=== PATIENT | male | born 1940 | race Caucasian/White ===

== ENCOUNTER 2016-09-24 13:19 | Inpatient (IN) | payer MEDICARE, BC ==
[2016-09-24] MEDS ORDERED: Ventolin HFA Inhaler 60 PUFF INHALER INH PRN (15:54)
[2016-09-24] MEDS: Mometasone/Formoterol 60 PUFF AER INH SCH (18:03)
[2016-09-24] MEDS: guaiFENesin ER 600 MG TAB PO SCH (20:22)
[2016-09-24] MEDS: Sotalol HCl 80 MG TAB PO SCH (20:22)
[2016-09-24] MEDS: Pravastatin Sodium 20 MG TAB PO SCH (20:22)
[2016-09-24] MEDS: Doxycycline 100 MG CAP PO SCH (20:23)
--- NOTE | 2016-09-25 02:03 | HP ---
Admitted to [facility] on 09/24/2016 to extended care. CHIEF COMPLAINT: Weakness. PRESENT ILLNESS: The patient is a 76-year-old white male who has a history of severe COPD with chronic hypoxic respiratory failure requiring supplemental O2. He also has coronary artery disease for which he underwent a single vessel bypass in 2009 and also has had a stent placed in 2002. He had a severe aortic stenosis for which he underwent a bioprosthetic valve replacement in 2009. He has been left with a nonischemic cardiomyopathy and has a history of a biventricular pacemaker defibrillator that was implanted on 02/23/2011 and had a generator replaced on 09/23/2016. He has been hospitalized from 08/31/2016 to 09/06/2016 for acute exacerbation of his COPD and current cardioversion of his atrial fibrillation on 09/03/2016. He most recently was hospitalized at [facility] from 09/17/2016 until 09/24/2016 for again COPD with acute exacerbation with respiratory failure that was managed without ventilator support. During the admission, the patient developed extensive atelectasis of the right lower lobe and underwent a bronchoscopy by his produce assistant, Dr. Vicente , and found extensive pus completely occluding the right lower lobe without any endobronchial lesions. This was suctioned and culture grew a yeast and Swapna. It is felt that this was all consistent with an extensive tracheobronchitis with atelectasis of the right lower lobe. The patient gradually improved. During the hospitalization, he was seen by his general utility maintenance repairer and also from road freight firer. He has a history of atrial fibrillation for which he underwent a cardioversion and has remained in sinus rhythm during the hospitalization. His echocardiogram on 09/01/2016 showed left ventricular ejection fraction of 50-55% with normal functioning aortic valve prosthesis. The patient has a history of a biventricular ICD with ablation initially placed in 2005 with generator replaced in 2010 and then again on 09/23/2016. Patient has been left extremely weak and has been referred to extended care at [facility] in [facility] for continued physical therapy in an effort to try to improve his general functional capability. The patient was dizzy with his soon after his admission and said that he is better, but extremely weak and says his breathing is better, although not quite back to normal. He says he has not been up much and can only walk short distances and requires self. PAST HISTORY: Hospitalized from 09/01/2016 to 09/06/2016. See present illness for details hospitalized from 09/17/2016 until 09/24/2016. See present illness for details. The patient was hospitalized here at [facility] from 2014 to 08/22/2015 for generalized weakness and deconditioning for which he made exceptional progress and was able to be returned to independent living at home. This had followed an intertrochanteric fracture of the left hip that required open reduction and internal fixation with a TF in nail by Dr. Plunkett on 07/26/2015. His hospital stay was initially complicated by a toxic encephalopathy secondary to a combination of surgery, pain medication i.e., fentanyl, and withdrawal from hydrocodone and alprazolam and sleep deprivation this all resolved. The patient has coronary artery disease for which he initially underwent a stent to the right coronary in 2002 and 2009 underwent a single vessel bypass. At the same time, he also underwent a bioprosthetic porcine valve replacement for aortic stenosis. He has nonischemic cardiomyopathy and has required a biventricular pacemaker defibrillator that was generator last replaced on 09/23/2016. Patient has abdominal striae of an abdominal has aneurysm for which he underwent an elective endovascular repair with endograft on 06/26/[address] Chava Nguyễn has a history of COPD, long history of cigarette abuse which he has stopped, he has hypertension, in the past has been treated for depression and anxiety. He also has gastroesophageal reflux. He has had bilateral total knee replacement. He has also had an appendectomy and has a history of diverticular disease of the colon. MEDICINES AT THE TIME OF HIS TRANSFER: Patient was on sotalol 80 mg b.i.d., Colace 100 mg b.i.d., Ecotrin 81 mg daily, MiraLax 17 g in 8 ounces of water daily, Mucinex 1200 mg b.i.d., Pravachol 40 mg daily, prednisone 10 mg daily, pantoprazole 40 mg daily, Theragran-M vitamins 1 a day, Vibramycin 100 mg b.i.d. , Dulcolax tablets 5 mg 1 tablet daily p.r.n. constipation, Dulcolax suppository 10 mg 1 per rectum daily p.r.n. constipation, Maalox 15 mL every 4 hours as needed, Tylenol 650 mg q.4 h., Ultram 50 mg every 4 hours as needed, Dulera 2 inhalations b.i.d., DuoNeb q.i.d. and every 4 hours as needed, Proventil inhaler 2 puffs every 4 hours as needed. ALLERGIES: SULFA DRUGS AND NORTRIPTYLINE. REVIEW OF SYSTEMS: GENERAL: Patient does not think he has had any recent fever. HEAD AND NECK: No complaints. PULMONARY: Patient says his breathing is not yet quite back to normal. He still has a little cough. CARDIOVASCULAR: No chest pain. GASTROINTESTINAL: He got a little bit choked eating his lunch today. Ordinarily, he does alright. He denies any nausea, vomiting or change in bowel habits. : No complaints. ADLs: Before this acute illness. Patient was weak, but was able to walk, dress himself and bathe. He was on oxygen at home. NEURO/PSYCHIATRIC: The patient has had trouble with anxiety and depression and during his hospitalization he had asked the antidepressant to be stopped because he thought he was doing fine there and he thought the medicine was over sedating him. SOCIAL HISTORY: Patient lives at home with his who assists with his care. Patient is retired that. CODE STATUS: Full code. PHYSICAL EXAMINATION: GENERAL: Shows a 76-year-old white male who is sitting up in bed. He is alert , talkative, oriented to time, place and person. He seems extremely weak, but not in any acute distress. He recognizes me and knew that he was here in [place] at the hospital. VITAL SIGNS: Shows a temperature of 98.9, pulse 69, respirations 20, O2 sat 90 % on 1-1/2 liters, and blood pressure 133/83. His weight is 150. HEAD: Normocephalic and atraumatic. EYES: Pupils are equal, round, and reactive. EARS: TMs are clear. NOSE: Normal. MOUTH AND THROAT: Normal. NECK: Carotids are equal and strong, no bruits. Thyroid not enlarged. LUNGS: Patient has fair breath sounds with some expiratory wheeze and rhonchi which are chronic for him. There were no rales. HEART: Regular rate. No murmurs. Patient has an ICD in the left upper anterior chest. The overlying the incision has andrei. There is no redness and on the dressing there is just a small spot of old blood and there is no active bleeding. ABDOMEN: Soft. No organomegaly. No areas of tenderness. Bruising over the lower abdomen. EXTREMITIES: No edema. NEUROLOGIC: Patient is oriented to time, place, person and situation, and he recognizes me, knows where he is. He has generalized weakness, but no focal weakness. IMPRESSION: 1. Generalized weakness and deconditioning, followed two hospitalization first from 08/31/2016 to 09/06/2016 and the second from 09/17/2016 until 09/24/2016, both for acute exacerbations of his COPD with respiratory failure and atrial fibrillation. 2. Recent hospitalizations from 09/17/2016 until 09/24/2016 for: A. Acute exacerbation of chronic obstructive pulmonary disease with respiratory failure with atelectasis of the right lower lobe from severe tracheobronchitis requiring bronchoscopy. B. Recent cardioversion from atrial fibrillation to normal sinus rhythm on 11/2015 and remains in sinus rhythm. C. Replacement of biventricular ICD pacemaker on 09/23/2016. D. Bronchoscopy on 09/20/2016 for right lower lobe atelectasis with removal of extensive pus completely occluding the right lower lobe with no endobronchial lesion and culture growing Swapna. 3. Coronary artery disease. A. Status post stent placement, right coronary artery in 2002. B. Status post aortic single vessel aortic valve bypass with aortic valve replacement in 2009. 4. Aortic stenosis. A. Status post aortic valve replacement with a bovina bioprosthetic valve in 2009. 5. Nonischemic cardiomyopathy. A. Required initial biventricular ICD in 2005, generator replaced 2010 and again generator replaced on 09/23/2016. B. Echocardiogram on 09/01/2016 showed an LV ejection fraction of 50-55%, normal functioning aortic valve prosthesis, bioprosthetic. 6. Severe chronic obstructive pulmonary disease complicated by chronic hypoxemia requiring supplemental O2. 7. Hypertension. 8. Hyperlipidemia. 9. Obstructive sleep apnea for which he uses a CPAP. 10. Constipation. 11. History of depression. A. Recently, the patient has opted to stop his antidepressant fluoxetine. 12. Atrial fibrillation, paroxysmal. A. Status post cardioversion on 09/03/2016. B. Remains in sinus rhythm as of 09/24/2016. PLAN: Patient has been admitted to extended care for physical therapy in an effort to try to improve his general strength, deconditioning and hope that his functional capabilities can be increased such that he will be able to manage at his home again with his . HAMIDA
[2016-09-25] MEDS: Mometasone/Formoterol 60 PUFF AER INH SCH ×2 (06:00→18:14)
[2016-09-25 08:07] LABS: Anion Gap 14 mmol/L (10-20); Carbon Dioxide 26 mmol/L (23-31); Chloride 96 mmol/L (98-107); Potassium 3.8 mmol/L (3.5-5.1); Sodium 132 mmol/L (136-145)
[2016-09-25 08:08] LABS: ALT (SGPT) 21 U/L (0-55); AST (SGOT) 18 U/L (5-34); Albumin 2.7 g/dL (3.4-4.8); Alkaline Phosphatase 47 U/L (40-150); BUN (Urea Nitrogen) 10 mg/dL (8.4-25.7); Bilirubin, Total 0.8 mg/dL (0.2-1.2); Calc. Creatinine Clearance 114 mL/min (70-130); Calcium 8.4 mg/dL (7.8-10.44); Estimated GFR-MDRD Greater than 90; Globulin 2.1 g/dL (2.4-3.5); Glucose 71 mg/dL (83-110); Protein, Total 4.8 g/dL (5.8-8.1)
[2016-09-25 08:32] LABS: Hemoglobin 9.9 g/dL (14.0-18.0); Mean Corpuscular HGB CONC 33.8 g/dL (32.0-36.0); Mean Corpuscular Hemoglobin 32.7 pg (27.0-31.0); Mean Corpuscular Volume 96.6 fl (80.0-94.0); Mean Platelet Volume 6.8 fL (7.4-10.4); Platelet Count 156 thou/uL (130-400); RBC Distribution Width 15.3 % (11.5-14.5); Red Blood Cell (RBC) Count 3.03 mill/uL (4.70-6.10); White Blood Cell (WBC) Count 6.8 thou/uL (4.8-10.8)
[2016-09-25 08:34] LABS: Band 12 % (5-11); MDiff Complete? YES; Neutrophil 80 % (42-75)
[2016-09-25 08:35] LABS: Anisocytosis SLIGHT = 6-15 cells (100X) (0-5/hpf); Delete Auto Diff?? YES; Hypochromia MODERATE=16-30 cells (100X) (0-5/hpf); Lymphocytes 6 % (21-51); Macrocytosis SLIGHT = 6-15 cells (100X) (0-5/hpf); Monocytes 2 % (0-10); Target Cells SLIGHT = 2-5 cells (100X) (0-1/hpf)
[2016-09-25] MEDS: guaiFENesin ER 600 MG TAB PO SCH ×2 (08:55→20:46)
[2016-09-25] MEDS: predniSONE 20 MG TAB PO SCH (08:56)
[2016-09-25] MEDS: Doxycycline 100 MG CAP PO SCH ×2 (08:57→20:46)
[2016-09-25] MEDS: Aspirin 81 mg Enteric Coated Tablet PO SCH (08:57)
[2016-09-25] MEDS: Multivit, Therapeutic 1 TAB PO SCH (09:02)
[2016-09-25] MEDS: Polyethylene Glycol 3350 17 GM Packet PO SCH (09:02)
[2016-09-25] MEDS: Sotalol HCl 80 MG TAB PO SCH ×2 (09:03→20:46)
[2016-09-25] MEDS: Pravastatin Sodium 20 MG TAB PO SCH (20:46)
--- NOTE | 2016-09-26 07:22 | PRG ---
DATE OF SERVICE: 09/25/2016 SUBJECTIVE: The patient said he is doing okay today. He said he got a little choked eating, but he says he does better if he just really eat slow and takes his time. OBJECTIVE: GENERAL: The patient is in bed with head elevated about 30 degrees. He appears comfortable and in no distress. VITAL SIGNS: His temperature is 97.7, pulse 70, respirations 20, O2 sat 95% on 2 liters, blood pres sure 153/82. LUNGS: Breath sounds are moderate. There are no rales. The patient has some chronic wheezes over the posterior chest. HEART: Regular rate. EXTREMITIES: No edema. The patient is wearing said serial compression devices on his legs. LABORATORY DATA: His lab shows an H\T\H of 9 and 29.3, white blood cell count is 6800 with 80% segs , 6% lymphocytes, and platelet count of 156,000. Sodium 132, potassium 3.8, BUN 10, creatinine 0.53 , GFR over 90, glucose 71, albumin 2.7. The patient had a CT scan of the abdomen and pelvis that was done on 09/19/2016 that showed a right abdominal wall rectus muscle hematoma. As a consequence, his Eliquis has been held and also the Roman enox, he has not received. Presently for DVT prophylaxis, he is using the serial compression device s on the legs. ASSESSMENT: 1. Generalized weakness and deconditioning, followed two hospitalization first from 08/31/2016 to 09/06/2016 and the second from 09/17/2016 until 09/24/2016, both for acute exacerbations of his COPD with respiratory failure and atrial fibrillation. 2. Recent hospitalizations from 09/17/2016 until 09/24/2016 for: A. Acute exacerbation of chronic obstructive pulmonary disease with respiratory failure with atelectasis of the right lower lobe from severe tracheobronchitis requiring bronchoscopy. B. Recent cardioversion from atrial fibrillation to normal sinus rhythm on 09/03/2016 and remai ns in sinus rhythm. C. Replacement of biventricular ICD pacemaker on 09/23/2016. D. Bronchoscopy on 09/20/2016 for right lower lobe atelectasis with removal of extensive pus c ompletely occluding the right lower lobe with no endobronchial lesion and culture growing Swapna. 3. Coronary artery disease. A. Status post stent placement, right coronary artery in 2002. B. Status post aortic single vessel aortic valve bypass with aortic valve replacement in 2009. 4. Aortic stenosis. A. Status post aortic valve replacement with a bovina bioprosthetic valve in 2009. 5. Nonischemic cardiomyopathy. A. Required initial biventricular ICD in 2005, generator replaced 2010 and again generator repl aced on 09/23/2016. B. Echocardiogram on 09/01/2016 showed an LV ejection fraction of 50-55%, normal functioning aortic valve prosthesis, bioprosthetic. 6. Severe chronic obstructive pulmonary disease complicated by chronic hypoxemia requiring suppleme ntal O2. 7. Hypertension. 8. Hyperlipidemia. 9. Obstructive sleep apnea for which he uses a CPAP. 10. Constipation. 11. History of depression. A. Recently, the patient has opted to stop his antidepressant fluoxetine. 12. Atrial fibrillation, paroxysmal. A. Status post cardioversion on 09/03/2016. B. Remains in sinus rhythm as of 09/24/2016. C. Anticoagulants being held due to right abdominal rectus muscle hematoma. PLAN: Continue PT. Continue present care. Encourage patient to sit upright when eating. Eat slow and chew foods well. The patient is using SCDs for DVT prophylaxis on his legs since anticoagulant Eliquis was stopped and Lovenox not started due to the rectus muscle hematoma.
[2016-09-26] MEDS: Polyethylene Glycol 3350 17 GM Packet PO SCH (09:48)
[2016-09-26] MEDS: Mometasone/Formoterol 60 PUFF AER INH SCH ×2 (09:48→21:50)
[2016-09-26] MEDS: Doxycycline 100 MG CAP PO SCH ×2 (09:49→21:51)
[2016-09-26] MEDS: guaiFENesin ER 600 MG TAB PO SCH ×2 (09:49→21:52)
[2016-09-26] MEDS: Sotalol HCl 80 MG TAB PO SCH ×2 (09:49→21:51)
[2016-09-26] MEDS: predniSONE 20 MG TAB PO SCH (09:49)
[2016-09-26] MEDS: Multivit, Therapeutic 1 TAB PO SCH (09:49)
[2016-09-26] MEDS: Aspirin 81 mg Enteric Coated Tablet PO SCH (09:50)
[2016-09-26] MEDS ORDERED: Fluconazole 100 MG TAB PO SCH (12:15)
[2016-09-26] MEDS: Nystatin 500,000 UNITS/5 ML UDCUP SSW SCH ×3 (12:24→21:52)
[2016-09-26] MEDS: Acetaminophen 325 MG TAB PO PRN (14:17)
[2016-09-26] MEDS: Pravastatin Sodium 20 MG TAB PO SCH (21:52)
[2016-09-27] MEDS: Mometasone/Formoterol 60 PUFF AER INH SCH ×2 (08:40→19:12)
[2016-09-27] MEDS: predniSONE 20 MG TAB PO SCH (08:40)
[2016-09-27] MEDS: Aspirin 81 mg Enteric Coated Tablet PO SCH (08:41)
[2016-09-27] MEDS: Fluconazole 100 MG TAB PO SCH (08:41)
[2016-09-27] MEDS: Doxycycline 100 MG CAP PO SCH ×2 (08:41→20:37)
[2016-09-27] MEDS: Nystatin 500,000 UNITS/5 ML UDCUP SSW SCH ×4 (08:42→20:37)
[2016-09-27] MEDS: Multivit, Therapeutic 1 TAB PO SCH (08:42)
[2016-09-27] MEDS: guaiFENesin ER 600 MG TAB PO SCH ×2 (08:42→20:36)
[2016-09-27] MEDS: Sotalol HCl 80 MG TAB PO SCH ×2 (08:43→20:37)
[2016-09-27] MEDS: Polyethylene Glycol 3350 17 GM Packet PO SCH (08:46)
--- NOTE | 2016-09-27 18:32 | PRG ---
DATE OF SERVICE: 09/27/2016 SUBJECTIVE: The patient said he is not sleeping very good at night at home. He says he uses melato karis. The patient said his mouth had been sore, it felt like a yeast infection. Yesterday, he was s tarted on Mycostatin oral suspension and to swish and swallow and Diflucan. Today, he says he feels a little better. OBJECTIVE: GENERAL: The patient is sitting up in a bedside chair. He is alert and appears comfortable, in no distress. VITAL SIGNS: Shows temperature of 98.4, pulse 79, blood pressure 121/75, respirations 16, O2 sat 96 % on 2 liters. LUNGS: Breath sounds are some rhonchi on forced expiration and mild expiratory wheeze. HEART: Reg ular rate. EXTREMITIES: No edema. HEENT: Mouth the tongue has increased red discoloration. ASSESSMENT: 1. Generalized weakness and deconditioning, followed two hospitalization first from 08/31/2016 to 1 11/07/2015 and the second from 09/17/2016 until 09/24/2016, both for acute exacerbations of his COPD with respiratory failure and atrial fibrillation. A. Mild improvement as of 09/27/2016. 2. Recent hospitalizations from 09/17/2016 until 09/24/2016 for: A. Acute exacerbation of chronic obstructive pulmonary disease with respiratory failure with at electasis of the right lower lobe from severe tracheobronchitis requiring bronchoscopy. B. Recent cardioversion from atrial fibrillation to normal sinus rhythm on 09/03/2016 and remai ns in sinus rhythm. C. Replacement of biventricular ICD pacemaker on 09/23/2016. D. Bronchoscopy on 09/20/2016 for right lower lobe atelectasis with removal of extensive pus co mpletely occluding the right lower lobe with no endobronchial lesion and culture growing Swapna. 3. Coronary artery disease. A. Status post stent placement, right coronary artery in 2002. B. Status post aortic single vessel aortic valve bypass with aortic valve replacement in 2009. C. Gradual improvement as of 09/27/2016 4. Aortic stenosis. A. Status post aortic valve replacement with a bovina bioprosthetic valve in 2009. 5. Nonischemic cardiomyopathy. A. Required initial biventricular ICD in 2005, generator replaced 2010 and again generator repl aced on 09/23/2016. B. Echocardiogram on 09/01/2016 showed an LV ejection fraction of 50-55%, normal functioning ao rtic valve prosthesis, bioprosthetic. 6. Severe chronic obstructive pulmonary disease complicated by chronic hypoxemia requiring suppleme ntal O2. 7. Hypertension. 8. Hyperlipidemia. 9. Obstructive sleep apnea for which he uses a CPAP. 10. Constipation. 11. History of depression. A. Recently, the patient has opted to stop his antidepressant fluoxetine. 12. Atrial fibrillation, paroxysmal. A. Status post cardioversion on 09/03/2016. B. Remains in sinus rhythm as of 09/24/2016. C. Anticoagulants being held due to right abdominal rectus muscle hematoma. 13. Oral candidiasis. 14. Insomnia. PLAN: We will schedule patient's DuoNeb treatments q.i.d. and may use additionally every [address] him on melatonin at bedtime to help with sleep. We will continue the Mycostatin ora l suspension for a total of 10 days and Diflucan orally for a total of 7 days. Continue physical th erapy. The incision over the left upper anterior chest from the ICD generator change out is healing well.
[2016-09-27] MEDS: Melatonin 3 MG TAB PO SCH (20:37)
[2016-09-27] MEDS: Pravastatin Sodium 20 MG TAB PO SCH (20:37)
[2016-09-28] MEDS: Mometasone/Formoterol 60 PUFF AER INH SCH ×2 (06:05→18:39)
[2016-09-28] MEDS: Polyethylene Glycol 3350 17 GM Packet PO SCH (08:44)
[2016-09-28] MEDS: guaiFENesin ER 600 MG TAB PO SCH ×2 (08:45→20:23)
[2016-09-28] MEDS: Sotalol HCl 80 MG TAB PO SCH ×2 (08:45→20:24)
[2016-09-28] MEDS: Aspirin 81 mg Enteric Coated Tablet PO SCH (08:45)
[2016-09-28] MEDS: Multivit, Therapeutic 1 TAB PO SCH (08:45)
[2016-09-28] MEDS: Fluconazole 100 MG TAB PO SCH (08:45)
[2016-09-28] MEDS: predniSONE 20 MG TAB PO SCH (08:45)
[2016-09-28] MEDS: Doxycycline 100 MG CAP PO SCH ×2 (08:46→20:23)
[2016-09-28] MEDS: Nystatin 500,000 UNITS/5 ML UDCUP SSW SCH ×4 (08:46→20:23)
--- NOTE | 2016-09-28 09:18 | PRG ---
DATE OF SERVICE: 09/28/2016 SUBJECTIVE: The patient said that his mouth is sore. The patient walked this morning with his O2 a t 2 liters by nasal cannula on. His O2 sat after walking was 86%, but after sitting and his nebs tr eatment, it was up to 96%. OBJECTIVE: The patient is sitting in his bedside chair. He is alert. He appears comfortable, not in any acute distress. The mouth and tongue is less red. There are no ulcerations. The patient h as only a few remaining teeth. His lungs have fair breath sounds. There was no wheezing, no rales after his neb treatments. The nurse reported before the breathing treatment there was some fine whe ezes on expiration. Heart, regular rate. Extremities, no edema. ASSESSMENT: 1. Generalized weakness and deconditioning, followed two hospitalization first from 08/31/2016 to 11/07/2015 and the second from 09/17/2016 until 09/24/2016, both for acute exacerbations of his COPD with respiratory failure and atrial fibrillation. A. Very slow gradual improvement as of 09/28/2016. 2. Recent hospitalizations from 09/17/2016 until 09/24/2016 for: A. Acute exacerbation of chronic obstructive pulmonary disease with respiratory failure with at electasis of the right lower lobe from severe tracheobronchitis requiring bronchoscopy. B. Recent cardioversion from atrial fibrillation to normal sinus rhythm on 09/03/2016 and remai ns in sinus rhythm. C. Replacement of biventricular ICD pacemaker on 09/23/2016. D. Bronchoscopy on 09/20/2016 for right lower lobe atelectasis with removal of extensive pus co mpletely occluding the right lower lobe with no endobronchial lesion and culture growing Swapna. 3. Coronary artery disease. A. Status post stent placement, right coronary artery in 2002. B. Status post aortic single vessel aortic valve bypass with aortic valve replacement in 2009. C. Gradual improvement as of 09/27/2016 4. Aortic stenosis. A. Status post aortic valve replacement with a bovina bioprosthetic valve in 2009. 5. Nonischemic cardiomyopathy. A. Required initial biventricular ICD in 2005, generator replaced 2010 and again generator repl aced on 09/23/2016. B. Echocardiogram on 09/01/2016 showed an LV ejection fraction of 50-55%, normal functioning ao rtic valve prosthesis, bioprosthetic. 6. Severe chronic obstructive pulmonary disease complicated by chronic hypoxemia requiring suppleme ntal O2. 7. Hypertension. 8. Hyperlipidemia. 9. Obstructive sleep apnea for which he uses a CPAP. 10. Constipation. 11. History of depression. A. Recently, the patient has opted to stop his antidepressant fluoxetine. 12. Atrial fibrillation, paroxysmal. A. Status post cardioversion on 09/03/2016. B. Remains in sinus rhythm as of 09/24/2016. C. Anticoagulants being held due to right abdominal rectus muscle hematoma. 13. Oral candidiasis. A. Mild improvement, but still symptomatic as of 09/28/2016. 14. Insomnia. PLAN: Continue present care. Continue PT. Continue continuous O2. Will add Spiriva to his COPD r eghiram.
[2016-09-28] MEDS ORDERED: Ipratropium Bromide 2.5 ml Neb NEB SCH (13:00)
[2016-09-28] MEDS: Acetaminophen 325 MG TAB PO PRN (14:09)
[2016-09-28] MEDS: Melatonin 3 MG TAB PO SCH (20:23)
[2016-09-28] MEDS: Pravastatin Sodium 20 MG TAB PO SCH (20:24)
[2016-09-29] MEDS: Mometasone/Formoterol 60 PUFF AER INH SCH ×2 (08:38→18:23)
[2016-09-29] MEDS: guaiFENesin ER 600 MG TAB PO SCH ×2 (08:39→21:17)
[2016-09-29] MEDS: Nystatin 500,000 UNITS/5 ML UDCUP SSW SCH ×4 (08:39→21:17)
[2016-09-29] MEDS: predniSONE 20 MG TAB PO SCH (08:40)
[2016-09-29] MEDS: Multivit, Therapeutic 1 TAB PO SCH (08:40)
[2016-09-29] MEDS: Doxycycline 100 MG CAP PO SCH ×2 (08:40→21:17)
[2016-09-29] MEDS: Aspirin 81 mg Enteric Coated Tablet PO SCH (08:40)
[2016-09-29] MEDS: Polyethylene Glycol 3350 17 GM Packet PO SCH (08:40)
[2016-09-29] MEDS: Fluconazole 100 MG TAB PO SCH (08:40)
[2016-09-29] MEDS: Sotalol HCl 80 MG TAB PO SCH ×2 (08:40→21:18)
--- NOTE | 2016-09-29 13:03 | PRG ---
DATE OF SERVICE: 09/29/2016 SUBJECTIVE: The patient is lying in bed, said he is feeling okay. Mouth is still sore. He is wait ing until after breakfast for physical therapy. His breathing is doing okay. OBJECTIVE: The patient is lying in bed, alert, and appears comfortable in no distress. His temp is 97.6, pulse 71, respirations 20, O2 sat 96%, blood pressure 109/81. Lungs with fair breath sounds with some mild expiratory wheeze, otherwise chest is clear. Heart, regular rate. Mouth; the baldomero e has a nice pink appearance. There are no ulcerations or white plaques on the buccal mucosa, nor o n the tongue. Overall the mouth looks better. ASSESSMENT: 1. Generalized weakness and deconditioning, followed two hospitalization first from 08/31/2016 to 1 11/07/2015 and the second from 09/17/2016 until 09/24/2016, both for acute exacerbations of his COPD with respiratory failure and atrial fibrillation. A. Very slow gradual improvement as of 09/29/2016. 2. Recent hospitalizations from 09/17/2016 until 09/24/2016 for: A. Acute exacerbation of chronic obstructive pulmonary disease with respiratory failure with at electasis of the right lower lobe from severe tracheobronchitis requiring bronchoscopy. B. Recent cardioversion from atrial fibrillation to normal sinus rhythm on 09/03/2016 and remai ns in sinus rhythm. C. Replacement of biventricular ICD pacemaker on 09/23/2016. D. Bronchoscopy on 09/20/2016 for right lower lobe atelectasis with removal of extensive pus co mpletely occluding the right lower lobe with no endobronchial lesion and culture growing Swapna. 3. Coronary artery disease. A. Status post stent placement, right coronary artery in 2002. B. Status post aortic single vessel aortic valve bypass with aortic valve replacement in 2009. C. Gradual improvement as of 09/27/2016 4. Aortic stenosis. A. Status post aortic valve replacement with a bovina bioprosthetic valve in 2009. 5. Nonischemic cardiomyopathy. A. Required initial biventricular ICD in 2005, generator replaced 2010 and again generator repl aced on 09/23/2016. B. Echocardiogram on 09/01/2016 showed an LV ejection fraction of 50-55%, normal functioning ao rtic valve prosthesis, bioprosthetic. C. No evidence of acute congestive heart failure as of 09/29/2016. 6. Severe chronic obstructive pulmonary disease complicated by chronic hypoxemia requiring suppleme ntal O2. 7. Hypertension. 8. Hyperlipidemia. 9. Obstructive sleep apnea for which he uses a CPAP. 10. Constipation. 11. History of depression. A. Recently, the patient has opted to stop his antidepressant fluoxetine. 12. Atrial fibrillation, paroxysmal. A. Status post cardioversion on 09/03/2016. B. Remains in sinus rhythm as of 09/24/2016. C. Anticoagulants being held due to right abdominal rectus muscle hematoma. 13. Oral candidiasis. A. Mild improvement, but still symptomatic as of 09/29/2016. 14. Insomnia. PLAN: Continue present care. Continue Mycostatin oral suspension and the Diflucan.
[2016-09-29] MEDS: Pravastatin Sodium 20 MG TAB PO SCH (21:18)
[2016-09-29] MEDS: Melatonin 3 MG TAB PO SCH (21:19)
[2016-09-30] MEDS: Mometasone/Formoterol 60 PUFF AER INH SCH ×2 (05:33→19:56)
[2016-09-30] MEDS: Nystatin 500,000 UNITS/5 ML UDCUP SSW SCH ×4 (08:31→22:03)
[2016-09-30] MEDS: predniSONE 20 MG TAB PO SCH (08:32)
[2016-09-30] MEDS: Multivit, Therapeutic 1 TAB PO SCH (08:32)
[2016-09-30] MEDS: Fluconazole 100 MG TAB PO SCH (08:32)
[2016-09-30] MEDS: Polyethylene Glycol 3350 17 GM Packet PO SCH ×2 (08:32→08:33)
[2016-09-30] MEDS: guaiFENesin ER 600 MG TAB PO SCH ×2 (08:32→22:02)
[2016-09-30] MEDS: Doxycycline 100 MG CAP PO SCH ×2 (08:33→22:02)
[2016-09-30] MEDS: Sotalol HCl 80 MG TAB PO SCH ×2 (08:33→22:03)
[2016-09-30] MEDS: Aspirin 81 mg Enteric Coated Tablet PO SCH (08:33)
--- NOTE | 2016-09-30 12:22 | PRG ---
DATE OF SERVICE: 09/30/2016 SUBJECTIVE: The patient said he slept pretty good last night. The patient says that he sat up this morning he just got where he would not feeling good and was anxious. The nurses report that after any activity he gets very anxious and wants some breathing treatment. The patient says he has no ap petite and just not eating. OBJECTIVE: GENERAL: The patient is sitting up in bed, is anxious, but does not appear in any acute respiratory distress. VITAL SIGNS: His temperature is 97.5, pulse 75, respirations 22, O2 saturation on 3 liters last nig ht was 93%. LUNGS: Fair breath sounds. There are some rales at the bases posteriorly and some mild wheeze on e xpiration. HEART: Regular rate. EXTREMITIES: No edema. ASSESSMENT: 1. Generalized weakness and deconditioning, followed two hospitalization first from 08/31/2016 to 1 11/07/2015 and the second from 09/17/2016 until 09/24/2016, both for acute exacerbations of his COPD with respiratory failure and atrial fibrillation. A. Very slow improvement, but has some shortness of breath with exertion as of 09/30/2016. 2. Recent hospitalizations from 09/17/2016 until 09/24/2016 for: A. Acute exacerbation of chronic obstructive pulmonary disease with respiratory failure with at electasis of the right lower lobe from severe tracheobronchitis requiring bronchoscopy. B. Recent cardioversion from atrial fibrillation to normal sinus rhythm on 09/03/2016 and remai ns in sinus rhythm. C. Replacement of biventricular ICD pacemaker on 09/23/2016. D. Bronchoscopy on 09/20/2016 for right lower lobe atelectasis with removal of extensive pus co mpletely occluding the right lower lobe with no endobronchial lesion and culture growing Swapna. 3. Coronary artery disease. A. Status post stent placement, right coronary artery in 2002. B. Status post aortic single vessel aortic valve bypass with aortic valve replacement in 2009. C. Stable as of 09/30/2016. 4. Aortic stenosis. A. Status post aortic valve replacement with a bovina bioprosthetic valve in 2009. 5. Nonischemic cardiomyopathy. A. Required initial biventricular ICD in 2005, generator replaced 2010 and again generator repl aced on 09/23/2016. B. Echocardiogram on 09/01/2016 showed an LV ejection fraction of 50-55%, normal functioning ao rtic valve prosthesis, bioprosthetic. C. No evidence of acute congestive heart failure as of 09/30/2016. 6. Severe chronic obstructive pulmonary disease complicated by chronic hypoxemia requiring suppleme ntal O2. 7. Hypertension. 8. Hyperlipidemia. 9. Obstructive sleep apnea for which he uses a CPAP. 10. Constipation. 11. History of depression. A. Recently, the patient has opted to stop his antidepressant fluoxetine. 12. Atrial fibrillation, paroxysmal. A. Status post cardioversion on 09/03/2016. B. Remains in sinus rhythm as of 09/24/2016. C. Anticoagulants being held due to right abdominal rectus muscle hematoma. 13. Oral candidiasis. A. Improved as of 09/30/2016. 14. Insomnia. 15. Anxiety and depression. 16. Anorexia. PLAN: Continue physical therapy, encourage the patient to participate. We will place the patient o n mirtazapine 30 mg at bedtime to try to help with his appetite and also help with anxiety and depre ssion.
--- NOTE | 2016-09-30 12:52 | PRG ---
DATE OF SERVICE: 09/30/2016 SUBJECTIVE: This morning, the patient said he just has not felt right. He has felt more short of b reath. He has been anxious with this. He started feeling better and then mid morning did walk with therapy with his oxygen, but even with this, his O2 sat dropped to 86. His went back to bed and O2 temporarily was up to 4 liters. He is lying in bed now just at 3.5 liters. The nurse said he seem s to have settled down. He had become very anxious. OBJECTIVE: The patient is lying in bed, looks in no respiratory distress. The patient's O2 sat 89% on 3.5 liters. His blood pressure earlier was 120/73, respirations are 18. His lungs have moderat e breath sounds, much better from this morning. There is no wheezing, no rales. Overall, his lungs sound clear. Heart, regular rate. Extremities, no edema. The EKG shows a paced rhythm with a rat e of 74. His chest x-ray shows the lungs are clear except for a small left-sided pleural effusion o bscuring the costophrenic angle and also possible little fluid or atelectasis in the major fissure. ASSESSMENT: Episode of increased shortness of breath that was exacerbated with exercise with drop i n her O2 sat secondary to his severe chronic obstructive pulmonary disease with chronic hypoxic resp iratory failure requiring the supplemental O2. The patient may have a little bit of mild failure wi th the small left pleural effusion fluid or atelectasis in the major fissure. We will start patient on furosemide 40 mg daily and see if this will help some. We will weigh daily. Recheck electrolyt es and CBC in the morning. Continue nebulizer treatments. Continue supplemental O2. I had ordered mirtazapine, which will start tonight for his anxiety and depression. 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
--- NOTE | 2016-09-30 15:48 | RAD ---
PORTABLE AP CHEST XRAY: DATE: 09/30/16. HISTORY: Low oxygen saturation and shortness of breath. FINDINGS: Compared to the study on 09/17/16. The linear parenchymal changes of the right lung base have improved. Pleural and parenchymal change s of the left lung base have also improved. However, there are now interstitial and patchy alveolar opacities present within the right mid lung zone in the region of previous nodular density. This c ould be related to pneumonia and followup to complete resolution is recommended to exclude neoplasti c process. Postsurgical changes related to median sternotomy are noted. Triple-lead left subclavian AICD devic e is unchanged in position. No other interval change. IMPRESSION: 1. Interval development of interstitial and alveolar opacities in the right mid lung zone which is probably related to pneumonia. However, followup to complete resolution is recommended to ensure re solution as there was a nodular density seen in this region on prior exam. 2. Improvement in aeration at each lung base. POS: CARLOS
[2016-09-30] MEDS: Melatonin 3 MG TAB PO SCH (22:01)
[2016-09-30] MEDS: Mirtazapine 15 MG TAB PO SCH (22:02)
[2016-09-30] MEDS: Pravastatin Sodium 20 MG TAB PO SCH (22:03)
[2016-10-01 07:18] LABS: #Lymphocytes 0.9 thou/uL (1.20-3.40); #Monocytes 0.5 thou/uL (0.11-0.59); #Neutrophils 6.4 thou/uL (1.40-6.50); %Basophils 0.5 % (0.0-1.0); %Eosinophils 0.2 % (0.0-10.0); %Lymphocytes 11.6 % (21.0-51.0); %Monocytes 6.9 % (0.0-10.0); %Neutrophils 80.8 % (42.0-75.0); Hemoglobin 11.7 g/dL (14.0-18.0); Mean Corpuscular HGB CONC 32.9 g/dL (32.0-36.0); Mean Corpuscular Hemoglobin 32.1 pg (27.0-31.0); Mean Corpuscular Volume 97.5 fl (80.0-94.0); Mean Platelet Volume 6.1 fL (7.4-10.4); Platelet Count 174 thou/uL (130-400); RBC Distribution Width 15.4 % (11.5-14.5); Red Blood Cell (RBC) Count 3.66 mill/uL (4.70-6.10); White Blood Cell (WBC) Count 7.9 thou/uL (4.8-10.8)
[2016-10-01 07:22] LABS: Anion Gap 22 mmol/L (10-20); BUN (Urea Nitrogen) 17 mg/dL (8.4-25.7); Calc. Creatinine Clearance 93 mL/min (70-130); Calcium 9.6 mg/dL (7.8-10.44); Carbon Dioxide 24 mmol/L (23-31); Chloride 92 mmol/L (98-107); Estimated GFR-MDRD Greater than 90; Glucose 76 mg/dL (83-110); Potassium 4.8 mmol/L (3.5-5.1); Sodium 133 mmol/L (136-145)
[2016-10-01] MEDS: Mometasone/Formoterol 60 PUFF AER INH SCH ×2 (07:31→18:35)
[2016-10-01] MEDS: Docusate 100 MG CAP PO SCH (08:14)
[2016-10-01] MEDS: Nystatin 500,000 UNITS/5 ML UDCUP SSW SCH ×4 (08:14→21:14)
[2016-10-01] MEDS: Multivit, Therapeutic 1 TAB PO SCH (08:14)
[2016-10-01] MEDS: Doxycycline 100 MG CAP PO SCH ×2 (08:14→21:15)
[2016-10-01] MEDS: guaiFENesin ER 600 MG TAB PO SCH ×2 (08:14→21:17)
[2016-10-01] MEDS: Fluconazole 100 MG TAB PO SCH (08:14)
[2016-10-01] MEDS: Furosemide 40 MG TAB PO SCH (08:14)
[2016-10-01] MEDS: Sotalol HCl 80 MG TAB PO SCH ×2 (08:14→21:14)
[2016-10-01] MEDS: predniSONE 20 MG TAB PO SCH (08:15)
[2016-10-01] MEDS: Aspirin 81 mg Enteric Coated Tablet PO SCH (08:15)
[2016-10-01] MEDS: Saccharomyces boulardii 250 MG CAP PO SCH (09:55)
[2016-10-01] MEDS: Cefdinir 300 MG CAP PO SCH ×2 (09:55→21:15)
--- NOTE | 2016-10-01 10:00 | PRG ---
DATE OF SERVICE: 10/01/2016 SUBJECTIVE: The patient said he had a pretty good night, slept better. He did get started on the m irtazapine 15 mg. I opted to start him on a lower dose 15 mg instead of 30. The patient said he se emed to sleep good. He is anxious to try his breakfast and hopes medicine will help with his appeti te. OBJECTIVE: The patient lying in bed, appears comfortable and in no distress and seems much more rel axed than what he has. He does not appear anxious. He does not appear to be having any shortness o f breath. His temperature is 98, pulse 76, respirations 18, O2 sat 95%, blood pressure 120/73. Bob gs are clear, breath sounds are fair. Heart, regular rate. Extremities, no edema. Radiologist rev iewed the chest x-ray from yesterday and said that the linear parenchymal changes in the right lung base have improved. There is still some small effusion at the left lung base and there is also an i nterstitial and patchy alveolar opacity within the right mid lung zone. This could be related to po ssible underlying pneumonia. ASSESSMENT: 1. Generalized weakness and deconditioning, followed two hospitalization first from 08/31/2016 to 09/06/2016 and the second from 09/17/2016 until 09/24/2016, both for acute exacerbations of his COPD with respiratory failure and atrial fibrillation. A. Very slow improvement, but has some shortness of breath with exertion as of 10/01/2016. 2. Recent hospitalizations from 09/17/2016 until 09/24/2016 for: A. Acute exacerbation of chronic obstructive pulmonary disease with respiratory failure with atelectasis of the right lower lobe from severe tracheobronchitis requiring bronchoscopy. B. Recent cardioversion from atrial fibrillation to normal sinus rhythm on 09/03/2016 and remai ns in sinus rhythm. C. Replacement of biventricular ICD pacemaker on 09/23/2016. D. Bronchoscopy on 09/20/2016 for right lower lobe atelectasis with removal of extensive pus co mpletely occluding the right lower lobe with no endobronchial lesion and culture growing Swapna. 3. Coronary artery disease. A. Status post stent placement, right coronary artery in 2002. B. Status post aortic single vessel aortic valve bypass with aortic valve replacement in 2009. C. Stable as of 09/30/2016. 4. Aortic stenosis. A. Status post aortic valve replacement with a bovina bioprosthetic valve in 2009. 5. Nonischemic cardiomyopathy. A. Required initial biventricular ICD in 2005, generator replaced 2010 and again generator repl aced on 09/23/2016. B. Echocardiogram on 09/01/2016 showed an LV ejection fraction of 50-55%, normal functioning ao rtic valve prosthesis, bioprosthetic. C. The patient has small left pleural effusion and some little fluid or infiltrate in the right middle lobe, possibly secondary to some mild systolic heart failure as of 10/01/2016 for which he was started on furosemide on 09/30/2016. 6. Severe chronic obstructive pulmonary disease complicated by chronic hypoxemia requiring suppleme ntal O2. A. Interstitial and alveolar infiltrate right middle lobe, possible pneumonia on x-ray of 09/30. 7. Hypertension. 8. Hyperlipidemia. 9. Obstructive sleep apnea for which he uses a CPAP. 10. Constipation. 11. History of depression. A. Recently, the patient has opted to stop his antidepressant fluoxetine. 12. Atrial fibrillation, paroxysmal. A. Status post cardioversion on 09/03/2016. B. Remains in sinus rhythm as of 09/24/2016. C. Anticoagulants being held due to right abdominal rectus muscle hematoma. 13. Oral candidiasis. A. Improved as of 10/01/2016. 14. Insomnia. A. Improved as of 10/01/2016. 15. Anxiety and depression. 16. Anorexia. PLAN: Continue present care. The patient is still on the vibramycin that he was placed on during his hospitalization. The patient completes his course of vibramycin as of 10/01/2016. This may be a contributor to the poor appetite. We will not use Levaquin because of potential QT prolongation, will instead use Cefdinir 300 mg b.i.d. in the event there is some pneumonia in that right middle lo be versus some fluid. Will continue PT.
[2016-10-01] MEDS: Pravastatin Sodium 20 MG TAB PO SCH (21:15)
[2016-10-01] MEDS: Mirtazapine 15 MG TAB PO SCH (21:16)
[2016-10-01] MEDS: Melatonin 3 MG TAB PO SCH (21:17)
[2016-10-02] MEDS: Mometasone/Formoterol 60 PUFF AER INH SCH ×2 (07:35→18:06)
[2016-10-02] MEDS: predniSONE 20 MG TAB PO SCH (08:31)
[2016-10-02] MEDS: Docusate 100 MG CAP PO SCH (08:32)
[2016-10-02] MEDS: Cefdinir 300 MG CAP PO SCH ×2 (08:32→20:02)
[2016-10-02] MEDS: Aspirin 81 mg Enteric Coated Tablet PO SCH (08:32)
[2016-10-02] MEDS: Fluconazole 100 MG TAB PO SCH (08:32)
[2016-10-02] MEDS: Sotalol HCl 80 MG TAB PO SCH ×2 (08:33→20:03)
[2016-10-02] MEDS: guaiFENesin ER 600 MG TAB PO SCH ×2 (08:33→20:04)
[2016-10-02] MEDS: Furosemide 40 MG TAB PO SCH (08:33)
[2016-10-02] MEDS: Saccharomyces boulardii 250 MG CAP PO SCH (08:33)
[2016-10-02] MEDS: Multivit, Therapeutic 1 TAB PO SCH (08:34)
[2016-10-02] MEDS: Nystatin 500,000 UNITS/5 ML UDCUP SSW SCH ×4 (08:34→20:02)
--- NOTE | 2016-10-02 15:03 | PRG ---
DATE OF SERVICE: 10/02/2016 SUBJECTIVE: The patient said he is feeling better today. He said he slept good last night and his appetite has been better. His breathing has been better. OBJECTIVE: GENERAL: The patient is lying in bed, looks very comfortable and calm. He appears in no distress. VITAL SIGNS: Shows a temperature of 98.8, pulse 71, respirations 18-20, O2 sat is 92%-97% on 3-1/2 liters, blood pressure 138/92. LUNGS: Clear except for just very minimal rhonchi on expiration. HEART: Regular rate. EXTREMITIES: No edema. ASSESSMENT: 1. Generalized weakness and deconditioning, followed two hospitalization first from 08/31/2016 to 09/06/2016 and the second from 09/17/2016 until 09/24/2016, both for acute exacerbations of his COPD with respiratory failure and atrial fibrillation. A. Gradual improvement as of 10/02/2016. 2. Recent hospitalizations from 09/17/2016 until 09/24/2016 for: A. Acute exacerbation of chronic obstructive pulmonary disease with respiratory failure with atelectasis of the right lower lobe from severe tracheobronchitis requiring bronchoscopy. B. Recent cardioversion from atrial fibrillation to normal sinus rhythm on 09/03/2016 and remai ns in sinus rhythm. C. Replacement of biventricular ICD pacemaker on 09/23/2016. D. Bronchoscopy on 09/20/2016 for right lower lobe atelectasis with removal of extensive pus co mpletely occluding the right lower lobe with no endobronchial lesion and culture growing Swapna. 3. Coronary artery disease. A. Status post stent placement, right coronary artery in 2002. B. Status post aortic single vessel aortic valve bypass with aortic valve replacement in 2009. C. Stable as of 09/30/2016. 4. Aortic stenosis. A. Status post aortic valve replacement with a bovina bioprosthetic valve in 2009. 5. Nonischemic cardiomyopathy. A. Required initial biventricular ICD in 2005, generator replaced 2010 and again generator repl aced on 09/23/2016. B. Echocardiogram on 09/01/2016 showed an LV ejection fraction of 50-55%, normal functioning ao rtic valve prosthesis, bioprosthetic. C. Mild diastolic congestive heart failure, resolving as of 10/02/2016. 6. Severe chronic obstructive pulmonary disease complicated by chronic hypoxemia requiring suppleme ntal O2. A. Improved as of 10/02/2016. 7. Hypertension. 8. Hyperlipidemia. 9. Obstructive sleep apnea for which he uses a CPAP. 10. Constipation. 11. History of depression. A. Recently, the patient has opted to stop his antidepressant fluoxetine. 12. Atrial fibrillation, paroxysmal. A. Status post cardioversion on 09/03/2016. B. Remains in sinus rhythm as of 09/24/2016. C. Anticoagulants being held due to right abdominal rectus muscle hematoma. 13. Oral candidiasis. A. Resolving as of 10/02/2016. 14. Insomnia. A. Improved as of 10/01/2016. 15. Anxiety and depression. Improved as of 10/02/2016. 16. Anorexia. A. Improved as of 10/02/2016. PLAN: Continue present care. Continue PT.
[2016-10-02] MEDS: Melatonin 3 MG TAB PO SCH (20:04)
[2016-10-02] MEDS: Pravastatin Sodium 20 MG TAB PO SCH (20:05)
[2016-10-02] MEDS: Mirtazapine 15 MG TAB PO SCH (20:05)
[2016-10-03] MEDS: Mometasone/Formoterol 60 PUFF AER INH SCH ×2 (06:16→19:27)
[2016-10-03] MEDS: predniSONE 20 MG TAB PO SCH (08:03)
[2016-10-03] MEDS: Sotalol HCl 80 MG TAB PO SCH ×2 (08:05→21:05)
[2016-10-03] MEDS: Aspirin 81 mg Enteric Coated Tablet PO SCH (08:08)
[2016-10-03] MEDS: Saccharomyces boulardii 250 MG CAP PO SCH (08:08)
[2016-10-03] MEDS: Docusate 100 MG CAP PO SCH (08:09)
[2016-10-03] MEDS: guaiFENesin ER 600 MG TAB PO SCH ×2 (08:09→21:04)
[2016-10-03] MEDS: Multivit, Therapeutic 1 TAB PO SCH (08:09)
[2016-10-03] MEDS: Cefdinir 300 MG CAP PO SCH ×2 (08:09→21:04)
[2016-10-03] MEDS: Furosemide 40 MG TAB PO SCH (08:11)
[2016-10-03] MEDS: Nystatin 500,000 UNITS/5 ML UDCUP SSW SCH ×4 (08:12→21:06)
[2016-10-03] MEDS: Melatonin 3 MG TAB PO SCH (21:05)
[2016-10-03] MEDS: Pravastatin Sodium 20 MG TAB PO SCH (21:05)
[2016-10-03] MEDS: Mirtazapine 15 MG TAB PO SCH (21:05)
[2016-10-04] MEDS: Mometasone/Formoterol 60 PUFF AER INH SCH ×2 (06:02→18:01)
[2016-10-04] MEDS: predniSONE 20 MG TAB PO SCH (07:48)
[2016-10-04] MEDS: Nystatin 500,000 UNITS/5 ML UDCUP SSW SCH ×4 (09:03→20:28)
[2016-10-04] MEDS: Docusate 100 MG CAP PO SCH (09:06)
[2016-10-04] MEDS: Saccharomyces boulardii 250 MG CAP PO SCH (09:06)
[2016-10-04] MEDS: Multivit, Therapeutic 1 TAB PO SCH (09:06)
[2016-10-04] MEDS: Cefdinir 300 MG CAP PO SCH ×2 (09:06→20:28)
[2016-10-04] MEDS: Sotalol HCl 80 MG TAB PO SCH ×2 (09:07→20:29)
[2016-10-04] MEDS: guaiFENesin ER 600 MG TAB PO SCH ×2 (09:07→20:28)
[2016-10-04] MEDS: Aspirin 81 mg Enteric Coated Tablet PO SCH (09:07)
[2016-10-04] MEDS: Furosemide 40 MG TAB PO SCH (09:07)
--- NOTE | 2016-10-04 14:55 | PRG ---
DATE OF SERVICE: 10/04/2016 SUBJECTIVE: The patient said he is doing okay. He has had a little trouble with his swallowing. D ietitian had suggested a trial of a pureed diet. While in the hospital at [facility] he was seen by a speech therapist. I will ask them to recheck on him here. OBJECTIVE: The patient is lying in bed, looks comfortable, in no distress. His vital signs show a temperature of 98.3, pulse 72, respirations 22, O2 sat 95% on 2-1/2 liters, blood pressure 126/91. Lungs are clear except for some coarse rales at the bases that resolved with deeper inspiration. Th ere is no wheeze. Heart, regular rate. Extremities, no edema. ASSESSMENT: 1. Generalized weakness and deconditioning, followed two hospitalization first from 08/31/2016 to 09/06/2016 and the second from 09/17/2016 until 09/24/2016, both for acute exacerbations of his COPD with respiratory failure and atrial fibrillation. A. Gradual improvement as of 10/04/2016. 2. Recent hospitalizations from 09/17/2016 until 09/24/2016 for: A. Acute exacerbation of chronic obstructive pulmonary disease with respiratory failure with atelectasis of the right lower lobe from severe tracheobronchitis requiring bronchoscopy. B. Recent cardioversion from atrial fibrillation to normal sinus rhythm on 09/03/2016 and remai ns in sinus rhythm. C. Replacement of biventricular ICD pacemaker on 09/23/2016. D. Bronchoscopy on 09/20/2016 for right lower lobe atelectasis with removal of extensive pus co mpletely occluding the right lower lobe with no endobronchial lesion and culture growing Swapna. 3. Coronary artery disease. A. Status post stent placement, right coronary artery in 2002. B. Status post aortic single vessel aortic valve bypass with aortic valve replacement in 2009. C. Stable as of 09/30/2016. 4. Aortic stenosis. A. Status post aortic valve replacement with a bovina bioprosthetic valve in 2009. 5. Nonischemic cardiomyopathy. A. Required initial biventricular ICD in 2005, generator replaced 2010 and again generator repl aced on 09/23/2016. B. Echocardiogram on 09/01/2016 showed an LV ejection fraction of 50-55%, normal functioning ao rtic valve prosthesis, bioprosthetic. C. Mild diastolic congestive heart failure, clinically resolved as of 10/04/2016. 6. Severe chronic obstructive pulmonary disease complicated by chronic hypoxemia requiring suppleme ntal O2. A. Stable as of 10/04/2016. 7. Hypertension. 8. Hyperlipidemia. 9. Obstructive sleep apnea for which he uses a CPAP. 10. Constipation. 11. History of depression. A. Recently, the patient has opted to stop his antidepressant fluoxetine. 12. Atrial fibrillation, paroxysmal. A. Status post cardioversion on 09/03/2016. B. Remains in sinus rhythm as of 09/24/2016. C. Anticoagulants being held due to right abdominal rectus muscle hematoma. 13. Oral candidiasis. A. Resolved as of 10/04/2016. 14. Insomnia. A. Improved as of 10/01/2016. 15. Anxiety and depression. Improved as of 10/02/2016. 16. Anorexia. A. Improved as of 10/04/2016. 17. Dysphagia. PLAN: Will continue present care. Speech therapy consult. Continue physical therapy.
[2016-10-04] MEDS: Bisacodyl 10 MG SUPP PR PRN (19:40)
[2016-10-04] MEDS: Mag-Al Plus 1200 MG/1200 MG/120 MG/30 ML UDCUP PO PRN (19:40)
[2016-10-04] MEDS: Mirtazapine 15 MG TAB PO SCH (20:28)
[2016-10-04] MEDS: Pravastatin Sodium 20 MG TAB PO SCH (20:29)
[2016-10-04] MEDS: Melatonin 3 MG TAB PO SCH (20:29)
[2016-10-05] MEDS: Mometasone/Formoterol 60 PUFF AER INH SCH ×2 (05:55→20:02)
[2016-10-05] MEDS: Cefdinir 300 MG CAP PO SCH ×2 (08:39→20:05)
[2016-10-05] MEDS: predniSONE 20 MG TAB PO SCH (08:39)
[2016-10-05] MEDS: Furosemide 40 MG TAB PO SCH (08:39)
[2016-10-05] MEDS: Nystatin 500,000 UNITS/5 ML UDCUP SSW SCH ×2 (08:39→20:05)
[2016-10-05] MEDS: Aspirin 81 mg Enteric Coated Tablet PO SCH (08:40)
[2016-10-05] MEDS: Multivit, Therapeutic 1 TAB PO SCH (08:40)
[2016-10-05] MEDS: Sotalol HCl 80 MG TAB PO SCH ×2 (08:40→20:07)
[2016-10-05] MEDS: guaiFENesin ER 600 MG TAB PO SCH ×2 (08:41→20:05)
[2016-10-05] MEDS: Saccharomyces boulardii 250 MG CAP PO SCH (08:41)
[2016-10-05] MEDS: Docusate 100 MG CAP PO SCH (08:41)
[2016-10-05] MEDS: Pravastatin Sodium 20 MG TAB PO SCH (20:06)
[2016-10-05] MEDS: Melatonin 3 MG TAB PO SCH (20:06)
[2016-10-05] MEDS: Mirtazapine 15 MG TAB PO SCH (20:07)
[2016-10-06] MEDS: Mometasone/Formoterol 60 PUFF AER INH SCH ×2 (06:33→18:32)
[2016-10-06] MEDS: Nystatin 500,000 UNITS/5 ML UDCUP SSW SCH ×3 (07:27→13:05)
[2016-10-06] MEDS: predniSONE 20 MG TAB PO SCH (08:09)
[2016-10-06] MEDS: Aspirin 81 mg Enteric Coated Tablet PO SCH (08:12)
[2016-10-06] MEDS: Cefdinir 300 MG CAP PO SCH ×2 (08:12→20:05)
[2016-10-06] MEDS: Sotalol HCl 80 MG TAB PO SCH ×2 (08:13→20:06)
[2016-10-06] MEDS: Furosemide 40 MG TAB PO SCH (08:13)
[2016-10-06] MEDS: guaiFENesin ER 600 MG TAB PO SCH ×2 (08:13→20:05)
[2016-10-06] MEDS: Saccharomyces boulardii 250 MG CAP PO SCH (08:13)
[2016-10-06] MEDS: Docusate 100 MG CAP PO SCH (08:13)
[2016-10-06] MEDS: Multivit, Therapeutic 1 TAB PO SCH (08:13)
[2016-10-06] MEDS: Mirtazapine 30 MG Soltab PO SCH (20:07)
[2016-10-06] MEDS: Pravastatin Sodium 20 MG TAB PO SCH (20:07)
[2016-10-06] MEDS: Melatonin 3 MG TAB PO SCH (20:07)
--- NOTE | 2016-10-06 21:08 | PRG ---
DATE OF SERVICE: 10/06/2016 SUBJECTIVE: The patient said he is feeling little better today, thought he slept good. The patient says his breathing is doing better. The patient had refused to try pureed diet. He has been on me chanical soft diet and seems to do well with breakfast. He seems to have a little trouble with the lunch, but he tends to really hurried and eats large bites and very rapidly. The speech therapist i s working with him, but he oftentimes he sent her out, also times he will send the nurses out and al so send therapists out, at times he is very obstinate and angry. OBJECTIVE: GENERAL: The patient is lying in bed, appears comfortable in no distress. VIAL SIGNS: His temperature is 97, pulse 72, respirations 20, O2 sat 93% on 2 liters. Lungs: Clear. HEART: Regular rate. EXTREMITIES: No edema. ASSESSMENT: 1. Generalized weakness and deconditioning, followed two hospitalization first from 08/31/2016 to 09/06/2016 and the second from 09/17/2016 until 09/24/2016, both for acute exacerbations of his COPD with respiratory failure and atrial fibrillation. A. Very slow improvement; oftentimes refuses therapy as 10/06/2016. 2. Recent hospitalizations from 09/17/2016 until 09/24/2016 for: A. Acute exacerbation of chronic obstructive pulmonary disease with respiratory failure with atelectasis of the right lower lobe from severe tracheobronchitis requiring bronchoscopy. B. Recent cardioversion from atrial fibrillation to normal sinus rhythm on 09/03/2016 and remai ns in sinus rhythm. C. Replacement of biventricular ICD pacemaker on 09/23/2016. D. Bronchoscopy on 09/20/2016 for right lower lobe atelectasis with removal of extensive pus co mpletely occluding the right lower lobe with no endobronchial lesion and culture growing Swapna. 3. Coronary artery disease. A. Status post stent placement, right coronary artery in 2002. B. Status post aortic single vessel aortic valve bypass with aortic valve replacement in 2009. C. Stable as of 09/30/2016. 4. Aortic stenosis. A. Status post aortic valve replacement with a bovina bioprosthetic valve in 2009. 5. Nonischemic cardiomyopathy. A. Required initial biventricular ICD in 2005, generator replaced 2010 and again generator repl aced on 09/23/2016. B. Echocardiogram on 09/01/2016 showed an LV ejection fraction of 50-55%, normal functioning ao rtic valve prosthesis, bioprosthetic. C. Mild diastolic congestive heart failure, clinically resolved as of 10/04/2016. D. No evidence of acute congestive heart failure as of 10/06/2016. 6. Severe chronic obstructive pulmonary disease complicated by chronic hypoxemia requiring suppleme ntal O2. A. Recent mild increased density in the right middle lobe secondary to probable mild pneumonia that is improving as of 10/06/2016. 7. Hypertension. 8. Hyperlipidemia. 9. Obstructive sleep apnea for which he uses a CPAP. 10. Constipation. 11. History of depression. A. Recently, the patient has opted to stop his antidepressant fluoxetine. B. Increased depressive symptoms and periods of anger and agitation as of 10/06/2016. 12. Atrial fibrillation, paroxysmal. A. Status post cardioversion on 09/03/2016. B. Remains in sinus rhythm as of 09/24/2016. C. Anticoagulants being held due to right abdominal rectus muscle hematoma. 13. Oral candidiasis. A. Resolved as of 10/04/2016. 14. Insomnia. A. Improved as of 10/01/2016. 15. Anxiety and depression. Improved as of 10/02/2016. 16. Anorexia. A. Improved as of 10/04/2016. 17. Dysphagia. A. Improved, the patient to refuses to try any other modifications to his diet than the mechani samantha soft. PLAN: Encourage the patient to eat cautiously, slowly small bites and chew these well to setup righ t with eating. Encourage him to continue with physical therapy, will increase his mirtazapine to 30 mg that was started on 09/30/2016 to help some with depression, sleep and anxiousness. The patient is on the sixth day of antibiotics, we will continue these for another 4 and then discontinue and p robably do followup x-ray.
[2016-10-07] MEDS: Mometasone/Formoterol 60 PUFF AER INH SCH ×2 (05:22→18:26)
[2016-10-07] MEDS: predniSONE 20 MG TAB PO SCH (09:03)
[2016-10-07] MEDS: Furosemide 40 MG TAB PO SCH (09:04)
[2016-10-07] MEDS: Aspirin 81 mg Enteric Coated Tablet PO SCH (09:04)
[2016-10-07] MEDS: Sotalol HCl 80 MG TAB PO SCH ×2 (09:05→20:08)
[2016-10-07] MEDS: Docusate 100 MG CAP PO SCH (09:05)
[2016-10-07] MEDS: guaiFENesin ER 600 MG TAB PO SCH ×2 (09:05→20:08)
[2016-10-07] MEDS: Cefdinir 300 MG CAP PO SCH ×2 (09:05→20:08)
[2016-10-07] MEDS: Saccharomyces boulardii 250 MG CAP PO SCH (09:05)
[2016-10-07] MEDS: Multivit, Therapeutic 1 TAB PO SCH (09:05)
[2016-10-07] MEDS: Melatonin 3 MG TAB PO SCH (20:08)
[2016-10-07] MEDS: Mirtazapine 30 MG Soltab PO SCH (20:09)
[2016-10-07] MEDS: Pravastatin Sodium 20 MG TAB PO SCH (20:09)
[2016-10-08] MEDS: Mometasone/Formoterol 60 PUFF AER INH SCH ×2 (10:45→18:52)
[2016-10-08] MEDS: Cefdinir 300 MG CAP PO SCH ×2 (10:46→21:00)
[2016-10-08] MEDS: Sotalol HCl 80 MG TAB PO SCH ×2 (10:46→21:00)
[2016-10-08] MEDS: Multivit, Therapeutic 1 TAB PO SCH (10:47)
[2016-10-08] MEDS: predniSONE 20 MG TAB PO SCH (10:47)
[2016-10-08] MEDS: guaiFENesin ER 600 MG TAB PO SCH ×2 (10:47→21:00)
[2016-10-08] MEDS: Docusate 100 MG CAP PO SCH (10:47)
[2016-10-08] MEDS: Saccharomyces boulardii 250 MG CAP PO SCH (10:47)
[2016-10-08] MEDS: Furosemide 40 MG TAB PO SCH (10:48)
[2016-10-08] MEDS: Aspirin 81 mg Enteric Coated Tablet PO SCH (10:48)
--- NOTE | 2016-10-08 20:41 | PRG ---
DATE OF SERVICE: 10/08/2016 SUBJECTIVE: The patient is sitting up in his bedside chair and just eaten some of his breakfast. Juice campbell is coughing a lot after eating. He said his night was good, but he just can swallow good and get choked easily. He has been evaluated speech therapy while he was at [facility], he has b leandran evaluated here plus speech therapy, been recommended that he try a blended diet, but he has refu sed to do this. He tends to eat too big of bites and eat fast and will not set up straight. After a few minutes, he is coughing settle and he was breathing easier. He is working with [employer], but gets O2 sat drops with therapy even with supplemental O2. OBJECTIVE: VITAL SIGNS: Show a temperature of 98.5, pulse 71, respirations 20, O2 sat 92, blood pressure 123/8 3. LUNGS: Have some rhonchi on expiration, but this should improve after a few coughing spells. There is no pitched wheeze or rales. HEART: Regular rate. EXTREMITIES: No edema. ASSESSMENT: 1. Generalized weakness and deconditioning, followed two hospitalization first from 08/31/2016 to 09/06/2016 and the second from 09/17/2016 until 09/24/2016, both for acute exacerbations of his COPD with respiratory failure and atrial fibrillation. A. Very slow improvement. The severe chronic obstructive pulmonary disease and drop in his O2 sat even with supplemental O2 with exertion, has impeded progress as of 10/08/2016. 2. Recent hospitalizations from 09/17/2016 until 09/24/2016 for: A. Acute exacerbation of chronic obstructive pulmonary disease with respiratory failure with atelectasis of the right lower lobe from severe tracheobronchitis requiring bronchoscopy. B. Recent cardioversion from atrial fibrillation to normal sinus rhythm on 09/03/2016 and remai ns in sinus rhythm. C. Replacement of biventricular ICD pacemaker on 09/23/2016. D. Bronchoscopy on 09/20/2016 for right lower lobe atelectasis with removal of extensive pus co mpletely occluding the right lower lobe with no endobronchial lesion and culture growing Swapna. 3. Coronary artery disease. A. Status post stent placement, right coronary artery in 2002. B. Status post aortic single vessel aortic valve bypass with aortic valve replacement in 2009. C. Stable as of 09/30/2016. 4. Aortic stenosis. A. Status post aortic valve replacement with a bovina bioprosthetic valve in 2009. 5. Nonischemic cardiomyopathy. A. Required initial biventricular ICD in 2005, generator replaced 2010 and again generator repl aced on 09/23/2016. B. Echocardiogram on 09/01/2016 showed an LV ejection fraction of 50-55%, normal functioning ao rtic valve prosthesis, bioprosthetic. C. Mild diastolic congestive heart failure, clinically resolved as of 10/04/2016. D. No evidence of acute congestive heart failure as of 10/08/2016. 6. Severe chronic obstructive pulmonary disease complicated by chronic hypoxemia requiring suppleme ntal O2. A. Recent mild increased density in the right middle lobe secondary to probable mild pneumonia that is improving as of 10/08/2016. 7. Hypertension. 8. Hyperlipidemia. 9. Obstructive sleep apnea for which he uses a CPAP. 10. Constipation. 11. History of depression. A. Recently, the patient has opted to stop his antidepressant fluoxetine. B. Increased depressive symptoms and periods of anger and agitation as of 10/06/2016. 12. Atrial fibrillation, paroxysmal. A. Status post cardioversion on 09/03/2016. B. Remains in sinus rhythm as of 09/24/2016. C. Anticoagulants being held due to right abdominal rectus muscle hematoma. 13. Oral candidiasis. A. Resolved as of 10/04/2016. 14. Insomnia. A. Improved as of 10/01/2016. 15. Anxiety and depression. Improved as of 10/02/2016. 16. Anorexia. A. Improved as of 10/04/2016. 17. Dysphagia. A. Persistent difficulty with swallowing. The patient has been noncompliant with recommended diet and has not wanted to work with speech therapy. PLAN: Patient's , Maren, is here with him and had recommended that speech therapy revisit with him when he does, he needs to sit upright, smaller bite, chew thoroughly. He is presently on mechan ical soft diet and even with this he is need to be broken up and is smaller bits. He needs to take small bites to thoroughly and patient has been unwilling to even try a pureed diet. He will continu e physical therapy may be limited what he will be able to do due to his severe COPD and chronic hypo xemia.
[2016-10-08] MEDS: Melatonin 3 MG TAB PO SCH (21:00)
[2016-10-08] MEDS: Pravastatin Sodium 20 MG TAB PO SCH (21:00)
[2016-10-08] MEDS: Mirtazapine 30 MG Soltab PO SCH (21:01)
[2016-10-09] MEDS: Mometasone/Formoterol 60 PUFF AER INH SCH ×2 (07:54→19:39)
[2016-10-09] MEDS: Saccharomyces boulardii 250 MG CAP PO SCH (08:42)
[2016-10-09] MEDS: Furosemide 40 MG TAB PO SCH (08:42)
[2016-10-09] MEDS: Cefdinir 300 MG CAP PO SCH ×2 (08:42→20:20)
[2016-10-09] MEDS: Docusate 100 MG CAP PO SCH (08:42)
[2016-10-09] MEDS: Sotalol HCl 80 MG TAB PO SCH ×2 (08:43→20:22)
[2016-10-09] MEDS: Multivit, Therapeutic 1 TAB PO SCH (08:43)
[2016-10-09] MEDS: guaiFENesin ER 600 MG TAB PO SCH ×2 (08:43→20:20)
[2016-10-09] MEDS: predniSONE 20 MG TAB PO SCH (08:43)
[2016-10-09] MEDS: Aspirin 81 mg Enteric Coated Tablet PO SCH (08:43)
[2016-10-09] MEDS: Guaifenesin DM 100-10/5 ML UDCUP PO PRN ×2 (15:26→20:22)
[2016-10-09] MEDS: Mirtazapine 30 MG Soltab PO SCH (20:22)
[2016-10-09] MEDS: Melatonin 3 MG TAB PO SCH (20:22)
[2016-10-09] MEDS: Pravastatin Sodium 20 MG TAB PO SCH (20:22)
--- NOTE | 2016-10-09 20:54 | PRG ---
DATE OF SERVICE: 10/09/2016 SUBJECTIVE: The patient said he feels a little better today. He said he slept good. He did sit up for his meal and said he did not think he had much trouble with his eating. He got very tired and now is back in bed. He did ask for cough syrup. He said that he coughs even before he starts to e at. He had asked for some Robitussin, which he said does seem to help him. OBJECTIVE: The patient lying in bed, looks comfortable, in no distress. His temp is 98.5, pulse 72 , respirations 18, O2 sat 96% on 2 liters, blood pressure 121/76. His lungs are clear with fair paola ath sounds. Heart, regular rate. Extremities, no edema. ASSESSMENT: 1. Generalized weakness and deconditioning, followed two hospitalization first from 08/31/2016 to 09/06/2016 and the second from 09/17/2016 until 09/24/2016, both for acute exacerbations of his COPD with respiratory failure and atrial fibrillation. A. Very slow improvement. The severe chronic obstructive pulmonary disease with chronic hypoxe aurea results in drops in his O2 sat with any exercise even with the supplemental O2 as of 017. 2. Recent hospitalizations from 09/17/2016 until 09/24/2016 for: A. Acute exacerbation of chronic obstructive pulmonary disease with respiratory failure with atelectasis of the right lower lobe from severe tracheobronchitis requiring bronchoscopy. B. Recent cardioversion from atrial fibrillation to normal sinus rhythm on 09/03/2016 and remai ns in sinus rhythm. C. Replacement of biventricular ICD pacemaker on 09/23/2016. D. Bronchoscopy on 09/20/2016 for right lower lobe atelectasis with removal of extensive pus co mpletely occluding the right lower lobe with no endobronchial lesion and culture growing Swapna. 3. Coronary artery disease. A. Status post stent placement, right coronary artery in 2002. B. Status post aortic single vessel aortic valve bypass with aortic valve replacement in 2009. C. Stable as of 09/30/2016. 4. Aortic stenosis. A. Status post aortic valve replacement with a bovina bioprosthetic valve in 2009. 5. Nonischemic cardiomyopathy. A. Required initial biventricular ICD in 2005, generator replaced 2010 and again generator repl aced on 09/23/2016. B. Echocardiogram on 09/01/2016 showed an LV ejection fraction of 50-55%, normal functioning ao rtic valve prosthesis, bioprosthetic. C. Mild diastolic congestive heart failure, clinically resolved as of 10/04/2016. D. No evidence of acute congestive heart failure as of 10/08/2016. 6. Severe chronic obstructive pulmonary disease complicated by chronic hypoxemia requiring suppleme ntal O2. A. Recent mild increased density in the right middle lobe secondary to probable mild pneumonia that is improving as of 10/08/2016. 7. Hypertension. 8. Hyperlipidemia. 9. Obstructive sleep apnea for which he uses a CPAP. 10. Constipation. 11. Depression and anxiety. A. Recently, the patient has opted to stop his antidepressant fluoxetine. B. A little better as of 10/09/2016. 12. Atrial fibrillation, paroxysmal. A. Status post cardioversion on 09/03/2016. B. Remains in sinus rhythm as of 09/24/2016. C. Anticoagulants being held due to right abdominal rectus muscle hematoma. 13. Oral candidiasis. A. Resolved as of 10/04/2016. 14. Insomnia. A. Improved as of 10/01/2016. 15. Anorexia. A. Improved as of 10/04/2016. 16. Dysphagia. A. Persistent difficulty with swallowing. The patient has been noncompliant with recommended diet and has not wanted to work with speech therapy. B. A little improved with mechanical soft diet as of 10/09/2016. PLAN: Continue present care. Encourage the patient to sit up for all meals. Continue the mechani samantha soft diet. The patient would not try the pureed diet. Encourage small bites, well chewed and m ay follow each bite with a drink. Will order Robitussin-DM as needed for the cough.
[2016-10-10] MEDS: predniSONE 20 MG TAB PO SCH (07:35)
[2016-10-10] MEDS: Guaifenesin DM 100-10/5 ML UDCUP PO PRN ×4 (07:35→19:16)
[2016-10-10] MEDS: Mometasone/Formoterol 60 PUFF AER INH SCH ×2 (07:39→19:12)
[2016-10-10] MEDS: guaiFENesin ER 600 MG TAB PO SCH ×2 (09:05→20:40)
[2016-10-10] MEDS: Saccharomyces boulardii 250 MG CAP PO SCH (09:05)
[2016-10-10] MEDS: Aspirin 81 mg Enteric Coated Tablet PO SCH (09:05)
[2016-10-10] MEDS: Furosemide 40 MG TAB PO SCH (09:05)
[2016-10-10] MEDS: Docusate 100 MG CAP PO SCH (09:05)
[2016-10-10] MEDS: Cefdinir 300 MG CAP PO SCH ×2 (09:06→20:40)
[2016-10-10] MEDS: Sotalol HCl 80 MG TAB PO SCH ×2 (09:06→20:42)
[2016-10-10] MEDS: Multivit, Therapeutic 1 TAB PO SCH (09:06)
[2016-10-10] MEDS: Mirtazapine 30 MG Soltab PO SCH (20:41)
[2016-10-10] MEDS: Pravastatin Sodium 20 MG TAB PO SCH (20:41)
[2016-10-10] MEDS: Melatonin 3 MG TAB PO SCH (20:41)
[2016-10-10] MEDS: Mag-Al Plus 1200 MG/1200 MG/120 MG/30 ML UDCUP PO PRN (20:42)
[2016-10-11] MEDS: Mometasone/Formoterol 60 PUFF AER INH SCH ×2 (06:49→19:37)
[2016-10-11] MEDS: Saccharomyces boulardii 250 MG CAP PO SCH (08:25)
[2016-10-11] MEDS: Multivit, Therapeutic 1 TAB PO SCH (08:25)
[2016-10-11] MEDS: Sotalol HCl 80 MG TAB PO SCH ×2 (08:26→20:01)
[2016-10-11] MEDS: Aspirin 81 mg Enteric Coated Tablet PO SCH (08:28)
[2016-10-11] MEDS: guaiFENesin ER 600 MG TAB PO SCH ×2 (08:28→20:01)
[2016-10-11] MEDS: predniSONE 20 MG TAB PO SCH (08:29)
[2016-10-11] MEDS: Furosemide 40 MG TAB PO SCH (08:31)
[2016-10-11] MEDS: Docusate 100 MG CAP PO SCH (08:42)
[2016-10-11] MEDS: Guaifenesin DM 100-10/5 ML UDCUP PO PRN ×3 (08:43→20:54)
--- NOTE | 2016-10-11 14:44 | PRG ---
DATE OF SERVICE: 10/11/2016 SUBJECTIVE: The patient said he is doing okay this morning. He thought he rested pretty well. He says he is doing okay with his eating. He sits up in a chair for short periods, works with physical therapy short periods, but quit because of shortness of breath. OBJECTIVE: GENERAL: The patient lying in bed, appears comfortable, in no distress. VITAL SIGNS: His temperature 98.3, pulse 69, respirations 20, O2 sat 98% on 2 liters, blood pressur e 113/79. LUNGS: Clear except for coarse rales at the right base. HEART: Regular rate. EXTREMITIES: No edema. ASSESSMENT: 1. Generalized weakness and deconditioning, followed two hospitalization first from 08/31/2016 to 09/06/2016 and the second from 09/17/2016 until 09/24/2016, both for acute exacerbations of his COPD with respiratory failure and atrial fibrillation. A. Very slow improvement, still has some limitation of what he can do due to the hypoxemia whic h is worse with exertion as of 10/11/2016. 2. Recent hospitalizations from 09/17/2016 until 09/24/2016 for: A. Acute exacerbation of chronic obstructive pulmonary disease with respiratory failure with atelectasis of the right lower lobe from severe tracheobronchitis requiring bronchoscopy. B. Recent cardioversion from atrial fibrillation to normal sinus rhythm on 09/03/2016 and remai ns in sinus rhythm. C. Replacement of biventricular ICD pacemaker on 09/23/2016. D. Bronchoscopy on 09/20/2016 for right lower lobe atelectasis with removal of extensive pus co mpletely occluding the right lower lobe with no endobronchial lesion and culture growing Swapna. 3. Coronary artery disease. A. Status post stent placement, right coronary artery in 2002. B. Status post aortic single vessel aortic valve bypass with aortic valve replacement in 2009. C. Stable as of 09/30/2016. 4. Aortic stenosis. A. Status post aortic valve replacement with a bovina bioprosthetic valve in 2009. 5. Nonischemic cardiomyopathy. A. Required initial biventricular ICD in 2005, generator replaced 2010 and again generator repl aced on 09/23/2016. B. Echocardiogram on 09/01/2016 showed an LV ejection fraction of 50-55%, normal functioning ao rtic valve prosthesis, bioprosthetic. C. Mild diastolic congestive heart failure, clinically resolved as of 10/04/2016. D. No evidence of acute congestive heart failure as of 10/11/2016. 6. Severe chronic obstructive pulmonary disease complicated by chronic hypoxemia requiring suppleme ntal O2. A. Recent mild increased density in the right middle lobe secondary to probable mild pneumonia that is clinically resolving as of 10/11/2016. 7. Hypertension. 8. Hyperlipidemia. 9. Obstructive sleep apnea for which he uses a CPAP. 10. Constipation. 11. Depression and anxiety. A. Recently, the patient has opted to stop his antidepressant fluoxetine. B. A little better as of 10/11/2016. 12. Atrial fibrillation, paroxysmal. A. Status post cardioversion on 09/03/2016. B. Remains in sinus rhythm as of 09/24/2016. C. Anticoagulants being held due to right abdominal rectus muscle hematoma. 13. Oral candidiasis. A. Resolved as of 10/04/2016. 14. Insomnia. A. Controlled as of 10/11/2016. 15. Anorexia. A. Improved as of 10/04/2016. 16. Dysphagia. A. Persistent difficulty with swallowing. The patient has been noncompliant with recommended diet and has not wanted to work with speech therapy. B. Stable on mechanical soft diet and eating modification as of 10/11/2016. PLAN: Continue present care. Continue physical therapy.
[2016-10-11] MEDS: Melatonin 3 MG TAB PO SCH (20:01)
[2016-10-11] MEDS: Pravastatin Sodium 20 MG TAB PO SCH (20:01)
[2016-10-11] MEDS: Mirtazapine 30 MG Soltab PO SCH (20:01)
[2016-10-12] MEDS: Mometasone/Formoterol 60 PUFF AER INH SCH ×2 (06:24→19:30)
[2016-10-12] MEDS: predniSONE 20 MG TAB PO SCH (08:55)
[2016-10-12] MEDS: Furosemide 40 MG TAB PO SCH (09:26)
[2016-10-12] MEDS: Aspirin 81 mg Enteric Coated Tablet PO SCH (09:26)
[2016-10-12] MEDS: Docusate 100 MG CAP PO SCH (09:26)
[2016-10-12] MEDS: guaiFENesin ER 600 MG TAB PO SCH ×2 (09:26→20:03)
[2016-10-12] MEDS: Multivit, Therapeutic 1 TAB PO SCH (09:26)
[2016-10-12] MEDS: Sotalol HCl 80 MG TAB PO SCH ×2 (09:27→20:02)
[2016-10-12] MEDS: Saccharomyces boulardii 250 MG CAP PO SCH (09:27)
--- NOTE | 2016-10-12 14:59 | RAD ---
PORTABLE CHEST: Comparison: Cough. Comparison: 09-30-16, 09-17-16 FINDINGS: Continued linear density in the right mid lung field is seen which is more prominent than on the ayanna or studies. Hazy infiltrate was seen in the right midlung on 09-30-16 and this linear opacity may r epresent some residual stranding or atelectasis from the previously identified infiltrate. Some res idual infiltrate cannot be excluded. The left lung appears clear. Heart size upper normal with post-op sternotomy change and transvenous AICD leads again noted. IMPRESSION: Linear opacity in the right mid lung at the site of the previously noted right lung infiltrate. POS: [facility]
[2016-10-12] MEDS: Melatonin 3 MG TAB PO SCH (20:03)
[2016-10-12] MEDS: Mirtazapine 30 MG Soltab PO SCH (20:03)
[2016-10-12] MEDS: Pravastatin Sodium 20 MG TAB PO SCH (20:03)
[2016-10-13] MEDS: Mometasone/Formoterol 60 PUFF AER INH SCH ×2 (06:00→18:16)
[2016-10-13] MEDS: guaiFENesin ER 600 MG TAB PO SCH ×2 (09:08→20:59)
[2016-10-13] MEDS: Docusate 100 MG CAP PO SCH (09:08)
[2016-10-13] MEDS: Aspirin 81 mg Enteric Coated Tablet PO SCH (09:08)
[2016-10-13] MEDS: Furosemide 40 MG TAB PO SCH (09:08)
[2016-10-13] MEDS: Sotalol HCl 80 MG TAB PO SCH ×2 (09:09→21:00)
[2016-10-13] MEDS: Multivit, Therapeutic 1 TAB PO SCH (09:09)
[2016-10-13] MEDS: Saccharomyces boulardii 250 MG CAP PO SCH (09:09)
[2016-10-13] MEDS: Nystatin 500,000 UNITS/5 ML UDCUP SSW SCH ×4 (09:13→21:00)
[2016-10-13] MEDS: predniSONE 20 MG TAB PO SCH ×2 (10:36→10:37)
--- NOTE | 2016-10-13 10:53 | PRG ---
DATE OF SERVICE: 10/13/2016 SUBJECTIVE: The patient said yesterday after walking he got very short of breath. O2 saturations d ropped into the 60s after he sat down and had a couple of nebulization treatments his O2 sat gradual ly improved and his sense of shortness of breath improved. The patient said he is coughing more and is spitting up at times some yellowish phlegm. When he does exercise, he has a great deal of troub le with a drop in his O2 sat. He is asking if maybe increasing the steroids would help him some wit h his breathing. He said his swallowing has been doing good. OBJECTIVE: The patient lying in bed, has a productive cough, but does not appear in any acute distr ess. His temperature is 98.3, pulse 74, respirations 20, O2 sat 94% on 2 liters, blood pressure 132 /83. Lungs, anterior chest clear. Posterior chest, there are some occasional intermittent rale at the right base and on forced expiration there is some expiratory wheeze. Heart, regular rate. Ches t x-ray that was done yesterday following his episode of shortness of breath shows a linear opacity in the right mid lung at the site of the previous noted right lung infiltrate. This seems a little bit more prominent than previous studies. This was seen on x-ray from 09/30/2016. This could repre sent residuals, stranding or atelectasis from his previous area of pneumonia and atelectasis. ASSESSMENT: 1. Generalized weakness and deconditioning, followed two hospitalization first from 08/31/2016 to 09/06/2016 and the second from 09/17/2016 until 09/24/2016, both for acute exacerbations of his COPD with respiratory failure and atrial fibrillation. A. Continual progress has been hampered by his hypoxemia and shortness of breath with exertion as of 10/13/2016. 2. Recent hospitalizations from 09/17/2016 until 09/24/2016 for: A. Acute exacerbation of chronic obstructive pulmonary disease with respiratory failure with atelectasis of the right lower lobe from severe tracheobronchitis requiring bronchoscopy. B. Recent cardioversion from atrial fibrillation to normal sinus rhythm on 09/03/2016 and remai ns in sinus rhythm. C. Replacement of biventricular ICD pacemaker on 09/23/2016. D. Bronchoscopy on 09/20/2016 for right lower lobe atelectasis with removal of extensive pus co mpletely occluding the right lower lobe with no endobronchial lesion and culture growing Swapna. 3. Coronary artery disease. A. Status post stent placement, right coronary artery in 2002. B. Status post aortic single vessel aortic valve bypass with aortic valve replacement in 2009. C. Stable as of 10/13/2016. 4. Aortic stenosis. A. Status post aortic valve replacement with a bovina bioprosthetic valve in 2009. 5. Nonischemic cardiomyopathy. A. Required initial biventricular ICD in 2005, generator replaced 2010 and again generator repl aced on 09/23/2016. B. Echocardiogram on 09/01/2016 showed an LV ejection fraction of 50-55%, normal functioning ao rtic valve prosthesis, bioprosthetic. C. Mild diastolic congestive heart failure, clinically resolved as of 10/04/2016. D. No evidence of acute congestive heart failure as of 10/13/2016. 6. Severe chronic obstructive pulmonary disease complicated by chronic hypoxemia requiring suppleme ntal O2. A. Complicated by some increased cough, sputum production and shortness of breath from a mild a cute exacerbation of his chronic obstructive pulmonary disease as of 10/13/2016. B. Complicated by chronic linear streaking or opacification right middle lung, that I suspect r epresents either scarring and/or atelectasis as of 10/13/2016. 7. Hypertension. 8. Hyperlipidemia. 9. Obstructive sleep apnea for which he uses a CPAP. 10. Constipation. 11. Depression and anxiety. A. Recently, the patient has opted to stop his antidepressant fluoxetine. B. A little better as of 10/13/2016. 12. Atrial fibrillation, paroxysmal. A. Status post cardioversion on 09/03/2016. B. Remains in sinus rhythm as of 09/24/2016. C. Anticoagulants being held due to right abdominal rectus muscle hematoma. 13. Oral candidiasis. A. Resolved as of 10/04/2016. 14. Insomnia. A. Controlled as of 10/11/2016. 15. Anorexia. A. Improved as of 10/04/2016. 16. Dysphagia. A. Persistent difficulty with swallowing. The patient has been noncompliant with recommended diet and has not wanted to work with speech therapy. B. Improved as of 10/13/2016. We will continue the mechanical soft diet and diet modifications . PLAN: We will continue the patient's neb treatments. Continue his supplemental O2. We will place the patient on incentive spirometry to try to help with the atelectasis. We will increase his predn isone to 40 mg a day and then gradually taper him back to his [address] him on Levaquin and also place him on Mycostatin oral suspension to try to prevent yeast infection in the mouth. Ph ysical therapy will have to be limited due to his shortness of breath.
[2016-10-13] MEDS ORDERED: Sodium Chloride Irrig Solution 250 ML BOT ONE (12:25)
[2016-10-13] MEDS: Pravastatin Sodium 20 MG TAB PO SCH (20:59)
[2016-10-13] MEDS: Mirtazapine 30 MG Soltab PO SCH (21:00)
[2016-10-13] MEDS: Melatonin 3 MG TAB PO SCH (21:00)
[2016-10-14] MEDS: Mometasone/Formoterol 60 PUFF AER INH SCH ×2 (07:20→19:33)
[2016-10-14] MEDS: Aspirin 81 mg Enteric Coated Tablet PO SCH (07:57)
[2016-10-14] MEDS: Multivit, Therapeutic 1 TAB PO SCH (07:57)
[2016-10-14] MEDS: predniSONE 20 MG TAB PO SCH (07:57)
[2016-10-14] MEDS: Saccharomyces boulardii 250 MG CAP PO SCH (07:58)
[2016-10-14] MEDS: guaiFENesin ER 600 MG TAB PO SCH ×2 (07:58→20:35)
[2016-10-14] MEDS: Sotalol HCl 80 MG TAB PO SCH ×2 (07:58→20:35)
[2016-10-14] MEDS: Furosemide 40 MG TAB PO SCH (07:58)
[2016-10-14] MEDS: Docusate 100 MG CAP PO SCH (07:59)
[2016-10-14] MEDS: Nystatin 500,000 UNITS/5 ML UDCUP SSW SCH ×4 (09:00→20:36)
[2016-10-14] MEDS: Mag-Al Plus 1200 MG/1200 MG/120 MG/30 ML UDCUP PO PRN (13:26)
[2016-10-14] MEDS: Mirtazapine 30 MG Soltab PO SCH (20:36)
[2016-10-14] MEDS: Pravastatin Sodium 20 MG TAB PO SCH (20:36)
[2016-10-14] MEDS: Melatonin 3 MG TAB PO SCH (20:36)
[2016-10-15] MEDS: Mometasone/Formoterol 60 PUFF AER INH SCH ×2 (06:04→18:21)
[2016-10-15] MEDS: Saccharomyces boulardii 250 MG CAP PO SCH (08:07)
[2016-10-15] MEDS: Multivit, Therapeutic 1 TAB PO SCH (08:07)
[2016-10-15] MEDS: predniSONE 20 MG TAB PO SCH (08:07)
[2016-10-15] MEDS: Aspirin 81 mg Enteric Coated Tablet PO SCH (08:07)
[2016-10-15] MEDS: guaiFENesin ER 600 MG TAB PO SCH ×2 (08:07→21:17)
[2016-10-15] MEDS: Furosemide 40 MG TAB PO SCH (08:07)
[2016-10-15] MEDS: Nystatin 500,000 UNITS/5 ML UDCUP SSW SCH ×4 (08:08→21:17)
[2016-10-15] MEDS: Docusate 100 MG CAP PO SCH (08:11)
[2016-10-15] MEDS: Sotalol HCl 80 MG TAB PO SCH ×2 (08:12→21:17)
--- NOTE | 2016-10-15 10:48 | PRG ---
DATE OF SERVICE: 10/15/2016 SUBJECTIVE: The patient said he was able to work a little bit with physical therapy today. He said he is still coughing some. He thinks breathing might be a little better. OBJECTIVE: The patient is sitting up in a bedside chair. He is eating his egg and oatmeal. He huy d he had no trouble with this. His vital signs shows a temperature 98.7, pulse 74, blood pressure 1 49/74, respirations 22, O2 sat 95% on 3.5 liters. His lungs have moderate breath sounds. There is an occasional very mild coarse rale at the base that clears with deeper inspiration. These coarse ra les were located at the bases. On deep inspiration they resolve. There are no wheezes. Heart, reg ular rate. Extremities, no edema. ASSESSMENT: 1. Generalized weakness and deconditioning, followed two hospitalization first from 08/31/2016 to 09/06/2016 and the second from 09/17/2016 until 09/24/2016, both for acute exacerbations of his COPD with respiratory failure and atrial fibrillation. A. Continual progress has been hampered by his hypoxemia and shortness of breath with exertion as of 10/13/2016. B. Some mild improvement as of 10/15/2016. 2. Recent hospitalizations from 09/17/2016 until 09/24/2016 for: A. Acute exacerbation of chronic obstructive pulmonary disease with respiratory failure with atelectasis of the right lower lobe from severe tracheobronchitis requiring bronchoscopy. B. Recent cardioversion from atrial fibrillation to normal sinus rhythm on 09/03/2016 and remai ns in sinus rhythm. C. Replacement of biventricular ICD pacemaker on 09/23/2016. D. Bronchoscopy on 09/20/2016 for right lower lobe atelectasis with removal of extensive pus co mpletely occluding the right lower lobe with no endobronchial lesion and culture growing Swapna. 3. Coronary artery disease. A. Status post stent placement, right coronary artery in 2002. B. Status post aortic single vessel aortic valve bypass with aortic valve replacement in 2009. C. Stable as of 10/13/2016. 4. Aortic stenosis. A. Status post aortic valve replacement with a bovina bioprosthetic valve in 2009. 5. Nonischemic cardiomyopathy. A. Required initial biventricular ICD in 2005, generator replaced 2010 and again generator repl aced on 09/23/2016. B. Echocardiogram on 09/01/2016 showed an LV ejection fraction of 50-55%, normal functioning ao rtic valve prosthesis, bioprosthetic. C. Mild diastolic congestive heart failure, clinically resolved as of 10/04/2016. D. No evidence of acute congestive heart failure as of 10/15/2016. 6. Severe chronic obstructive pulmonary disease complicated by chronic hypoxemia requiring suppleme ntal O2. A. Complicated by some increased cough, sputum production and shortness of breath from a mild a cute exacerbation of his chronic obstructive pulmonary disease as of 10/13/2016. 1. Improved as of 10/15/2016. B. Complicated by chronic linear streaking or opacification right middle lung, that I suspect r epresents either scarring and/or atelectasis as of 10/13/2016. 7. Hypertension. 8. Hyperlipidemia. 9. Obstructive sleep apnea for which he uses a CPAP. 10. Constipation. 11. Depression and anxiety. A. Recently, the patient has opted to stop his antidepressant fluoxetine. B. A little better as of 10/13/2016. 12. Atrial fibrillation, paroxysmal. A. Status post cardioversion on 09/03/2016. B. Remains in sinus rhythm as of 09/24/2016. C. Anticoagulants being held due to right abdominal rectus muscle hematoma. 13. Oral candidiasis. A. Resolved as of 10/04/2016. 14. Insomnia. A. Controlled as of 10/11/2016. 15. Anorexia. A. Improved as of 10/04/2016. 16. Dysphagia. A. Persistent difficulty with swallowing. The patient has been noncompliant with recommended diet and has not wanted to work with speech therapy. B. Improved as of 10/15/2016. PLAN: Continue present care. Continue physical therapy within his tolerance. Continue neb treatme nts.
[2016-10-15] MEDS: Guaifenesin DM 100-10/5 ML UDCUP PO PRN (13:49)
[2016-10-15] MEDS: Mirtazapine 30 MG Soltab PO SCH (21:17)
[2016-10-15] MEDS: Pravastatin Sodium 20 MG TAB PO SCH (21:17)
[2016-10-15] MEDS: Melatonin 3 MG TAB PO SCH (21:17)
[2016-10-16] MEDS: Mometasone/Formoterol 60 PUFF AER INH SCH ×2 (08:04→18:20)
[2016-10-16] MEDS: Sotalol HCl 80 MG TAB PO SCH ×2 (08:09→21:04)
[2016-10-16] MEDS: Saccharomyces boulardii 250 MG CAP PO SCH (08:09)
[2016-10-16] MEDS: Nystatin 500,000 UNITS/5 ML UDCUP SSW SCH ×4 (08:09→21:03)
[2016-10-16] MEDS: predniSONE 20 MG TAB PO SCH (08:10)
[2016-10-16] MEDS: guaiFENesin ER 600 MG TAB PO SCH ×2 (08:10→21:03)
[2016-10-16] MEDS: Multivit, Therapeutic 1 TAB PO SCH (08:10)
[2016-10-16] MEDS: Furosemide 40 MG TAB PO SCH (08:10)
[2016-10-16] MEDS: Docusate 100 MG CAP PO SCH (08:10)
[2016-10-16] MEDS: Aspirin 81 mg Enteric Coated Tablet PO SCH (08:10)
[2016-10-16] MEDS ORDERED: predniSONE 20 MG TAB PO SCH (09:45)
--- NOTE | 2016-10-16 13:52 | PRG ---
DATE OF SERVICE: 10/16/2016. SUBJECTIVE: The patient said he did okay during the night. This morning, he had a little trouble w ith eating his pancake, said he got a little choke, but he thinks he ate too fast, said he is still coughing some is spitting up a little yellowish phlegm. OBJECTIVE: GENERAL: The patient is sitting up in a bedside chair, he is alert and appears in no distress. VITAL SIGNS: His temperature 97.8, pulse 69, respirations 20, O2 saturations 98% on 2 liters, blood pressure 132/76. LUNGS: Moderate breath sounds anterior. CHEST: Clear. The patient has very minimal faint wheezes on forced expiration. HEART: Regular rate. EXTREMITIES: No edema. ASSESSMENT: 1. Generalized weakness and deconditioning, followed two hospitalization first from 08/31/2016 to 09/06/2016 and the second from 09/17/2016 until 09/24/2016, both for acute exacerbations of his COPD with respiratory failure and atrial fibrillation. A. Continual progress has been hampered by his hypoxemia and shortness of breath with exertion as of 10/13/2016. 1. Gradual improvement as of 10/16/2016. B. Some mild improvement as of 10/16/2016. 2. Recent hospitalizations from 09/17/2016 until 09/24/2016 for: A. Acute exacerbation of chronic obstructive pulmonary disease with respiratory failure with atelectasis of the right lower lobe from severe tracheobronchitis requiring bronchoscopy. B. Recent cardioversion from atrial fibrillation to normal sinus rhythm on 09/03/2016 and remai ns in sinus rhythm. C. Replacement of biventricular ICD pacemaker on 09/23/2016. D. Bronchoscopy on 09/20/2016 for right lower lobe atelectasis with removal of extensive pus co mpletely occluding the right lower lobe with no endobronchial lesion and culture growing Swapna. 3. Coronary artery disease. A. Status post stent placement, right coronary artery in 2002. B. Status post aortic single vessel aortic valve bypass with aortic valve replacement in 2009. C. Stable as of 10/13/2016. 4. Aortic stenosis. A. Status post aortic valve replacement with a bovina bioprosthetic valve in 2009. 5. Nonischemic cardiomyopathy. A. Required initial biventricular ICD in 2005, generator replaced 2010 and again generator repl aced on 09/23/2016. B. Echocardiogram on 09/01/2016 showed an LV ejection fraction of 50-55%, normal functioning ao rtic valve prosthesis, bioprosthetic. C. Mild diastolic congestive heart failure, clinically resolved as of 10/04/2016. D. No evidence of acute congestive heart failure as of 10/16/2016. 6. Severe chronic obstructive pulmonary disease complicated by chronic hypoxemia requiring suppleme ntal O2. A. Complicated by some increased cough, sputum production and shortness of breath from a mild a cute exacerbation of his chronic obstructive pulmonary disease as of 10/13/2016. 1. Improved as of 10/15/2016. B. Complicated by chronic linear streaking or opacification right middle lung, that I suspect r epresents either scarring and/or atelectasis as of 10/13/2016. 7. Hypertension. 8. Hyperlipidemia. 9. Obstructive sleep apnea for which he uses a CPAP. 10. Constipation. 11. Depression and anxiety. A. Recently, the patient has opted to stop his antidepressant fluoxetine. B. A little better as of 10/13/2016. 12. Atrial fibrillation, paroxysmal. A. Status post cardioversion on 09/03/2016. B. Remains in sinus rhythm as of 09/24/2016. C. Anticoagulants being held due to right abdominal rectus muscle hematoma. 13. Oral candidiasis. A. Resolved as of 10/04/2016. 14. Insomnia. A. Controlled as of 10/11/2016. 15. Anorexia. A. Improved as of 10/04/2016. 16. Dysphagia. A. Persistent difficulty with swallowing. The patient has been noncompliant with recommended diet and has not wanted to work with speech therapy. B. Improved, but still has intermittent trouble even on the mechanical soft diet, usually becau se he gets a little bit of hurry with his eating as of 10/16/2016. PLAN: Continue present care. We will reduce prednisone to 20 mg a day and continue PT within his c apabilities.
[2016-10-16] MEDS: Mirtazapine 30 MG Soltab PO SCH (21:03)
[2016-10-16] MEDS: Melatonin 3 MG TAB PO SCH (21:03)
[2016-10-16] MEDS: Pravastatin Sodium 20 MG TAB PO SCH (21:04)
[2016-10-17] MEDS: Mometasone/Formoterol 60 PUFF AER INH SCH ×2 (08:02→18:06)
[2016-10-17] MEDS: Sotalol HCl 80 MG TAB PO SCH ×2 (08:08→20:38)
[2016-10-17] MEDS: Saccharomyces boulardii 250 MG CAP PO SCH (08:08)
[2016-10-17] MEDS: Furosemide 40 MG TAB PO SCH (08:09)
[2016-10-17] MEDS: Multivit, Therapeutic 1 TAB PO SCH (08:09)
[2016-10-17] MEDS: predniSONE 20 MG TAB PO SCH (08:09)
[2016-10-17] MEDS: Docusate 100 MG CAP PO SCH (08:09)
[2016-10-17] MEDS: Aspirin 81 mg Enteric Coated Tablet PO SCH (08:09)
[2016-10-17] MEDS: guaiFENesin ER 600 MG TAB PO SCH ×2 (08:09→20:37)
[2016-10-17] MEDS: Nystatin 500,000 UNITS/5 ML UDCUP SSW SCH ×4 (08:10→20:38)
[2016-10-17] MEDS: Mirtazapine 30 MG Soltab PO SCH (20:37)
[2016-10-17] MEDS: Pravastatin Sodium 20 MG TAB PO SCH (20:37)
[2016-10-17] MEDS: Melatonin 3 MG TAB PO SCH (20:38)
[2016-10-18] MEDS: Mometasone/Formoterol 60 PUFF AER INH SCH ×2 (06:07→17:57)
[2016-10-18] MEDS: Furosemide 40 MG TAB PO SCH (08:32)
[2016-10-18] MEDS: Docusate 100 MG CAP PO SCH (08:32)
[2016-10-18] MEDS: predniSONE 20 MG TAB PO SCH (08:32)
[2016-10-18] MEDS: guaiFENesin ER 600 MG TAB PO SCH ×2 (08:32→20:02)
[2016-10-18] MEDS: Nystatin 500,000 UNITS/5 ML UDCUP SSW SCH ×4 (08:32→20:01)
[2016-10-18] MEDS: Aspirin 81 mg Enteric Coated Tablet PO SCH (08:32)
[2016-10-18] MEDS: Multivit, Therapeutic 1 TAB PO SCH (08:32)
[2016-10-18] MEDS: Saccharomyces boulardii 250 MG CAP PO SCH (08:32)
[2016-10-18] MEDS: Sotalol HCl 80 MG TAB PO SCH ×2 (08:33→20:01)
--- NOTE | 2016-10-18 18:06 | PRG ---
DATE OF SERVICE: 10/18/2016 SUBJECTIVE: The patient said he had a pretty good night. This morning he is feeling good. He said he still has a cough, usually a little worse in the morning. He says some days he can participate reasonably well with physical therapy. OBJECTIVE: The patient lying in bed, appears very comfortable and in no distress. His vital signs shows a temperature of 98.9, pulse 64, respirations 20, O2 sat 95% on 3 liters. His lungs have mode rate breath sounds that are clear. Heart, regular rate. Extremities, no edema. ASSESSMENT: 1. Generalized weakness and deconditioning, followed two hospitalization first from 08/31/2016 to 09/06/2016 and the second from 09/17/2016 until 09/24/2016, both for acute exacerbations of his COPD with respiratory failure and atrial fibrillation. A. Continual progress has been hampered by his hypoxemia and shortness of breath with exertion as of 10/13/2016. 1. Gradual improvement as of 10/18/2016. 2. Recent hospitalizations from 09/17/2016 until 09/24/2016 for: A. Acute exacerbation of chronic obstructive pulmonary disease with respiratory failure with atelectasis of the right lower lobe from severe tracheobronchitis requiring bronchoscopy. B. Recent cardioversion from atrial fibrillation to normal sinus rhythm on 09/03/2016 and remai ns in sinus rhythm. C. Replacement of biventricular ICD pacemaker on 09/23/2016. D. Bronchoscopy on 09/20/2016 for right lower lobe atelectasis with removal of extensive pus co mpletely occluding the right lower lobe with no endobronchial lesion and culture growing Swapna. 3. Coronary artery disease. A. Status post stent placement, right coronary artery in 2002. B. Status post aortic single vessel aortic valve bypass with aortic valve replacement in 2009. C. Stable as of 10/13/2016. 4. Aortic stenosis. A. Status post aortic valve replacement with a bovina bioprosthetic valve in 2009. 5. Nonischemic cardiomyopathy. A. Required initial biventricular ICD in 2005, generator replaced 2010 and again generator repl aced on 09/23/2016. B. Echocardiogram on 09/01/2016 showed an LV ejection fraction of 50-55%, normal functioning ao rtic valve prosthesis, bioprosthetic. C. Mild diastolic congestive heart failure, clinically resolved as of 10/04/2016. D. No evidence of acute congestive heart failure as of 10/16/2016. 6. Severe chronic obstructive pulmonary disease complicated by chronic hypoxemia requiring suppleme ntal O2. A. Complicated by some increased cough, sputum production and shortness of breath from a mild a cute exacerbation of his chronic obstructive pulmonary disease as of 10/13/2016. 1. Improved as of 10/18/2016. B. Complicated by chronic linear streaking or opacification right middle lung, that I suspect represents either scarring and/or atelectasis as of 10/13/2016. 7. Hypertension. 8. Hyperlipidemia. 9. Obstructive sleep apnea for which he uses a CPAP. 10. Constipation. 11. Depression and anxiety. A. Recently, the patient has opted to stop his antidepressant fluoxetine. B. A little better as of 10/13/2016. 12. Atrial fibrillation, paroxysmal. A. Status post cardioversion on 09/03/2016. B. Remains in sinus rhythm as of 09/24/2016. C. Anticoagulants being held due to right abdominal rectus muscle hematoma. 13. Oral candidiasis. A. Resolved as of 10/04/2016. 14. Insomnia. A. Controlled as of 10/11/2016. 15. Anorexia. A. Improved as of 10/18/2016. 16. Dysphagia. A. Persistent difficulty with swallowing. The patient has been noncompliant with recommended diet and has not wanted to work with speech therapy. B. Improved, but still has intermittent trouble even on the mechanical soft diet, usually becau se he gets a little bit of hurry with his eating as of 10/18/2016. PLAN: Continue present care. Continue the present dose of prednisone and antibiotics. Continue ph ysical therapy within his tolerance.
[2016-10-18] MEDS: Melatonin 3 MG TAB PO SCH (20:01)
[2016-10-18] MEDS: Pravastatin Sodium 20 MG TAB PO SCH (20:01)
[2016-10-18] MEDS: Mirtazapine 30 MG Soltab PO SCH (20:03)
[2016-10-19] MEDS: Mometasone/Formoterol 60 PUFF AER INH SCH ×2 (05:45→19:08)
[2016-10-19] MEDS: Sotalol HCl 80 MG TAB PO SCH ×2 (09:05→20:15)
[2016-10-19] MEDS: Docusate 100 MG CAP PO SCH (09:05)
[2016-10-19] MEDS: Saccharomyces boulardii 250 MG CAP PO SCH (09:05)
[2016-10-19] MEDS: Aspirin 81 mg Enteric Coated Tablet PO SCH (09:05)
[2016-10-19] MEDS: guaiFENesin ER 600 MG TAB PO SCH ×2 (09:05→20:14)
[2016-10-19] MEDS: Furosemide 40 MG TAB PO SCH (09:05)
[2016-10-19] MEDS: predniSONE 20 MG TAB PO SCH (09:06)
[2016-10-19] MEDS: Multivit, Therapeutic 1 TAB PO SCH (09:06)
[2016-10-19] MEDS: Nystatin 500,000 UNITS/5 ML UDCUP SSW SCH ×4 (09:06→20:14)
[2016-10-19] MEDS: Mirtazapine 30 MG Soltab PO SCH (20:14)
[2016-10-19] MEDS: Pravastatin Sodium 20 MG TAB PO SCH (20:14)
[2016-10-19] MEDS: Melatonin 3 MG TAB PO SCH (20:14)
[2016-10-20] MEDS: Mometasone/Formoterol 60 PUFF AER INH SCH ×2 (06:07→18:05)
[2016-10-20] MEDS: predniSONE 20 MG TAB PO SCH (08:49)
[2016-10-20] MEDS: Aspirin 81 mg Enteric Coated Tablet PO SCH (08:49)
[2016-10-20] MEDS: Multivit, Therapeutic 1 TAB PO SCH (08:50)
[2016-10-20] MEDS: guaiFENesin ER 600 MG TAB PO SCH ×2 (08:50→20:12)
[2016-10-20] MEDS: Furosemide 40 MG TAB PO SCH (08:50)
[2016-10-20] MEDS: Saccharomyces boulardii 250 MG CAP PO SCH (08:51)
[2016-10-20] MEDS: Sotalol HCl 80 MG TAB PO SCH ×2 (08:51→20:11)
[2016-10-20] MEDS: Nystatin 500,000 UNITS/5 ML UDCUP SSW SCH ×4 (08:51→20:12)
[2016-10-20] MEDS: Docusate 100 MG CAP PO SCH (08:58)
--- NOTE | 2016-10-20 09:22 | PRG ---
DATE OF SERVICE: 10/20/2016 SUBJECTIVE: The patient says he is feeling better. He had a good night. Yesterday his swallowing went well as long as he takes his time. He said therapy went pretty well. He was able to walk some . OBJECTIVE: The patient is lying in bed, looks very calm and appears in no distress. His temperatur e is 97.7, pulse 70, respirations 18, O2 sat 96% on 2-1/2 liters, blood pressure 107/70. His lungs are clear except for some minimal wheeze on expiration. Overall, the lungs sound much better. Hear t, regular rate. Extremities, no edema. ASSESSMENT: 1. Generalized weakness and deconditioning, followed two hospitalization first from 08/31/2016 to 09/06/2016 and the second from 09/17/2016 until 09/24/2016, both for acute exacerbations of his COPD with respiratory failure and atrial fibrillation. A. Continual progress has been hampered by his hypoxemia and shortness of breath with exertion as of 10/13/2016. 1. Gradual improvement as of 10/20/2016. 2. Recent hospitalizations from 09/17/2016 until 09/24/2016 for: A. Acute exacerbation of chronic obstructive pulmonary disease with respiratory failure with atelectasis of the right lower lobe from severe tracheobronchitis requiring bronchoscopy. B. Recent cardioversion from atrial fibrillation to normal sinus rhythm on 09/03/2016 and remai ns in sinus rhythm. C. Replacement of biventricular ICD pacemaker on 09/23/2016. D. Bronchoscopy on 09/20/2016 for right lower lobe atelectasis with removal of extensive pus co mpletely occluding the right lower lobe with no endobronchial lesion and culture growing Swapna. 3. Coronary artery disease. A. Status post stent placement, right coronary artery in 2002. B. Status post aortic single vessel aortic valve bypass with aortic valve replacement in 2009. C. Stable as of 10/20/2016. 4. Aortic stenosis. A. Status post aortic valve replacement with a bovina bioprosthetic valve in 2009. 5. Nonischemic cardiomyopathy. A. Required initial biventricular ICD in 2005, generator replaced 2010 and again generator repl aced on 09/23/2016. B. Echocardiogram on 09/01/2016 showed an LV ejection fraction of 50-55%, normal functioning ao rtic valve prosthesis, bioprosthetic. C. Mild diastolic congestive heart failure, clinically resolved as of 10/04/2016. D. No evidence of acute congestive heart failure as of 10/20/2016. 6. Severe chronic obstructive pulmonary disease complicated by chronic hypoxemia requiring suppleme ntal O2. A. Complicated by some increased cough, sputum production and shortness of breath from a mild a cute exacerbation of his chronic obstructive pulmonary disease as of 10/13/2016. 1. Improved as of 10/20/2016. B. Complicated by chronic linear streaking or opacification right middle lung, that I suspect represents either scarring and/or atelectasis as of 10/13/2016. 7. Hypertension. 8. Hyperlipidemia. 9. Obstructive sleep apnea for which he uses a CPAP. 10. Constipation. 11. Depression and anxiety. A. Improved as of 10/20/2016. 12. Atrial fibrillation, paroxysmal. A. Status post cardioversion on 09/03/2016. B. Remains in sinus rhythm as of 09/24/2016. C. Anticoagulants being held due to right abdominal rectus muscle hematoma. 13. Oral candidiasis. A. Resolved as of 10/04/2016. 14. Insomnia. A. Controlled as of 10/11/2016. 15. Anorexia. A. Improved as of 10/18/2016. 16. Dysphagia. A. Persistent difficulty with swallowing. The patient has been noncompliant with recommended diet and has not wanted to work with speech therapy. B. Improved as of 10/20/2016. PLAN: Continue physical therapy. Continue the antibiotics. Continue the steroids. Caution the pa tient to be cautious with his eating and eat small bites and not to get in a hurry and sit upright.
[2016-10-20] MEDS: Melatonin 3 MG TAB PO SCH (20:11)
[2016-10-20] MEDS: Mirtazapine 30 MG Soltab PO SCH (20:11)
[2016-10-20] MEDS: Pravastatin Sodium 20 MG TAB PO SCH (20:11)
[2016-10-21] MEDS: Mometasone/Formoterol 60 PUFF AER INH SCH ×2 (06:02→18:04)
[2016-10-21] MEDS: Saccharomyces boulardii 250 MG CAP PO SCH (08:11)
[2016-10-21] MEDS: Aspirin 81 mg Enteric Coated Tablet PO SCH (08:11)
[2016-10-21] MEDS: Nystatin 500,000 UNITS/5 ML UDCUP SSW SCH ×4 (08:11→20:46)
[2016-10-21] MEDS: Sotalol HCl 80 MG TAB PO SCH ×2 (08:11→20:45)
[2016-10-21] MEDS: Furosemide 40 MG TAB PO SCH (08:12)
[2016-10-21] MEDS: guaiFENesin ER 600 MG TAB PO SCH ×2 (08:12→20:44)
[2016-10-21] MEDS: predniSONE 20 MG TAB PO SCH (08:12)
[2016-10-21] MEDS: Docusate 100 MG CAP PO SCH (08:12)
[2016-10-21] MEDS: Multivit, Therapeutic 1 TAB PO SCH (08:13)
[2016-10-21] MEDS: Pravastatin Sodium 20 MG TAB PO SCH (20:45)
[2016-10-21] MEDS: Melatonin 3 MG TAB PO SCH (20:46)
[2016-10-21] MEDS: Mirtazapine 30 MG Soltab PO SCH (20:46)
[2016-10-22] MEDS: Mometasone/Formoterol 60 PUFF AER INH SCH ×2 (06:08→18:52)
[2016-10-22] MEDS: Nystatin 500,000 UNITS/5 ML UDCUP SSW SCH ×4 (08:36→20:34)
[2016-10-22] MEDS: guaiFENesin ER 600 MG TAB PO SCH ×2 (08:37→20:34)
[2016-10-22] MEDS: Docusate 100 MG CAP PO SCH (08:37)
[2016-10-22] MEDS: Sotalol HCl 80 MG TAB PO SCH ×2 (08:37→20:34)
[2016-10-22] MEDS: Multivit, Therapeutic 1 TAB PO SCH (08:37)
[2016-10-22] MEDS: Saccharomyces boulardii 250 MG CAP PO SCH (08:37)
[2016-10-22] MEDS: Aspirin 81 mg Enteric Coated Tablet PO SCH (08:37)
[2016-10-22] MEDS: Furosemide 40 MG TAB PO SCH (08:38)
[2016-10-22] MEDS: predniSONE 20 MG TAB PO SCH (08:38)
--- NOTE | 2016-10-22 09:59 | PRG ---
DATE OF SERVICE: 10/22/2016 SUBJECTIVE: The patient said he had a good night. He said he has been eating a little better. He said he is able to do a little bit with physical therapy. He says he still has a periodic cough. OBJECTIVE: The patient is lying in bed, is weak, but appears comfortable in no distress. Vital sig ns show a temperature of 98.2, pulse 68, respirations 18, O2 sat 96% on 3 liters, blood pressure 121 /71. His lungs have moderate breath sounds with some mild wheeze on expiration. Heart, regular rat e. Extremities, no edema. ASSESSMENT: 1. Generalized weakness and deconditioning, followed two hospitalization first from 08/31/2016 to 09/06/2016 and the second from 09/17/2016 until 09/24/2016, both for acute exacerbations of his COPD with respiratory failure and atrial fibrillation. A. Continual progress has been hampered by his hypoxemia and shortness of breath with exertion as of 10/13/2016. 1. Gradual improvement, but activity is still very limited as of 10/22/2016. 2. Recent hospitalizations from 09/17/2016 until 09/24/2016 for: A. Acute exacerbation of chronic obstructive pulmonary disease with respiratory failure with atelectasis of the right lower lobe from severe tracheobronchitis requiring bronchoscopy. B. Recent cardioversion from atrial fibrillation to normal sinus rhythm on 09/03/2016 and remai ns in sinus rhythm. C. Replacement of biventricular ICD pacemaker on 09/23/2016. D. Bronchoscopy on 09/20/2016 for right lower lobe atelectasis with removal of extensive pus co mpletely occluding the right lower lobe with no endobronchial lesion and culture growing Swapna. 3. Coronary artery disease. A. Status post stent placement, right coronary artery in 2002. B. Status post aortic single vessel aortic valve bypass with aortic valve replacement in 2009. C. Stable as of 10/20/2016. 4. Aortic stenosis. A. Status post aortic valve replacement with a bovina bioprosthetic valve in 2009. 5. Nonischemic cardiomyopathy. A. Required initial biventricular ICD in 2005, generator replaced 2010 and again generator repl aced on 09/23/2016. B. Echocardiogram on 09/01/2016 showed an LV ejection fraction of 50-55%, normal functioning ao rtic valve prosthesis, bioprosthetic. C. Mild diastolic congestive heart failure, clinically resolved as of 10/04/2016. D. No evidence of acute congestive heart failure as of 10/20/2016. 6. Severe chronic obstructive pulmonary disease complicated by chronic hypoxemia requiring suppleme ntal O2. A. Complicated by some increased cough, sputum production and shortness of breath from a mild a cute exacerbation of his chronic obstructive pulmonary disease as of 10/13/2016. 1. Improved as of 10/22/2016. B. Complicated by chronic linear streaking or opacification right middle lung, that I suspect represents either scarring and/or atelectasis as of 10/13/2016. 7. Hypertension. 8. Hyperlipidemia. 9. Obstructive sleep apnea for which he uses a CPAP. 10. Constipation. 11. Depression and anxiety. A. Improved as of 10/20/2016. 12. Atrial fibrillation, paroxysmal. A. Status post cardioversion on 09/03/2016. B. Remains in sinus rhythm as of 09/24/2016. C. Anticoagulants being held due to right abdominal rectus muscle hematoma. 13. Oral candidiasis. A. Resolved as of 10/04/2016. 14. Insomnia. A. Controlled as of 10/11/2016. 15. Anorexia. A. Improved as of 10/18/2016. 16. Dysphagia. A. Improved as of 10/22/2016. PLAN: Encourage the patient to gradually increase activities within his capability. He has very ad vanced severe COPD which has certainly limited his capabilities. I visited with the patient's , Maren, about his condition. She was asking about the cough. I explained to her that this periodic cough is a part of his severe COPD. She is very concerned that his level of care is going to excee d what she will be capable of providing in the home and at this point I agree with that. She is sta rting to explore other options such as [facility], also had mentioned possibility of even hospice care. At this point I think they are more leaning toward possible usp placement for now. I think that he should stay put and continue receiving the therapy here in the physical therapy. T he level of care will be better here than in a [facility].
[2016-10-22] MEDS: Melatonin 3 MG TAB PO SCH (20:34)
[2016-10-22] MEDS: Mirtazapine 30 MG Soltab PO SCH (20:34)
[2016-10-22] MEDS: Pravastatin Sodium 20 MG TAB PO SCH (20:34)
[2016-10-23] MEDS: Mometasone/Formoterol 60 PUFF AER INH SCH ×2 (06:01→18:38)
[2016-10-23] MEDS: Saccharomyces boulardii 250 MG CAP PO SCH (08:50)
[2016-10-23] MEDS: Sotalol HCl 80 MG TAB PO SCH ×2 (08:50→20:12)
[2016-10-23] MEDS: Docusate 100 MG CAP PO SCH (08:51)
[2016-10-23] MEDS: Furosemide 40 MG TAB PO SCH (08:51)
[2016-10-23] MEDS: guaiFENesin ER 600 MG TAB PO SCH ×2 (08:51→20:12)
[2016-10-23] MEDS: Aspirin 81 mg Enteric Coated Tablet PO SCH (08:51)
[2016-10-23] MEDS: Nystatin 500,000 UNITS/5 ML UDCUP SSW SCH (08:55)
[2016-10-23] MEDS: predniSONE 20 MG TAB PO SCH (08:55)
[2016-10-23] MEDS: Multivit, Therapeutic 1 TAB PO SCH (08:55)
[2016-10-23] MEDS: Milk Of Magnesia 30 ML UDCUP PO PRN (14:42)
[2016-10-23] MEDS: Bisacodyl 10 MG SUPP PR PRN (18:15)
[2016-10-23] MEDS: Pravastatin Sodium 20 MG TAB PO SCH (20:12)
[2016-10-23] MEDS: Mirtazapine 30 MG Soltab PO SCH (20:12)
[2016-10-23] MEDS: Melatonin 3 MG TAB PO SCH (20:12)
[2016-10-24] MEDS: Mometasone/Formoterol 60 PUFF AER INH SCH ×2 (06:50→19:07)
[2016-10-24] MEDS: Aspirin 81 mg Enteric Coated Tablet PO SCH (08:51)
[2016-10-24] MEDS: Multivit, Therapeutic 1 TAB PO SCH (08:51)
[2016-10-24] MEDS: Docusate 100 MG CAP PO SCH (08:51)
[2016-10-24] MEDS: Sotalol HCl 80 MG TAB PO SCH ×2 (08:51→20:44)
[2016-10-24] MEDS: guaiFENesin ER 600 MG TAB PO SCH ×2 (08:51→20:44)
[2016-10-24] MEDS: Furosemide 40 MG TAB PO SCH (08:51)
[2016-10-24] MEDS: Saccharomyces boulardii 250 MG CAP PO SCH (08:51)
[2016-10-24] MEDS: predniSONE 20 MG TAB PO SCH (08:52)
[2016-10-24] MEDS: Mirtazapine 30 MG Soltab PO SCH (20:44)
[2016-10-24] MEDS: Melatonin 3 MG TAB PO SCH (20:44)
[2016-10-24] MEDS: Pravastatin Sodium 20 MG TAB PO SCH (20:45)
[2016-10-25] MEDS: Guaifenesin DM 100-10/5 ML UDCUP PO PRN (06:23)
[2016-10-25] MEDS: Mometasone/Formoterol 60 PUFF AER INH SCH ×2 (06:25→18:25)
[2016-10-25 07:35] LABS: #Basophils 0.1 thou/uL (0.0-0.2); #Eosinphils 0.1 thou/uL (0.0-0.7); #Lymphocytes 1.3 thou/uL (1.20-3.40); #Monocytes 0.4 thou/uL (0.11-0.59); #Neutrophils 6.9 thou/uL (1.40-6.50); %Basophils 0.6 % (0.0-1.0); %Eosinophils 0.8 % (0.0-10.0); %Lymphocytes 15.3 % (21.0-51.0); %Monocytes 4.8 % (0.0-10.0); %Neutrophils 78.5 % (42.0-75.0); Hemoglobin 12.2 g/dL (14.0-18.0); Mean Corpuscular HGB CONC 32.1 g/dL (32.0-36.0); Mean Corpuscular Hemoglobin 31.8 pg (27.0-31.0); Mean Corpuscular Volume 98.9 fl (80.0-94.0); Mean Platelet Volume 6.4 fL (7.4-10.4); Platelet Count 198 thou/uL (130-400); RBC Distribution Width 16.5 % (11.5-14.5); Red Blood Cell (RBC) Count 3.83 mill/uL (4.70-6.10); White Blood Cell (WBC) Count 8.8 thou/uL (4.8-10.8)
[2016-10-25] MEDS ORDERED: predniSONE 20 MG TAB PO SCH ×2 (08:26→08:30)
[2016-10-25] MEDS: Saccharomyces boulardii 250 MG CAP PO SCH (08:36)
[2016-10-25] MEDS: Sotalol HCl 80 MG TAB PO SCH ×2 (08:36→20:27)
[2016-10-25] MEDS: Furosemide 40 MG TAB PO SCH (08:36)
[2016-10-25] MEDS: Docusate 100 MG CAP PO SCH (08:36)
[2016-10-25] MEDS: Aspirin 81 mg Enteric Coated Tablet PO SCH (08:37)
[2016-10-25] MEDS: Multivit, Therapeutic 1 TAB PO SCH (08:37)
[2016-10-25] MEDS: guaiFENesin ER 600 MG TAB PO SCH ×2 (08:37→20:26)
[2016-10-25] MEDS: predniSONE 20 MG TAB PO SCH (09:25)
--- NOTE | 2016-10-25 09:30 | PRG ---
DATE OF SERVICE: 10/25/2016 SUBJECTIVE: The patient said he is feeling better. He had a good night. Yesterday, he was able to walk more. OBJECTIVE: The patient looks excellent. This morning he appears very comfortable and in no distres s. His vital signs shows temperature 97.3, pulse 73, respirations 18, O2 sat 92%. Blood pressure 1 19/82. Lungs are clear. Heart, regular rate. Extremities, no edema. Lab shows an H\T\H of 12.2 and 37.8, white cell count 8800 with 79% segs, 15% lymphocytes, and plate let count 198,000. ASSESSMENT: 1. Generalized weakness and deconditioning, followed two hospitalization first from 08/31/2016 to 09/06/2016 and the second from 09/17/2016 until 09/24/2016, both for acute exacerbations of his COPD with respiratory failure and atrial fibrillation. A. Gradual continual improvement as of 10/25/2016. 2. Recent hospitalizations from 09/17/2016 until 09/24/2016 for: A. Acute exacerbation of chronic obstructive pulmonary disease with respiratory failure with atelectasis of the right lower lobe from severe tracheobronchitis requiring bronchoscopy. B. Recent cardioversion from atrial fibrillation to normal sinus rhythm on 09/03/2016 and remai ns in sinus rhythm. C. Replacement of biventricular ICD pacemaker on 09/23/2016. D. Bronchoscopy on 09/20/2016 for right lower lobe atelectasis with removal of extensive pus co mpletely occluding the right lower lobe with no endobronchial lesion and culture growing Swapna. 3. Coronary artery disease. A. Status post stent placement, right coronary artery in 2002. B. Status post aortic single vessel aortic valve bypass with aortic valve replacement in 2009. C. Stable as of 10/25/2016. 4. Aortic stenosis. A. Status post aortic valve replacement with a bovina bioprosthetic valve in 2009. 5. Nonischemic cardiomyopathy. A. Required initial biventricular ICD in 2005, generator replaced 2010 and again generator repl aced on 09/23/2016. B. Echocardiogram on 09/01/2016 showed an LV ejection fraction of 50-55%, normal functioning ao rtic valve prosthesis, bioprosthetic. C. Mild diastolic congestive heart failure, clinically resolved as of 10/04/2016. D. No evidence of acute congestive heart failure as of 10/25/2016. 6. Severe chronic obstructive pulmonary disease complicated by chronic hypoxemia requiring suppleme ntal O2. A. Complicated by some increased cough, sputum production and shortness of breath from a mild a cute exacerbation of his chronic obstructive pulmonary disease as of 10/13/2016. A1. Resolved as of 10/25/2016. B. Complicated by chronic linear streaking or opacification right middle lung, that I suspect represents either scarring and/or atelectasis as of 10/13/2016. 7. Hypertension. 8. Hyperlipidemia. 9. Obstructive sleep apnea for which he uses a CPAP. 10. Constipation. 11. Depression and anxiety. A. Improved as of 10/25/2016. 12. Atrial fibrillation, paroxysmal. A. Status post cardioversion on 09/03/2016. B. Remains in sinus rhythm as of 09/24/2016. C. Anticoagulants being held due to right abdominal rectus muscle hematoma. 13. Oral candidiasis. A. Resolved as of 10/04/2016. 14. Insomnia. A. Controlled as of 10/11/2016. 15. Anorexia. A. Resolved as of 10/25/2016. 16. Dysphagia. A. Improved as of 10/25/2016. PLAN: The patient looks much better overall. He is doing a little bit more. We will continue his physical therapy. He has completed his antibiotics. 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
[2016-10-25 10:04] LABS: ALT (SGPT) 43 U/L (0-55); AST (SGOT) 22 U/L (5-34); Albumin 3.1 g/dL (3.4-4.8); Alkaline Phosphatase 56 U/L (40-150); Anion Gap 21 mmol/L (10-20); BUN (Urea Nitrogen) 23 mg/dL (8.4-25.7); Bilirubin, Total Less than 0.3 mg/dL (0.2-1.2); Calc. Creatinine Clearance 85 mL/min (70-130); Calcium 9.3 mg/dL (7.8-10.44); Carbon Dioxide 28 mmol/L (23-31); Chloride 95 mmol/L (98-107); Estimated GFR-MDRD Greater than 90; Globulin 2.5 g/dL (2.4-3.5); Glucose 71 mg/dL (83-110); Potassium 4.4 mmol/L (3.5-5.1); Protein, Total 5.6 g/dL (5.8-8.1); Sodium 140 mmol/L (136-145)
[2016-10-25] MEDS: Melatonin 3 MG TAB PO SCH (20:27)
[2016-10-25] MEDS: Pravastatin Sodium 20 MG TAB PO SCH (20:27)
[2016-10-25] MEDS: Mirtazapine 30 MG Soltab PO SCH (20:27)
[2016-10-26] MEDS: Mometasone/Formoterol 60 PUFF AER INH SCH ×2 (06:10→18:38)
[2016-10-26] MEDS: Aspirin 81 mg Enteric Coated Tablet PO SCH (08:51)
[2016-10-26] MEDS: predniSONE 20 MG TAB PO SCH (08:51)
[2016-10-26] MEDS: Multivit, Therapeutic 1 TAB PO SCH (08:51)
[2016-10-26] MEDS: Furosemide 40 MG TAB PO SCH (08:51)
[2016-10-26] MEDS: guaiFENesin ER 600 MG TAB PO SCH ×2 (08:51→20:27)
[2016-10-26] MEDS: Docusate 100 MG CAP PO SCH (08:51)
[2016-10-26] MEDS: Sotalol HCl 80 MG TAB PO SCH ×2 (08:52→20:27)
[2016-10-26] MEDS: Saccharomyces boulardii 250 MG CAP PO SCH (08:52)
[2016-10-26] MEDS: Acetaminophen 325 MG TAB PO PRN (20:27)
[2016-10-26] MEDS: Melatonin 3 MG TAB PO SCH (20:27)
[2016-10-26] MEDS: Mirtazapine 30 MG Soltab PO SCH (20:27)
[2016-10-26] MEDS: Pravastatin Sodium 20 MG TAB PO SCH (20:27)
[2016-10-27] MEDS: Mometasone/Formoterol 60 PUFF AER INH SCH ×2 (06:12→19:04)
[2016-10-27] MEDS: Saccharomyces boulardii 250 MG CAP PO SCH (08:32)
[2016-10-27] MEDS: Aspirin 81 mg Enteric Coated Tablet PO SCH (08:32)
[2016-10-27] MEDS: Sotalol HCl 80 MG TAB PO SCH ×2 (08:32→20:27)
[2016-10-27] MEDS: Furosemide 40 MG TAB PO SCH (08:32)
[2016-10-27] MEDS: guaiFENesin ER 600 MG TAB PO SCH ×2 (08:32→20:27)
[2016-10-27] MEDS: Multivit, Therapeutic 1 TAB PO SCH (08:32)
[2016-10-27] MEDS: Docusate 100 MG CAP PO SCH (08:32)
[2016-10-27] MEDS: predniSONE 20 MG TAB PO SCH (08:32)
--- NOTE | 2016-10-27 09:14 | PRG ---
DATE OF SERVICE: 10/27/2016 SUBJECTIVE: The patient said he is doing better. He says his breathing is doing better. He is doi ng better with his exercise and not getting as short of breath as he had been. OBJECTIVE: The patient is lying in bed. He is alert and appears in no distress. His vital signs s hows temperature 97.8, pulse 68, respirations 18, O2 saturation 97%, blood pressure 133/77. Lungs: Breath sounds are moderate. Lungs are clear. Heart, regular rate. Extremities, no edema. ASSESSMENT: 1. Generalized weakness and deconditioning, followed two hospitalization first from 08/31/2016 to 09/06/2016 and the second from 09/17/2016 until 09/24/2016, both for acute exacerbations of his COPD with respiratory failure and atrial fibrillation. A. Gradual continual improvement as of 10/27/2016. 2. Recent hospitalizations from 09/17/2016 until 09/24/2016 for: A. Acute exacerbation of chronic obstructive pulmonary disease with respiratory failure with atelectasis of the right lower lobe from severe tracheobronchitis requiring bronchoscopy. B. Recent cardioversion from atrial fibrillation to normal sinus rhythm on 09/03/2016 and remai ns in sinus rhythm. C. Replacement of biventricular ICD pacemaker on 09/23/2016. D. Bronchoscopy on 09/20/2016 for right lower lobe atelectasis with removal of extensive pus co mpletely occluding the right lower lobe with no endobronchial lesion and culture growing Swapna. 3. Coronary artery disease. A. Status post stent placement, right coronary artery in 2002. B. Status post aortic single vessel aortic valve bypass with aortic valve replacement in 2009. C. Stable as of 10/27/2016. 4. Aortic stenosis. A. Status post aortic valve replacement with a bovina bioprosthetic valve in 2009. 5. Nonischemic cardiomyopathy. A. Required initial biventricular ICD in 2005, generator replaced 2010 and again generator repl aced on 09/23/2016. B. Echocardiogram on 09/01/2016 showed an LV ejection fraction of 50-55%, normal functioning ao rtic valve prosthesis, bioprosthetic. C. Mild diastolic congestive heart failure, clinically resolved as of 10/04/2016. D. No evidence of acute congestive heart failure as of 10/27/2016. 6. Severe chronic obstructive pulmonary disease complicated by chronic hypoxemia requiring suppleme ntal O2. A. Complicated by some increased cough, sputum production and shortness of breath from a mild a cute exacerbation of his chronic obstructive pulmonary disease as of 10/13/2016. A1. Resolved as of 10/25/2016. B. Complicated by chronic linear streaking or opacification right middle lung, that I suspect represents either scarring and/or atelectasis as of 10/13/2016. C. Stable with improved exercise tolerance as of 10/27/2016. 7. Hypertension. 8. Hyperlipidemia. 9. Obstructive sleep apnea for which he uses a CPAP. 10. Constipation. 11. Depression and anxiety. A. Improved as of 10/25/2016. 12. Atrial fibrillation, paroxysmal. A. Status post cardioversion on 09/03/2016. B. Remains in sinus rhythm as of 09/24/2016. C. Anticoagulants being held due to right abdominal rectus muscle hematoma. 13. Oral candidiasis. A. Resolved as of 10/04/2016. 14. Insomnia. A. Controlled as of 10/11/2016. 15. Anorexia. A. Resolved as of 10/25/2016. 16. Dysphagia. A. Improved as of 10/27/2016. PLAN: Continue present care. Continue physical [id number].
[2016-10-27] MEDS: Acetaminophen 325 MG TAB PO PRN (14:21)
[2016-10-27] MEDS: Melatonin 3 MG TAB PO SCH (20:28)
[2016-10-27] MEDS: Pravastatin Sodium 20 MG TAB PO SCH (20:28)
[2016-10-27] MEDS: Mirtazapine 30 MG Soltab PO SCH (20:29)
[2016-10-28] MEDS: Mometasone/Formoterol 60 PUFF AER INH SCH ×2 (07:03→20:24)
[2016-10-28] MEDS: predniSONE 20 MG TAB PO SCH (09:58)
[2016-10-28] MEDS: Furosemide 40 MG TAB PO SCH (09:59)
[2016-10-28] MEDS: guaiFENesin ER 600 MG TAB PO SCH ×2 (09:59→20:25)
[2016-10-28] MEDS: Docusate 100 MG CAP PO SCH (09:59)
[2016-10-28] MEDS: Aspirin 81 mg Enteric Coated Tablet PO SCH (09:59)
[2016-10-28] MEDS: Saccharomyces boulardii 250 MG CAP PO SCH (10:00)
[2016-10-28] MEDS: Multivit, Therapeutic 1 TAB PO SCH (10:00)
[2016-10-28] MEDS: Sotalol HCl 80 MG TAB PO SCH ×2 (10:00→20:26)
[2016-10-28] MEDS: Milk Of Magnesia 30 ML UDCUP PO PRN (15:25)
[2016-10-28] MEDS: Melatonin 3 MG TAB PO SCH (20:26)
[2016-10-28] MEDS: Pravastatin Sodium 20 MG TAB PO SCH (20:26)
[2016-10-28] MEDS: Mirtazapine 30 MG Soltab PO SCH (20:26)
[2016-10-29] MEDS: Mometasone/Formoterol 60 PUFF AER INH SCH ×2 (06:14→18:16)
[2016-10-29] MEDS: Saccharomyces boulardii 250 MG CAP PO SCH (08:38)
[2016-10-29] MEDS: guaiFENesin ER 600 MG TAB PO SCH ×2 (08:38→20:15)
[2016-10-29] MEDS: Sotalol HCl 80 MG TAB PO SCH ×2 (08:38→20:16)
[2016-10-29] MEDS: predniSONE 20 MG TAB PO SCH (08:38)
[2016-10-29] MEDS: Multivit, Therapeutic 1 TAB PO SCH (08:38)
[2016-10-29] MEDS: Aspirin 81 mg Enteric Coated Tablet PO SCH (08:38)
[2016-10-29] MEDS: Docusate 100 MG CAP PO SCH (08:38)
[2016-10-29] MEDS: Furosemide 40 MG TAB PO SCH (08:39)
[2016-10-29] MEDS ORDERED: Furosemide 20 MG TAB PO SCH (09:45)
--- NOTE | 2016-10-29 10:07 | PRG ---
DATE OF SERVICE: 10/29/2016 SUBJECTIVE: The patient said he is better. He is resting better at night. He did ask if the furos emide could be reduced because it is causing him to urinate so frequently. At home he said he was o nly using a half of a 20 mg daily. He says he is doing better with his walking, he is not as out of breath. The therapist said he is walking much further and O2 saturation is staying up with supplem ental O2. OBJECTIVE: The patient is standing leaning against his walker preparing to walk down the vance with his O2 in place. His vital signs show a temperature of 97.4, pulse 73, blood pressure 128/76, respi rations 20, O2 sat 92% on room air. Lungs; there are some expiratory rhonchi. No rales. Heart: R egular rate. Extremities, no edema. ASSESSMENT: 1. Generalized weakness and deconditioning, followed two hospitalization first from 08/31/2016 to 09/06/2016 and the second from 09/17/2016 until 09/24/2016, both for acute exacerbations of his COPD with respiratory failure and atrial fibrillation. A. Gradual continual improvement as of 10/29/2016. 2. Recent hospitalizations from 09/17/2016 until 09/24/2016 for: A. Acute exacerbation of chronic obstructive pulmonary disease with respiratory failure with atelectasis of the right lower lobe from severe tracheobronchitis requiring bronchoscopy. B. Recent cardioversion from atrial fibrillation to normal sinus rhythm on 09/03/2016 and remai ns in sinus rhythm. C. Replacement of biventricular ICD pacemaker on 09/23/2016. D. Bronchoscopy on 09/20/2016 for right lower lobe atelectasis with removal of extensive pus co mpletely occluding the right lower lobe with no endobronchial lesion and culture growing Swapna. 3. Coronary artery disease. A. Status post stent placement, right coronary artery in 2002. B. Status post aortic single vessel aortic valve bypass with aortic valve replacement in 2009. C. Stable as of 10/29/2016. 4. Aortic stenosis. A. Status post aortic valve replacement with a bovina bioprosthetic valve in 2009. 5. Nonischemic cardiomyopathy. A. Required initial biventricular ICD in 2005, generator replaced 2010 and again generator repl aced on 09/23/2016. B. Echocardiogram on 09/01/2016 showed an LV ejection fraction of 50-55%, normal functioning ao rtic valve prosthesis, bioprosthetic. C. Mild diastolic congestive heart failure, clinically resolved as of 10/04/2016. D. No evidence of acute congestive heart failure as of 10/29/2016. 6. Severe chronic obstructive pulmonary disease complicated by chronic hypoxemia requiring suppleme ntal O2. A. Complicated by some increased cough, sputum production and shortness of breath from a mild a cute exacerbation of his chronic obstructive pulmonary disease as of 10/13/2016. A1. Resolved as of 10/25/2016. B. Complicated by chronic linear streaking or opacification right middle lung, that I suspect represents either scarring and/or atelectasis as of 10/13/2016. C. Stable with improved exercise tolerance as of 10/29/2016. 7. Hypertension. 8. Hyperlipidemia. 9. Obstructive sleep apnea for which he uses a CPAP. 10. Constipation. 11. Depression and anxiety. A. Improved as of 10/29/2016. 12. Atrial fibrillation, paroxysmal. A. Status post cardioversion on 09/03/2016. B. Remains in sinus rhythm as of 09/24/2016. C. Anticoagulants being held due to right abdominal rectus muscle hematoma. 13. Oral candidiasis. A. Resolved as of 10/04/2016. 14. Insomnia. A. Controlled as of 10/11/2016. 15. Anorexia. A. Resolved as of 10/25/2016. 16. Dysphagia. A. Stable and doing well on mechanical soft diet as of 10/29/2016. PLAN: Continue present care. Will reduce the furosemide to 20 mg daily, and see if this can be gra dually phased out.
[2016-10-29] MEDS: Melatonin 3 MG TAB PO SCH (20:15)
[2016-10-29] MEDS: Mirtazapine 30 MG Soltab PO SCH (20:15)
[2016-10-29] MEDS: Pravastatin Sodium 20 MG TAB PO SCH (20:15)
[2016-10-30] MEDS: Mometasone/Formoterol 60 PUFF AER INH SCH ×2 (05:36→18:17)
[2016-10-30] MEDS: predniSONE 20 MG TAB PO SCH (08:50)
[2016-10-30] MEDS: guaiFENesin ER 600 MG TAB PO SCH ×2 (08:51→20:17)
[2016-10-30] MEDS: Furosemide 20 MG TAB PO SCH (08:51)
[2016-10-30] MEDS: Sotalol HCl 80 MG TAB PO SCH ×2 (08:51→20:20)
[2016-10-30] MEDS: Multivit, Therapeutic 1 TAB PO SCH (08:51)
[2016-10-30] MEDS: Aspirin 81 mg Enteric Coated Tablet PO SCH (08:52)
[2016-10-30] MEDS: Docusate 100 MG CAP PO SCH (08:52)
[2016-10-30] MEDS: Saccharomyces boulardii 250 MG CAP PO SCH (08:52)
[2016-10-30] MEDS: Milk Of Magnesia 30 ML UDCUP PO PRN (13:11)
[2016-10-30] MEDS: Acetaminophen 325 MG TAB PO PRN (15:35)
[2016-10-30] MEDS: Pravastatin Sodium 20 MG TAB PO SCH (20:16)
[2016-10-30] MEDS: Melatonin 3 MG TAB PO SCH (20:17)
[2016-10-30] MEDS: Mirtazapine 30 MG Soltab PO SCH (20:17)
[2016-10-31] MEDS: Mometasone/Formoterol 60 PUFF AER INH SCH ×2 (06:06→18:16)
[2016-10-31] MEDS: guaiFENesin ER 600 MG TAB PO SCH ×2 (08:37→20:45)
[2016-10-31] MEDS: Saccharomyces boulardii 250 MG CAP PO SCH (08:37)
[2016-10-31] MEDS: Docusate 100 MG CAP PO SCH (08:37)
[2016-10-31] MEDS: Furosemide 20 MG TAB PO SCH (08:37)
[2016-10-31] MEDS: Aspirin 81 mg Enteric Coated Tablet PO SCH (08:37)
[2016-10-31] MEDS: Sotalol HCl 80 MG TAB PO SCH ×2 (08:37→20:46)
[2016-10-31] MEDS: Multivit, Therapeutic 1 TAB PO SCH (08:38)
[2016-10-31] MEDS: predniSONE 20 MG TAB PO SCH (08:38)
[2016-10-31] MEDS: Acetaminophen 325 MG TAB PO PRN (17:10)
[2016-10-31] MEDS: Melatonin 3 MG TAB PO SCH (20:46)
[2016-10-31] MEDS: Pravastatin Sodium 20 MG TAB PO SCH (20:46)
[2016-10-31] MEDS: Mirtazapine 30 MG Soltab PO SCH (20:47)
[2016-11-01] MEDS: Mometasone/Formoterol 60 PUFF AER INH SCH ×2 (06:40→18:08)
[2016-11-01] MEDS: Aspirin 81 mg Enteric Coated Tablet PO SCH (08:35)
[2016-11-01] MEDS: guaiFENesin ER 600 MG TAB PO SCH ×2 (08:35→20:30)
[2016-11-01] MEDS: Docusate 100 MG CAP PO SCH (08:35)
[2016-11-01] MEDS: Furosemide 20 MG TAB PO SCH (08:35)
[2016-11-01] MEDS: Multivit, Therapeutic 1 TAB PO SCH (08:35)
[2016-11-01] MEDS: Saccharomyces boulardii 250 MG CAP PO SCH (08:35)
[2016-11-01] MEDS: Sotalol HCl 80 MG TAB PO SCH ×2 (08:36→20:31)
[2016-11-01] MEDS: predniSONE 20 MG TAB PO SCH (08:36)
--- NOTE | 2016-11-01 10:20 | PRG ---
DATE OF SERVICE: 11/01/2016 SUBJECTIVE: The patient thinks he is doing pretty good. He just have a little trouble with constip ation, and says he does use the milk of Magnesia that does help and he is on Colace, but the Colace did not seem to be quite enough. OBJECTIVE: GENERAL: The patient lying in bed, alert, appears comfortable, in no distress. VITAL SIGNS: Shows a temperature of 97.5, pulse 76, respirations 20, and O2 saturations 96% on 2 li ters, blood pressure 113/76. LUNGS: Clear. HEART: Regular rate. EXTREMITIES: No edema. ASSESSMENT: 1. Generalized weakness and deconditioning, followed two hospitalization first from 08/31/2016 to 09/06/2016 and the second from 09/17/2016 until 09/24/2016, both for acute exacerbations of his COPD with respiratory failure and atrial fibrillation. A. Gradual continual improvement as of 11/01/2016. 2. Recent hospitalizations from 09/17/2016 until 09/24/2016 for: A. Acute exacerbation of chronic obstructive pulmonary disease with respiratory failure with atelectasis of the right lower lobe from severe tracheobronchitis requiring bronchoscopy. B. Recent cardioversion from atrial fibrillation to normal sinus rhythm on 09/03/2016 and remai ns in sinus rhythm. C. Replacement of biventricular ICD pacemaker on 09/23/2016. D. Bronchoscopy on 09/20/2016 for right lower lobe atelectasis with removal of extensive pus co mpletely occluding the right lower lobe with no endobronchial lesion and culture growing Swapna. 3. Coronary artery disease. A. Status post stent placement, right coronary artery in 2002. B. Status post aortic single vessel aortic valve bypass with aortic valve replacement in 2009. C. Stable as of 11/01/2016. 4. Aortic stenosis. A. Status post aortic valve replacement with a bovina bioprosthetic valve in 2009. 5. Nonischemic cardiomyopathy. A. Required initial biventricular ICD in 2005, generator replaced 2010 and again generator repl aced on 09/23/2016. B. Echocardiogram on 09/01/2016 showed an LV ejection fraction of 50-55%, normal functioning ao rtic valve prosthesis, bioprosthetic. C. Mild diastolic congestive heart failure, clinically resolved as of 10/04/2016. D. No evidence of acute congestive heart failure as of 11/01/2016. 6. Severe chronic obstructive pulmonary disease complicated by chronic hypoxemia requiring suppleme ntal O2. A. Complicated by some increased cough, sputum production and shortness of breath from a mild a cute exacerbation of his chronic obstructive pulmonary disease as of 10/13/2016. A1. Resolved as of 10/25/2016. B. Complicated by chronic linear streaking or opacification right middle lung, that I suspect represents either scarring and/or atelectasis as of 10/13/2016. C. Stable with improved exercise tolerance as of 11/01/2016. 7. Hypertension. 8. Hyperlipidemia. 9. Obstructive sleep apnea for which he uses a CPAP. 10. Constipation. 11. Depression and anxiety. A. Improved as of 10/29/2016. 12. Atrial fibrillation, paroxysmal. A. Status post cardioversion on 09/03/2016. B. Remains in sinus rhythm as of 09/24/2016. C. Anticoagulants being held due to right abdominal rectus muscle hematoma. 13. Oral candidiasis. A. Resolved as of 10/04/2016. 14. Insomnia. A. Controlled as of 10/11/2016. 15. Anorexia. A. Resolved as of 10/25/2016. 16. Dysphagia. A. Stable and doing well on mechanical soft diet as of 11/01/2016. PLAN: Continue present care. Continue physical therapy. For the constipation, we will place patie nt on Senokot S b.i.d. and was stopped the MiraLax, said he did not like this. Use milk of Magnesia p.r.n.
[2016-11-01] MEDS: Senokot S 8.6-50 MG TAB PO SCH ×2 (11:01→20:31)
[2016-11-01] MEDS: Acetaminophen 325 MG TAB PO PRN ×2 (11:03→20:31)
[2016-11-01] MEDS: Melatonin 3 MG TAB PO SCH (20:30)
[2016-11-01] MEDS: Mirtazapine 30 MG Soltab PO SCH (20:30)
[2016-11-01] MEDS: Pravastatin Sodium 20 MG TAB PO SCH (20:31)
[2016-11-02] MEDS: Mometasone/Formoterol 60 PUFF AER INH SCH ×2 (05:37→19:39)
[2016-11-02] MEDS: Docusate 100 MG CAP PO SCH (08:16)
[2016-11-02] MEDS: Senokot S 8.6-50 MG TAB PO SCH ×2 (08:16→20:21)
[2016-11-02] MEDS: predniSONE 20 MG TAB PO SCH (08:16)
[2016-11-02] MEDS: guaiFENesin ER 600 MG TAB PO SCH ×2 (08:16→20:20)
[2016-11-02] MEDS: Aspirin 81 mg Enteric Coated Tablet PO SCH (08:16)
[2016-11-02] MEDS: Sotalol HCl 80 MG TAB PO SCH ×2 (08:17→20:21)
[2016-11-02] MEDS: Furosemide 20 MG TAB PO SCH (08:18)
[2016-11-02] MEDS: Saccharomyces boulardii 250 MG CAP PO SCH (08:18)
[2016-11-02] MEDS: Multivit, Therapeutic 1 TAB PO SCH (08:18)
[2016-11-02] MEDS: Milk Of Magnesia 30 ML UDCUP PO PRN (12:16)
[2016-11-02] MEDS: Mag-Al Plus 1200 MG/1200 MG/120 MG/30 ML UDCUP PO PRN (12:46)
[2016-11-02] MEDS: Melatonin 3 MG TAB PO SCH (20:20)
[2016-11-02] MEDS: Mirtazapine 30 MG Soltab PO SCH (20:20)
[2016-11-02] MEDS: Pravastatin Sodium 20 MG TAB PO SCH (20:20)
[2016-11-03] MEDS: Mometasone/Formoterol 60 PUFF AER INH SCH ×2 (06:17→19:09)
[2016-11-03] MEDS: predniSONE 20 MG TAB PO SCH (08:47)
[2016-11-03] MEDS: Docusate 100 MG CAP PO SCH (08:47)
[2016-11-03] MEDS: guaiFENesin ER 600 MG TAB PO SCH ×2 (08:47→21:05)
[2016-11-03] MEDS: Sotalol HCl 80 MG TAB PO SCH ×2 (08:48→21:06)
[2016-11-03] MEDS: Multivit, Therapeutic 1 TAB PO SCH (08:48)
[2016-11-03] MEDS: Saccharomyces boulardii 250 MG CAP PO SCH (08:48)
[2016-11-03] MEDS: Furosemide 20 MG TAB PO SCH (08:48)
[2016-11-03] MEDS: Senokot S 8.6-50 MG TAB PO SCH ×2 (08:48→21:06)
[2016-11-03] MEDS: Aspirin 81 mg Enteric Coated Tablet PO SCH (08:48)
--- NOTE | 2016-11-03 09:06 | PRG ---
DATE OF SERVICE: 11/03/2016 SUBJECTIVE: The patient says he is feeling a little better. Overall, he thinks he is doing a littl e better with his physical therapy. His breathing is doing good. His swallowing is okay. He has h ad a little trouble still with his bowels, but was started on Senokot S yesterday and has Milk of Ma gnesia to fall back on if needed. OBJECTIVE: The patient is lying in bed, seems to be in good spirits and appears in no distress. Hi s temperature is 97.7, pulse 71, respirations 18, O2 sat 94%, blood pressure 131/71. Lungs are regina r. Heart, regular rate. Extremities, no edema. ASSESSMENT: 1. Generalized weakness and deconditioning, followed two hospitalization first from 08/31/2016 to 09/06/2016 and the second from 09/17/2016 until 09/24/2016, both for acute exacerbations of his COPD with respiratory failure and atrial fibrillation. A. Gradual continual improvement as of 11/03/2016. 2. Recent hospitalizations from 09/17/2016 until 09/24/2016 for: A. Acute exacerbation of chronic obstructive pulmonary disease with respiratory failure with atelectasis of the right lower lobe from severe tracheobronchitis requiring bronchoscopy. B. Recent cardioversion from atrial fibrillation to normal sinus rhythm on 09/03/2016 and remai ns in sinus rhythm. C. Replacement of biventricular ICD pacemaker on 09/23/2016. D. Bronchoscopy on 09/20/2016 for right lower lobe atelectasis with removal of extensive pus co mpletely occluding the right lower lobe with no endobronchial lesion and culture growing Swapna. 3. Coronary artery disease. A. Status post stent placement, right coronary artery in 2002. B. Status post aortic single vessel aortic valve bypass with aortic valve replacement in 2009. C. Stable as of 11/03/2016. 4. Aortic stenosis. A. Status post aortic valve replacement with a bovina bioprosthetic valve in 2009. 5. Nonischemic cardiomyopathy. A. Required initial biventricular ICD in 2005, generator replaced 2010 and again generator repl aced on 09/23/2016. B. Echocardiogram on 09/01/2016 showed an LV ejection fraction of 50-55%, normal functioning ao rtic valve prosthesis, bioprosthetic. C. Mild diastolic congestive heart failure, clinically resolved as of 10/04/2016. D. No evidence of acute congestive heart failure as of 11/03/2016. 6. Severe chronic obstructive pulmonary disease complicated by chronic hypoxemia requiring suppleme ntal O2. A. Complicated by some increased cough, sputum production and shortness of breath from a mild a cute exacerbation of his chronic obstructive pulmonary disease as of 10/13/2016. A1. Resolved as of 10/25/2016. B. Complicated by chronic linear streaking or opacification right middle lung, that I suspect represents either scarring and/or atelectasis as of 10/13/2016. C. Stable with improved exercise tolerance as of 11/03/2016. 7. Hypertension. 8. Hyperlipidemia. 9. Obstructive sleep apnea for which he uses a CPAP. 10. Constipation. 11. Depression and anxiety. A. Improved as of 11/03/2016. 12. Atrial fibrillation, paroxysmal. A. Status post cardioversion on 09/03/2016. B. Remains in sinus rhythm as of 09/24/2016. C. Anticoagulants being held due to right abdominal rectus muscle hematoma. 13. Oral candidiasis. A. Resolved as of 10/04/2016. 14. Insomnia. A. Controlled as of 10/11/2016. 15. Anorexia. A. Resolved as of 10/25/2016. 16. Dysphagia. A. Stable and doing well on mechanical soft diet as of 11/03/2016. PLAN: The patient is making slow continual progress. Will continue physical therapy. Visited with him that if his strength improves, then he and his will decide if his level of care can be me t by her in the home with home health versus a intermediate. I think his progress is progressing wh ere this is certainly feasible.
[2016-11-03] MEDS: Milk Of Magnesia 30 ML UDCUP PO PRN (12:21)
[2016-11-03 13:11] LABS: Bilirubin Negative (Negative); Blood, Urine Negative (Negative); Clarity Clear (Clear); Glucose, Urine (Dipstick) Negative (Negative); Leukocyte Negative (Negative); Nitrite Negative (Negative); Protein, Urine (Dipstick) Negative (Neg-Trace); Urobilinogen 0.2 mg/dL (0.2-1.0); pH, Urine 7.5 (5.0-9.0)
[2016-11-03 13:44] LABS: RBC/HPF 0-3 HPF (0-3)
[2016-11-03 13:45] LABS: Bacteria/HPF Rare-Few HPF (None Seen); Squamous Epithelial 0-3 HPF (0-3); WBC/HPF None Seen HPF (0-3)
[2016-11-03] MEDS: Acetaminophen 325 MG TAB PO PRN (16:04)
[2016-11-03] MEDS: Bisacodyl 10 MG SUPP PR PRN (17:15)
[2016-11-03] MEDS: Melatonin 3 MG TAB PO SCH (21:05)
[2016-11-03] MEDS: Mirtazapine 30 MG Soltab PO SCH (21:06)
[2016-11-03] MEDS: Pravastatin Sodium 20 MG TAB PO SCH (21:06)
[2016-11-04] MEDS: Mometasone/Formoterol 60 PUFF AER INH SCH ×2 (05:32→18:07)
[2016-11-04] MEDS: Mag-Al Plus 1200 MG/1200 MG/120 MG/30 ML UDCUP PO PRN (09:05)
[2016-11-04] MEDS: Docusate 100 MG CAP PO SCH (09:06)
[2016-11-04] MEDS: guaiFENesin ER 600 MG TAB PO SCH ×2 (09:06→20:29)
[2016-11-04] MEDS: predniSONE 20 MG TAB PO SCH (09:06)
[2016-11-04] MEDS: Saccharomyces boulardii 250 MG CAP PO SCH (09:07)
[2016-11-04] MEDS: Senokot S 8.6-50 MG TAB PO SCH ×2 (09:07→20:29)
[2016-11-04] MEDS: Multivit, Therapeutic 1 TAB PO SCH (09:07)
[2016-11-04] MEDS: Aspirin 81 mg Enteric Coated Tablet PO SCH (09:07)
[2016-11-04] MEDS: Furosemide 20 MG TAB PO SCH (09:07)
[2016-11-04] MEDS: Sotalol HCl 80 MG TAB PO SCH ×2 (09:07→20:29)
[2016-11-04] MEDS: Melatonin 3 MG TAB PO SCH (20:29)
[2016-11-04] MEDS: Pravastatin Sodium 20 MG TAB PO SCH (20:29)
[2016-11-04] MEDS: Mirtazapine 30 MG Soltab PO SCH (20:29)
[2016-11-05] MEDS: Mometasone/Formoterol 60 PUFF AER INH SCH ×2 (06:04→17:51)
[2016-11-05] MEDS: Acetaminophen 325 MG TAB PO PRN ×2 (06:04→15:15)
[2016-11-05] MEDS: Saccharomyces boulardii 250 MG CAP PO SCH (08:43)
[2016-11-05] MEDS: Multivit, Therapeutic 1 TAB PO SCH (08:43)
[2016-11-05] MEDS: Senokot S 8.6-50 MG TAB PO SCH ×2 (08:43→20:45)
[2016-11-05] MEDS: Docusate 100 MG CAP PO SCH (08:43)
[2016-11-05] MEDS: predniSONE 20 MG TAB PO SCH (08:44)
[2016-11-05] MEDS: Aspirin 81 mg Enteric Coated Tablet PO SCH (08:44)
[2016-11-05] MEDS: Furosemide 20 MG TAB PO SCH (08:44)
[2016-11-05] MEDS: guaiFENesin ER 600 MG TAB PO SCH ×2 (08:44→20:46)
[2016-11-05] MEDS: Sotalol HCl 80 MG TAB PO SCH ×2 (08:44→20:46)
--- NOTE | 2016-11-05 11:27 | PRG ---
DATE OF SERVICE: 11/05/2016 SUBJECTIVE: The patient said he is doing pretty good today. He said he slept good last night. He has already been out for a walk this morning and he is doing a little better with this. He said he has not had any trouble with his swallowing recently. He has had still a little trouble with consti chitra. His Senokot S was increased to 2 b.i.d. yesterday and he is using the Milk of Magnesia if needed. OBJECTIVE: The patient is lying in bed with the head elevated. He is alert and appears comfortable and in good spirits, in no distress. His temp 98.2, pulse 70, respirations 20, O2 sat 96%, blood p ressure 132/66. His lungs have some expiratory rhonchi and mild wheeze, but very good breath sounds . There are no rales. Heart; regular rate. Extremities, no edema. ASSESSMENT: 1. Generalized weakness and deconditioning, followed two hospitalization first from 08/31/2016 to 09/06/2016 and the second from 09/17/2016 until 09/24/2016, both for acute exacerbations of his COPD with respiratory failure and atrial fibrillation. A. Gradual continual improvement as of 11/05/2016. 2. Recent hospitalizations from 09/17/2016 until 09/24/2016 for: A. Acute exacerbation of chronic obstructive pulmonary disease with respiratory failure with atelectasis of the right lower lobe from severe tracheobronchitis requiring bronchoscopy. B. Recent cardioversion from atrial fibrillation to normal sinus rhythm on 09/03/2016 and remai ns in sinus rhythm. C. Replacement of biventricular ICD pacemaker on 09/23/2016. D. Bronchoscopy on 09/20/2016 for right lower lobe atelectasis with removal of extensive pus co mpletely occluding the right lower lobe with no endobronchial lesion and culture growing Swapna. 3. Coronary artery disease. A. Status post stent placement, right coronary artery in 2002. B. Status post aortic single vessel aortic valve bypass with aortic valve replacement in 2009. C. Stable as of 11/05/2016. 4. Aortic stenosis. A. Status post aortic valve replacement with a bovina bioprosthetic valve in 2009. 5. Nonischemic cardiomyopathy. A. Required initial biventricular ICD in 2005, generator replaced 2010 and again generator repl aced on 09/23/2016. B. Echocardiogram on 09/01/2016 showed an LV ejection fraction of 50-55%, normal functioning ao rtic valve prosthesis, bioprosthetic. C. Mild diastolic congestive heart failure, clinically resolved as of 10/04/2016. D. No evidence of acute congestive heart failure as of 11/05/2016. 6. Severe chronic obstructive pulmonary disease complicated by chronic hypoxemia requiring suppleme ntal O2. A. Complicated by some increased cough, sputum production and shortness of breath from a mild a cute exacerbation of his chronic obstructive pulmonary disease as of 10/13/2016. A1. Resolved as of 10/25/2016. B. Complicated by chronic linear streaking or opacification right middle lung, that I suspect represents either scarring and/or atelectasis as of 10/13/2016. C. Stable with improved exercise tolerance as of 11/05/2016. 7. Hypertension. 8. Hyperlipidemia. 9. Obstructive sleep apnea for which he uses a CPAP. 10. Constipation. 11. Depression and anxiety. A. Controlled as of 11/05/2016. 12. Atrial fibrillation, paroxysmal. A. Status post cardioversion on 09/03/2016. B. Remains in sinus rhythm as of 09/24/2016. C. Anticoagulants being held due to right abdominal rectus muscle hematoma. 13. Oral candidiasis. A. Resolved as of 10/04/2016. 14. Insomnia. A. Controlled as of 10/11/2016. 15. Anorexia. A. Resolved as of 10/25/2016. 16. Dysphagia. A. Stable and doing well on mechanical soft diet as of 11/03/2016. PLAN: Continue present care. Continue physical therapy. Continue the Senokot S b.i.d. This was ju st increased yesterday and feel like this will help with his constipation symptoms. He has got the Milk of Magnesia to fall back on if necessary.
[2016-11-05] MEDS: Mirtazapine 30 MG Soltab PO SCH (20:45)
[2016-11-05] MEDS: Melatonin 3 MG TAB PO SCH (20:45)
[2016-11-05] MEDS: Pravastatin Sodium 20 MG TAB PO SCH (20:45)
[2016-11-06] MEDS: Mometasone/Formoterol 60 PUFF AER INH SCH ×2 (06:10→18:10)
[2016-11-06] MEDS: predniSONE 20 MG TAB PO SCH (08:45)
[2016-11-06] MEDS: Docusate 100 MG CAP PO SCH (08:46)
[2016-11-06] MEDS: Aspirin 81 mg Enteric Coated Tablet PO SCH (08:46)
[2016-11-06] MEDS: Furosemide 20 MG TAB PO SCH (08:47)
[2016-11-06] MEDS: guaiFENesin ER 600 MG TAB PO SCH ×2 (08:47→20:42)
[2016-11-06] MEDS: Multivit, Therapeutic 1 TAB PO SCH (08:47)
[2016-11-06] MEDS: Sotalol HCl 80 MG TAB PO SCH ×2 (08:48→20:42)
[2016-11-06] MEDS: Saccharomyces boulardii 250 MG CAP PO SCH (08:48)
[2016-11-06] MEDS: Senokot S 8.6-50 MG TAB PO SCH ×2 (08:48→20:42)
[2016-11-06] MEDS: Acetaminophen 325 MG TAB PO PRN (16:09)
[2016-11-06] MEDS: Pravastatin Sodium 20 MG TAB PO SCH (20:42)
[2016-11-06] MEDS: Melatonin 3 MG TAB PO SCH (20:42)
[2016-11-06] MEDS: Mirtazapine 30 MG Soltab PO SCH (20:42)
[2016-11-07] MEDS: Mometasone/Formoterol 60 PUFF AER INH SCH ×2 (06:07→18:31)
[2016-11-07] MEDS: Acetaminophen 325 MG TAB PO PRN (08:20)
[2016-11-07] MEDS: Senokot S 8.6-50 MG TAB PO SCH ×2 (08:20→20:04)
[2016-11-07] MEDS: Docusate 100 MG CAP PO SCH (08:20)
[2016-11-07] MEDS: Sotalol HCl 80 MG TAB PO SCH ×2 (08:21→20:04)
[2016-11-07] MEDS: Multivit, Therapeutic 1 TAB PO SCH (08:21)
[2016-11-07] MEDS: Saccharomyces boulardii 250 MG CAP PO SCH (08:21)
[2016-11-07] MEDS: predniSONE 20 MG TAB PO SCH (08:21)
[2016-11-07] MEDS: guaiFENesin ER 600 MG TAB PO SCH ×2 (08:21→20:03)
[2016-11-07] MEDS: Furosemide 20 MG TAB PO SCH (08:22)
[2016-11-07] MEDS: Aspirin 81 mg Enteric Coated Tablet PO SCH (08:22)
[2016-11-07 12:18] LABS: Bilirubin Negative (Negative); Blood, Urine Negative (Negative); Clarity Clear (Clear); Glucose, Urine (Dipstick) Negative (Negative); Leukocyte Negative (Negative); Nitrite Negative (Negative); Protein, Urine (Dipstick) Negative (Neg-Trace); Urobilinogen 0.2 mg/dL (0.2-1.0)
[2016-11-07 12:20] LABS: Bacteria/HPF None Seen HPF (None Seen); RBC/HPF 0-3 HPF (0-3); Squamous Epithelial 0-3 HPF (0-3); WBC/HPF None Seen HPF (0-3)
--- NOTE | 2016-11-07 14:53 | PRG ---
DATE OF SERVICE: 11/07/2016 SUBJECTIVE: Nurse said that the patient said he just would not feeling good. He complained of not feeling like to get cleaned up. He said he had just little trouble, little hesitation of urination, but later at all came. Nurse said he voided fine in the urine. He denies any dysuria. Presently, patient said he just feels a little more tired today, just have a little trouble urinating, but see ms to be fine now. He said just more tired than usual. Breathing is about the same. OBJECTIVE: GENERAL: The patient is lying in bed. He is alert, appears comfortable, does not appear in any acu te distress. VITAL SIGNS: His temperature is 97.9, his pulse is 80, respirations 20, O2 saturation 97% on 2 lite rs, blood pressure 132/80. LUNGS: Are clear with good breath sounds with some mild wheeze on expiration, which are not uncommo n for him. Overall, the lung sound very good for him. HEART: Regular rate. EXTREMITIES: No edema. ABDOMEN: Soft, no organomegaly, nor areas of tenderness. Urinalysis was done on 11/03 that was normal. We will repeat this. ASSESSMENT: 1. Generalized weakness and deconditioning, followed two hospitalization first from 08/31/2016 to 09/06/2016 and the second from 09/17/2016 until 09/24/2016, both for acute exacerbations of his COPD with respiratory failure and atrial fibrillation. A. Stable as of 11/07/2016. 2. Recent hospitalizations from 09/17/2016 until 09/24/2016 for: A. Acute exacerbation of chronic obstructive pulmonary disease with respiratory failure with atelectasis of the right lower lobe from severe tracheobronchitis requiring bronchoscopy. B. Recent cardioversion from atrial fibrillation to normal sinus rhythm on 09/03/2016 and remai ns in sinus rhythm. C. Replacement of biventricular ICD pacemaker on 09/23/2016. D. Bronchoscopy on 09/20/2016 for right lower lobe atelectasis with removal of extensive pus co mpletely occluding the right lower lobe with no endobronchial lesion and culture growing Swapna. 3. Coronary artery disease. A. Status post stent placement, right coronary artery in 2002. B. Status post aortic single vessel aortic valve bypass with aortic valve replacement in 2009. C. Stable as of 11/07/2016. 4. Aortic stenosis. A. Status post aortic valve replacement with a bovina bioprosthetic valve in 2009. 5. Nonischemic cardiomyopathy. A. Required initial biventricular ICD in 2005, generator replaced 2010 and again generator repl aced on 09/23/2016. B. Echocardiogram on 09/01/2016 showed an LV ejection fraction of 50-55%, normal functioning ao rtic valve prosthesis, bioprosthetic. C. Mild diastolic congestive heart failure, clinically resolved as of 10/04/2016. D. No evidence of acute congestive heart failure as of 11/07/2016. 6. Severe chronic obstructive pulmonary disease complicated by chronic hypoxemia requiring suppleme ntal O2. A. Complicated by some increased cough, sputum production and shortness of breath from a mild a cute exacerbation of his chronic obstructive pulmonary disease as of 10/13/2016. 1. Resolved as of 10/25/2016. B. Complicated by chronic linear streaking or opacification right middle lung, that I suspect represents either scarring and/or atelectasis as of 10/13/2016. C. Stable with gradual improvement in exercise tolerance as of 11/07/2016. 7. Hypertension. 8. Hyperlipidemia. 9. Obstructive sleep apnea for which he uses a CPAP. 10. Constipation. 11. Depression and anxiety. A. Controlled as of 11/05/2016. 12. Atrial fibrillation, paroxysmal. A. Status post cardioversion on 09/03/2016. B. Remains in sinus rhythm as of 09/24/2016. C. Anticoagulants being held due to right abdominal rectus muscle hematoma. 13. Oral candidiasis. A. Resolved as of 10/04/2016. 14. Insomnia. A. Controlled as of 10/11/2016. 15. Anorexia. A. Resolved as of 10/25/2016. 16. Dysphagia. A. Stable and doing well on mechanical soft diet as of 11/03/2016. PLAN: Today. patient just did not feel well. There was nothing very specific. We will recheck uri ne since he had just a little bit of trouble there. Most recent urinalysis on 11/03 was normal. Hi s examination is unchanged. The patient will rest today and nurses will continue to observe him melodie orrow. We will try to encourage to get back into his physical therapy.
[2016-11-07] MEDS: Melatonin 3 MG TAB PO SCH (20:03)
[2016-11-07] MEDS: Mirtazapine 30 MG Soltab PO SCH (20:03)
[2016-11-07] MEDS: Pravastatin Sodium 20 MG TAB PO SCH (20:03)
[2016-11-08] MEDS: Mometasone/Formoterol 60 PUFF AER INH SCH ×2 (05:51→18:20)
[2016-11-08] MEDS: Sotalol HCl 80 MG TAB PO SCH ×2 (08:34→21:11)
[2016-11-08] MEDS: Saccharomyces boulardii 250 MG CAP PO SCH (08:34)
[2016-11-08] MEDS: predniSONE 20 MG TAB PO SCH (08:35)
[2016-11-08] MEDS: guaiFENesin ER 600 MG TAB PO SCH ×2 (08:35→21:10)
[2016-11-08] MEDS: Multivit, Therapeutic 1 TAB PO SCH (08:35)
[2016-11-08] MEDS: Docusate 100 MG CAP PO SCH (08:35)
[2016-11-08] MEDS: Senokot S 8.6-50 MG TAB PO SCH ×2 (08:35→21:12)
[2016-11-08] MEDS: Aspirin 81 mg Enteric Coated Tablet PO SCH (08:36)
[2016-11-08] MEDS: Furosemide 20 MG TAB PO SCH (08:36)
--- NOTE | 2016-11-08 08:53 | PRG ---
DATE OF SERVICE: 11/08/2016 SUBJECTIVE: The patient said he is feeling okay this morning. Slept okay. He said his breathing i s doing okay. He said he may have to take some Milk of Magnesia this morning. The patient is not h aving trouble urinating. OBJECTIVE: GENERAL: The patient is sitting up in a chair, preparing to eat breakfast. He is alert and appears in no acute distress. VITAL SIGNS: His temperature is 97.3, pulse 70, respirations 20, O2 sat 92% on 2 liters, blood pres sure 114/75. LUNGS: Have some very faint wheeze intermittently on forced expiration. There are some coarse rale s at the right posterior base. Clear on deep inspiration. HEART: Regular rate. EXTREMITIES: No edema. ASSESSMENT: Please type the assessment from 11/07/2016. 1. A. Change the date to 11/08/2016. 3. C. Change the date to 11/08/2016. 5. D. Change the date to 11/08/2016. 6. C. Change the date to 11/08/2016. PLAN: The patient looks a little better this morning. No significant change from yesterday. We wi ll continue physical therapy.
[2016-11-08] MEDS: Melatonin 3 MG TAB PO SCH (21:11)
[2016-11-08] MEDS: Pravastatin Sodium 20 MG TAB PO SCH (21:11)
[2016-11-08] MEDS: Mirtazapine 30 MG Soltab PO SCH (21:12)
[2016-11-09] MEDS: Mometasone/Formoterol 60 PUFF AER INH SCH ×2 (05:43→18:24)
[2016-11-09] MEDS: predniSONE 20 MG TAB PO SCH (08:06)
[2016-11-09] MEDS: Senokot S 8.6-50 MG TAB PO SCH ×2 (08:08→20:27)
[2016-11-09] MEDS: Docusate 100 MG CAP PO SCH (08:08)
[2016-11-09] MEDS: Furosemide 20 MG TAB PO SCH (08:08)
[2016-11-09] MEDS: Aspirin 81 mg Enteric Coated Tablet PO SCH (08:08)
[2016-11-09] MEDS: guaiFENesin ER 600 MG TAB PO SCH ×2 (08:09→20:26)
[2016-11-09] MEDS: Saccharomyces boulardii 250 MG CAP PO SCH (08:09)
[2016-11-09] MEDS: Sotalol HCl 80 MG TAB PO SCH ×2 (08:09→20:29)
[2016-11-09] MEDS: Multivit, Therapeutic 1 TAB PO SCH (08:09)
[2016-11-09] MEDS: Acetaminophen 325 MG TAB PO PRN (19:07)
[2016-11-09] MEDS: Pravastatin Sodium 20 MG TAB PO SCH (20:28)
[2016-11-09] MEDS: Melatonin 3 MG TAB PO SCH (20:28)
[2016-11-09] MEDS: Mirtazapine 30 MG Soltab PO SCH (20:35)
[2016-11-10] MEDS: Mometasone/Formoterol 60 PUFF AER INH SCH ×2 (06:04→18:16)
[2016-11-10] MEDS: Acetaminophen 325 MG TAB PO PRN (09:04)
[2016-11-10] MEDS: Docusate 100 MG CAP PO SCH (09:04)
[2016-11-10] MEDS: Multivit, Therapeutic 1 TAB PO SCH (09:05)
[2016-11-10] MEDS: guaiFENesin ER 600 MG TAB PO SCH ×2 (09:05→20:15)
[2016-11-10] MEDS: Furosemide 20 MG TAB PO SCH (09:05)
[2016-11-10] MEDS: Senokot S 8.6-50 MG TAB PO SCH ×2 (09:05→20:16)
[2016-11-10] MEDS: Sotalol HCl 80 MG TAB PO SCH ×2 (09:05→20:17)
[2016-11-10] MEDS: Aspirin 81 mg Enteric Coated Tablet PO SCH (09:05)
[2016-11-10] MEDS: predniSONE 20 MG TAB PO SCH (09:06)
[2016-11-10] MEDS: Saccharomyces boulardii 250 MG CAP PO SCH (09:06)
--- NOTE | 2016-11-10 10:09 | PRG ---
DATE OF SERVICE: 11/10/2016 SUBJECTIVE: The patient said he is feeling a little better today. His breathing is doing okay. Ye sterday, he was able to walk the length of the hallway. He says his appetite has been good. His reginald wels have been working well. OBJECTIVE: The patient is sitting up in a bedside chair. He is alert, eating his breakfast. He ap pears comfortable in no distress. His vital signs show a temperature is 98.6, pulse 73, respiration s 20, O2 saturation 94% on 2 liters, blood pressure 112/71. Lungs are clear. Earlier he had just s ome mild wheezes, but those have resolved on just normal respiration. Heart, regular rate. Extremi ties, no edema. ASSESSMENT: 1. Generalized weakness and deconditioning, followed two hospitalization first from 08/31/2016 to 09/06/2016 and the second from 09/17/2016 until 09/24/2016, both for acute exacerbations of his COPD with respiratory failure and atrial fibrillation. A. Continued improvement as of 11/10/2016. 2. Recent hospitalizations from 09/17/2016 until 09/24/2016 for: A. Acute exacerbation of chronic obstructive pulmonary disease with respiratory failure with atelectasis of the right lower lobe from severe tracheobronchitis requiring bronchoscopy. B. Recent cardioversion from atrial fibrillation to normal sinus rhythm on 09/03/2016 and remai ns in sinus rhythm. C. Replacement of biventricular ICD pacemaker on 09/23/2016. D. Bronchoscopy on 09/20/2016 for right lower lobe atelectasis with removal of extensive pus co mpletely occluding the right lower lobe with no endobronchial lesion and culture growing Swapna. 3. Coronary artery disease. A. Status post stent placement, right coronary artery in 2002. B. Status post aortic single vessel aortic valve bypass with aortic valve replacement in 2009. C. Stable as of 11/10/2016. 4. Aortic stenosis. A. Status post aortic valve replacement with a bovina bioprosthetic valve in 2009. 5. Nonischemic cardiomyopathy. A. Required initial biventricular ICD in 2005, generator replaced 2010 and again generator repl aced on 09/23/2016. B. Echocardiogram on 09/01/2016 showed an LV ejection fraction of 50-55%, normal functioning ao rtic valve prosthesis, bioprosthetic. C. Mild diastolic congestive heart failure, clinically resolved as of 10/04/2016. D. No evidence of acute congestive heart failure as of 11/10/2016. 6. Severe chronic obstructive pulmonary disease complicated by chronic hypoxemia requiring suppleme ntal O2. A. Complicated by some increased cough, sputum production and shortness of breath from a mild a cute exacerbation of his chronic obstructive pulmonary disease as of 10/13/2016. 1. Resolved as of 10/25/2016. B. Complicated by chronic linear streaking or opacification right middle lung, that I suspect represents either scarring and/or atelectasis as of 10/13/2016. C. Stable as of 11/10/2016. 7. Hypertension. 8. Hyperlipidemia. 9. Obstructive sleep apnea for which he uses a CPAP. 10. Constipation. A. Controlled as of 11/10/2016. 11. Depression and anxiety. A. Controlled as of 11/10/2016. 12. Atrial fibrillation, paroxysmal. A. Status post cardioversion on 09/03/2016. B. Remains in sinus rhythm as of 09/24/2016. C. Anticoagulants being held due to right abdominal rectus muscle hematoma. 13. Oral candidiasis. A. Resolved as of 10/04/2016. 14. Insomnia. A. Controlled as of 10/11/2016. 15. Anorexia. A. Resolved as of 10/25/2016. 16. Dysphagia. A. Stable and doing well on mechanical soft diet as of 11/03/2016. PLAN: Continue present care. Continue physical therapy.
[2016-11-10] MEDS: Guaifenesin DM 100-10/5 ML UDCUP PO PRN (18:20)
[2016-11-10] MEDS: Pravastatin Sodium 20 MG TAB PO SCH (20:17)
[2016-11-10] MEDS: Melatonin 3 MG TAB PO SCH (20:18)
[2016-11-10] MEDS: Mirtazapine 30 MG Soltab PO SCH (20:20)
[2016-11-11] MEDS: Mometasone/Formoterol 60 PUFF AER INH SCH ×2 (05:45→19:05)
[2016-11-11] MEDS: predniSONE 20 MG TAB PO SCH (08:46)
[2016-11-11] MEDS: Saccharomyces boulardii 250 MG CAP PO SCH (08:47)
[2016-11-11] MEDS: guaiFENesin ER 600 MG TAB PO SCH ×2 (08:47→20:19)
[2016-11-11] MEDS: Multivit, Therapeutic 1 TAB PO SCH (08:47)
[2016-11-11] MEDS: Sotalol HCl 80 MG TAB PO SCH ×2 (08:47→20:20)
[2016-11-11] MEDS: Docusate 100 MG CAP PO SCH (08:47)
[2016-11-11] MEDS: Furosemide 20 MG TAB PO SCH (08:47)
[2016-11-11] MEDS: Senokot S 8.6-50 MG TAB PO SCH ×2 (08:48→20:21)
[2016-11-11] MEDS: Aspirin 81 mg Enteric Coated Tablet PO SCH (08:48)
[2016-11-11] MEDS: Melatonin 3 MG TAB PO SCH (20:20)
[2016-11-11] MEDS: Pravastatin Sodium 20 MG TAB PO SCH (20:20)
[2016-11-11] MEDS: Mirtazapine 30 MG Soltab PO SCH (20:20)
[2016-11-12] MEDS: Mometasone/Formoterol 60 PUFF AER INH SCH ×2 (06:09→19:00)
[2016-11-12] MEDS: Senokot S 8.6-50 MG TAB PO SCH ×2 (08:15→20:43)
[2016-11-12] MEDS: Furosemide 20 MG TAB PO SCH (08:15)
[2016-11-12] MEDS: Multivit, Therapeutic 1 TAB PO SCH (08:15)
[2016-11-12] MEDS: guaiFENesin ER 600 MG TAB PO SCH ×2 (08:16→20:42)
[2016-11-12] MEDS: Aspirin 81 mg Enteric Coated Tablet PO SCH (08:16)
[2016-11-12] MEDS: predniSONE 20 MG TAB PO SCH (08:16)
[2016-11-12] MEDS: Saccharomyces boulardii 250 MG CAP PO SCH (08:16)
[2016-11-12] MEDS: Sotalol HCl 80 MG TAB PO SCH ×2 (08:16→20:43)
[2016-11-12] MEDS: Docusate 100 MG CAP PO SCH (08:17)
--- NOTE | 2016-11-12 10:27 | PRG ---
DATE OF SERVICE: 11/12/2016 SUBJECTIVE: The patient said that he had a good night, but this morning he is not feeling as well. He said he is coughing a little bit more than usual. He is more short of breath. The therapist id that he gave out much quicker than usual due to shortness of breath with the walking. OBJECTIVE: The patient is sitting up in his bedside chair shaving. He is alert and appears mildly short of breath, but in no distress. His temperature is 98, pulse 70, respirations 20, O2 sat 96% o n 2 liters, blood pressure 124/78. His lungs have good breath sounds, but have increased expiratory wheezes. There are no rales. Heart; regular rate. Extremities; no edema. ASSESSMENT: 1. Generalized weakness and deconditioning, followed two hospitalization first from 08/31/2016 to 09/06/2016 and the second from 09/17/2016 until 09/24/2016, both for acute exacerbations of his COPD with respiratory failure and atrial fibrillation. A. Patient has been making good improvement, but today his breathing limited his usual exertion as of 11/12/2016. 2. Recent hospitalizations from 09/17/2016 until 09/24/2016 for: A. Acute exacerbation of chronic obstructive pulmonary disease with respiratory failure with atelectasis of the right lower lobe from severe tracheobronchitis requiring bronchoscopy. B. Recent cardioversion from atrial fibrillation to normal sinus rhythm on 09/03/2016 and remai ns in sinus rhythm. C. Replacement of biventricular ICD pacemaker on 09/23/2016. D. Bronchoscopy on 09/20/2016 for right lower lobe atelectasis with removal of extensive pus co mpletely occluding the right lower lobe with no endobronchial lesion and culture growing Swapna. 3. Coronary artery disease. A. Status post stent placement, right coronary artery in 2002. B. Status post aortic single vessel aortic valve bypass with aortic valve replacement in 2009. C. Stable as of 11/12/2016. 4. Aortic stenosis. A. Status post aortic valve replacement with a bovina bioprosthetic valve in 2009. 5. Nonischemic cardiomyopathy. A. Required initial biventricular ICD in 2005, generator replaced 2010 and again generator repl aced on 09/23/2016. B. Echocardiogram on 09/01/2016 showed an LV ejection fraction of 50-55%, normal functioning ao rtic valve prosthesis, bioprosthetic. C. Mild diastolic congestive heart failure, clinically resolved as of 10/04/2016. D. No evidence of acute congestive heart failure as of 11/12/2016. 6. Severe chronic obstructive pulmonary disease complicated by chronic hypoxemia requiring suppleme ntal O2. A. Complicated by some increased cough, sputum production and shortness of breath from a mild a cute exacerbation of his chronic obstructive pulmonary disease as of 10/13/2016. 1. Resolved as of 10/25/2016. B. Complicated by chronic linear streaking or opacification right middle lung, that I suspect represents either scarring and/or atelectasis as of 10/13/2016. C. Mild acute exacerbation as of 11/12/2016 manifest with increased wheezing and increased coug h and shortness of breath, particularly with exertion. 7. Hypertension. 8. Hyperlipidemia. 9. Obstructive sleep apnea for which he uses a CPAP. 10. Constipation. A. Controlled as of 11/10/2016. 11. Depression and anxiety. A. Controlled as of 11/10/2016. 12. Atrial fibrillation, paroxysmal. A. Status post cardioversion on 09/03/2016. B. Remains in sinus rhythm as of 09/24/2016. C. Anticoagulants being held due to right abdominal rectus muscle hematoma. 13. Oral candidiasis. A. Resolved as of 10/04/2016. 14. Insomnia. A. Controlled as of 10/11/2016. 15. Anorexia. A. Resolved as of 10/25/2016. 16. Dysphagia. A. Stable and doing well on mechanical soft diet as of 11/03/2016. PLAN: We will bump the patient's prednisone from his daily dose of 10 mg to 40 mg and after 3 days of this we will begin tapering. We will place the patient on a course of antibiotics and continue t herapy within his capabilities.
[2016-11-12] MEDS: Cefdinir 300 MG CAP PO SCH (20:42)
[2016-11-12] MEDS: Melatonin 3 MG TAB PO SCH (20:42)
[2016-11-12] MEDS: Pravastatin Sodium 20 MG TAB PO SCH (20:43)
[2016-11-12] MEDS: Mirtazapine 30 MG Soltab PO SCH (20:43)
[2016-11-12] MEDS: Guaifenesin DM 100-10/5 ML UDCUP PO PRN (23:36)
[2016-11-13] MEDS: Mometasone/Formoterol 60 PUFF AER INH SCH ×2 (06:08→18:12)
[2016-11-13] MEDS: predniSONE 20 MG TAB PO SCH (08:45)
[2016-11-13] MEDS: Senokot S 8.6-50 MG TAB PO SCH ×2 (08:45→20:15)
[2016-11-13] MEDS: Cefdinir 300 MG CAP PO SCH ×2 (08:45→20:14)
[2016-11-13] MEDS: Docusate 100 MG CAP PO SCH (08:46)
[2016-11-13] MEDS: guaiFENesin ER 600 MG TAB PO SCH ×2 (08:46→20:13)
[2016-11-13] MEDS: Saccharomyces boulardii 250 MG CAP PO SCH (08:46)
[2016-11-13] MEDS: Furosemide 20 MG TAB PO SCH (08:46)
[2016-11-13] MEDS: Sotalol HCl 80 MG TAB PO SCH ×2 (08:46→20:14)
[2016-11-13] MEDS: Multivit, Therapeutic 1 TAB PO SCH (08:46)
[2016-11-13] MEDS: Aspirin 81 mg Enteric Coated Tablet PO SCH (08:46)
[2016-11-13] MEDS: Guaifenesin DM 100-10/5 ML UDCUP PO PRN (18:11)
[2016-11-13] MEDS: Mirtazapine 30 MG Soltab PO SCH (20:14)
[2016-11-13] MEDS: Melatonin 3 MG TAB PO SCH (20:14)
[2016-11-13] MEDS: Pravastatin Sodium 20 MG TAB PO SCH (20:14)
[2016-11-14] MEDS: Mometasone/Formoterol 60 PUFF AER INH SCH ×2 (06:00→17:53)
[2016-11-14] MEDS: Furosemide 20 MG TAB PO SCH (08:31)
[2016-11-14] MEDS: predniSONE 20 MG TAB PO SCH (08:31)
[2016-11-14] MEDS: guaiFENesin ER 600 MG TAB PO SCH ×2 (08:32→20:18)
[2016-11-14] MEDS: Cefdinir 300 MG CAP PO SCH ×2 (08:32→20:17)
[2016-11-14] MEDS: Sotalol HCl 80 MG TAB PO SCH ×2 (08:32→20:20)
[2016-11-14] MEDS: Saccharomyces boulardii 250 MG CAP PO SCH (08:32)
[2016-11-14] MEDS: Docusate 100 MG CAP PO SCH (08:32)
[2016-11-14] MEDS: Senokot S 8.6-50 MG TAB PO SCH ×2 (08:32→20:18)
[2016-11-14] MEDS: Multivit, Therapeutic 1 TAB PO SCH (08:33)
[2016-11-14] MEDS: Aspirin 81 mg Enteric Coated Tablet PO SCH (08:33)
[2016-11-14] MEDS: Guaifenesin DM 100-10/5 ML UDCUP PO PRN (17:52)
[2016-11-14] MEDS: Melatonin 3 MG TAB PO SCH (20:19)
[2016-11-14] MEDS: Pravastatin Sodium 20 MG TAB PO SCH (20:19)
[2016-11-14] MEDS: Mirtazapine 30 MG Soltab PO SCH (20:20)
[2016-11-15] MEDS: Mometasone/Formoterol 60 PUFF AER INH SCH ×2 (06:01→18:05)
[2016-11-15] MEDS: Cefdinir 300 MG CAP PO SCH ×2 (08:09→20:31)
[2016-11-15] MEDS: Multivit, Therapeutic 1 TAB PO SCH (08:09)
[2016-11-15] MEDS: Aspirin 81 mg Enteric Coated Tablet PO SCH (08:10)
[2016-11-15] MEDS: Docusate 100 MG CAP PO SCH (08:10)
[2016-11-15] MEDS: Furosemide 20 MG TAB PO SCH (08:10)
[2016-11-15] MEDS: Senokot S 8.6-50 MG TAB PO SCH ×3 (08:10→20:37)
[2016-11-15] MEDS: Saccharomyces boulardii 250 MG CAP PO SCH (08:10)
[2016-11-15] MEDS: Sotalol HCl 80 MG TAB PO SCH ×2 (08:11→20:31)
[2016-11-15] MEDS: predniSONE 20 MG TAB PO SCH (08:11)
[2016-11-15] MEDS: guaiFENesin ER 600 MG TAB PO SCH ×2 (08:11→20:32)
--- NOTE | 2016-11-15 08:54 | PRG ---
DATE OF SERVICE: 11/15/2016 SUBJECTIVE: The patient said he slept good last night. He has not had any trouble with his breathi ng, he is not coughing. OBJECTIVE: The patient is lying in bed, alert, appears comfortable and in no distress. Temp 98, pu lse 73, respirations 20, O2 saturation 97% on 2 liters, blood pressure 121/73. Lungs are clear. He art, regular rate. Extremities, no edema. ASSESSMENT: 1. Generalized weakness and deconditioning, followed two hospitalization first from 08/31/2016 to 09/06/2016 and the second from 09/17/2016 until 09/24/2016, both for acute exacerbations of his COPD with respiratory failure and atrial fibrillation. A. Gradual improvement as of 11/15/2016. 2. Recent hospitalizations from 09/17/2016 until 09/24/2016 for: A. Acute exacerbation of chronic obstructive pulmonary disease with respiratory failure with atelectasis of the right lower lobe from severe tracheobronchitis requiring bronchoscopy. B. Recent cardioversion from atrial fibrillation to normal sinus rhythm on 09/03/2016 and remai ns in sinus rhythm. C. Replacement of biventricular ICD pacemaker on 09/23/2016. D. Bronchoscopy on 09/20/2016 for right lower lobe atelectasis with removal of extensive pus co mpletely occluding the right lower lobe with no endobronchial lesion and culture growing Swapna. 3. Coronary artery disease. A. Status post stent placement, right coronary artery in 2002. B. Status post aortic single vessel aortic valve bypass with aortic valve replacement in 2009. C. Stable as of 11/15/2016. 4. Aortic stenosis. A. Status post aortic valve replacement with a bovina bioprosthetic valve in 2009. 5. Nonischemic cardiomyopathy. A. Required initial biventricular ICD in 2005, generator replaced 2010 and again generator repl aced on 09/23/2016. B. Echocardiogram on 09/01/2016 showed an LV ejection fraction of 50-55%, normal functioning ao rtic valve prosthesis, bioprosthetic. C. Mild diastolic congestive heart failure, clinically resolved as of 10/04/2016. Improved as of 11/15/16. D. No evidence of acute congestive heart failure as of 11/15/2016. 6. Severe chronic obstructive pulmonary disease complicated by chronic hypoxemia requiring suppleme ntal O2. A. Complicated by some increased cough, sputum production and shortness of breath from a mild a cute exacerbation of his chronic obstructive pulmonary disease as of 10/13/2016. 1. Resolved as of 10/25/2016. B. Complicated by chronic linear streaking or opacification right middle lung, that I suspect represents either scarring and/or atelectasis as of 10/13/2016. C. Mild acute exacerbation as of 11/12/2016 manifest with increased wheezing and increased coug h and shortness of breath, particularly with exertion. 7. Hypertension. 8. Hyperlipidemia. 9. Obstructive sleep apnea for which he uses a CPAP. 10. Constipation. A. Controlled as of 11/10/2016. 11. Depression and anxiety. A. Controlled as of 11/10/2016. 12. Atrial fibrillation, paroxysmal. A. Status post cardioversion on 09/03/2016. B. Remains in sinus rhythm as of 09/24/2016. C. Anticoagulants being held due to right abdominal rectus muscle hematoma. 13. Oral candidiasis. A. Resolved as of 10/04/2016. 14. Insomnia. A. Controlled as of 10/11/2016. 15. Anorexia. A. Resolved as of 10/25/2016. 16. Dysphagia. A. Stable and doing well on mechanical soft diet as of 11/03/2016. PLAN: I will reduce the prednisone to 20 mg a day for 3 days and then go back to his 10 mg a day. We will complete the 10-day course of Cefdinir.
[2016-11-15] MEDS: Guaifenesin DM 100-10/5 ML UDCUP PO PRN (12:46)
[2016-11-15] MEDS: Melatonin 3 MG TAB PO SCH (20:32)
[2016-11-15] MEDS: Mirtazapine 30 MG Soltab PO SCH (20:32)
[2016-11-15] MEDS: Pravastatin Sodium 20 MG TAB PO SCH (20:53)
[2016-11-16] MEDS: Mometasone/Formoterol 60 PUFF AER INH SCH ×2 (06:07→18:37)
[2016-11-16] MEDS: Multivit, Therapeutic 1 TAB PO SCH (09:04)
[2016-11-16] MEDS: Saccharomyces boulardii 250 MG CAP PO SCH (09:04)
[2016-11-16] MEDS: Furosemide 20 MG TAB PO SCH (09:05)
[2016-11-16] MEDS: Aspirin 81 mg Enteric Coated Tablet PO SCH (09:05)
[2016-11-16] MEDS: Sotalol HCl 80 MG TAB PO SCH ×2 (09:05→20:23)
[2016-11-16] MEDS: predniSONE 20 MG TAB PO SCH (09:05)
[2016-11-16] MEDS: guaiFENesin ER 600 MG TAB PO SCH ×2 (09:05→20:22)
[2016-11-16] MEDS: Cefdinir 300 MG CAP PO SCH ×2 (09:05→20:22)
[2016-11-16] MEDS: Docusate 100 MG CAP PO SCH (09:05)
[2016-11-16] MEDS: Guaifenesin DM 100-10/5 ML UDCUP PO PRN (09:09)
[2016-11-16] MEDS: Senokot S 8.6-50 MG TAB PO SCH (09:16)
[2016-11-16] MEDS: Pravastatin Sodium 20 MG TAB PO SCH (20:22)
[2016-11-16] MEDS: Mirtazapine 30 MG Soltab PO SCH (20:22)
[2016-11-16] MEDS: Melatonin 3 MG TAB PO SCH (20:22)
[2016-11-17] MEDS: Mometasone/Formoterol 60 PUFF AER INH SCH ×2 (06:09→17:52)
[2016-11-17] MEDS: Saccharomyces boulardii 250 MG CAP PO SCH (08:36)
[2016-11-17] MEDS: Aspirin 81 mg Enteric Coated Tablet PO SCH (08:36)
[2016-11-17] MEDS: Furosemide 20 MG TAB PO SCH (08:36)
[2016-11-17] MEDS: Multivit, Therapeutic 1 TAB PO SCH (08:36)
[2016-11-17] MEDS: Nystatin 500,000 UNITS/5 ML UDCUP SSW SCH ×4 (08:36→20:45)
[2016-11-17] MEDS: Sotalol HCl 80 MG TAB PO SCH ×2 (08:36→20:45)
[2016-11-17] MEDS: Docusate 100 MG CAP PO SCH (08:37)
[2016-11-17] MEDS: guaiFENesin ER 600 MG TAB PO SCH ×2 (08:37→20:44)
[2016-11-17] MEDS: predniSONE 20 MG TAB PO SCH (08:37)
[2016-11-17] MEDS: Cefdinir 300 MG CAP PO SCH ×2 (08:37→20:44)
[2016-11-17] MEDS: Senokot S 8.6-50 MG TAB PO SCH (08:37)
--- NOTE | 2016-11-17 09:48 | PRG ---
DATE OF SERVICE: 11/17/2016 SUBJECTIVE: The patient said that he is doing good. He slept good last night. He is walking [facility]. He said he is eating good, not have any real problems swallowing. He said his mouth is a littl e sore. OBJECTIVE: The patient is lying in bed, alert, and appears comfortable in no distress. His tempera ture is 97.2, pulse 79, respirations 20, O2 saturation 98%, blood pressure 146/76. Lungs, there are good breath sounds. The patient has occasional little wheezes on forced expiration. There are antonio e coarse rales at the posterior bases, resolved with a deeper inspiration. Heart, regular rate. Mo uth mucous membranes are a little dry. Tongue is brown. ASSESSMENT: 1. Generalized weakness and deconditioning, followed two hospitalization first from 08/31/2016 to 09/06/2016 and the second from 09/17/2016 until 09/24/2016, both for acute exacerbations of his COPD with respiratory failure and atrial fibrillation. A. Continued improvement as of 11/17/2016. 2. Recent hospitalizations from 09/17/2016 until 09/24/2016 for: A. Acute exacerbation of chronic obstructive pulmonary disease with respiratory failure with atelectasis of the right lower lobe from severe tracheobronchitis requiring bronchoscopy. B. Recent cardioversion from atrial fibrillation to normal sinus rhythm on 09/03/2016 and remai ns in sinus rhythm. C. Replacement of biventricular ICD pacemaker on 09/23/2016. D. Bronchoscopy on 09/20/2016 for right lower lobe atelectasis with removal of extensive pus co mpletely occluding the right lower lobe with no endobronchial lesion and culture growing Swapna. 3. Coronary artery disease. A. Status post stent placement, right coronary artery in 2002. B. Status post aortic single vessel aortic valve bypass with aortic valve replacement in 2009. C. Stable as of 11/17/2016. 4. Aortic stenosis. A. Status post aortic valve replacement with a bovina bioprosthetic valve in 2009. 5. Nonischemic cardiomyopathy. A. Required initial biventricular ICD in 2005, generator replaced 2010 and again generator repl aced on 09/23/2016. B. Echocardiogram on 09/01/2016 showed an LV ejection fraction of 50-55%, normal functioning ao rtic valve prosthesis, bioprosthetic. C. Mild diastolic congestive heart failure, clinically resolved as of 10/04/2016. Improved as of 11/15/16. D. No evidence of acute congestive heart failure as of 11/17/2016. 6. Severe chronic obstructive pulmonary disease complicated by chronic hypoxemia requiring suppleme ntal O2. A. Complicated by some increased cough, sputum production and shortness of breath from a mild a cute exacerbation of his chronic obstructive pulmonary disease as of 10/13/2016. 1. Resolved as of 10/25/2016. B. Complicated by chronic linear streaking or opacification right middle lung, that I suspect represents either scarring and/or atelectasis as of 10/13/2016. C. Mild acute exacerbation as of 11/12/2016 manifest with increased wheezing and increased coug h and shortness of breath, particularly with exertion. Resolving as of 11/17/2016. 7. Hypertension. 8. Hyperlipidemia. 9. Obstructive sleep apnea for which he uses a CPAP. 10. Constipation. A. Controlled as of 11/10/2016. 11. Depression and anxiety. A. Controlled as of 11/10/2016. 12. Atrial fibrillation, paroxysmal. A. Status post cardioversion on 09/03/2016. B. Remains in sinus rhythm as of 09/24/2016. C. Anticoagulants being held due to right abdominal rectus muscle hematoma. 13. Oral candidiasis. A. Resolved as of 10/04/2016. 14. Insomnia. A. Controlled as of 10/11/2016. 15. Anorexia. A. Resolved as of 10/25/2016. 16. Dysphagia. A. Improved and tolerating regular diet as of 11/17/2016. 17. Oral candidiasis as of 11/17/2016. PLAN: The patient will complete his antibiotics in 5 days for the recent acute exacerbation of his COPD which is resolving. His prednisone will be tapered to 10 mg a day as of tomorrow. We will lisa ce patient on Mycostatin oral suspension to swish and swallow 4 times a day for a 10 day period. Co ntinue physical therapy. I visited with him about targeting a discharge date.
[2016-11-17] MEDS: Guaifenesin DM 100-10/5 ML UDCUP PO PRN (16:32)
[2016-11-17] MEDS: Melatonin 3 MG TAB PO SCH (20:44)
[2016-11-17] MEDS: Mirtazapine 30 MG Soltab PO SCH (20:44)
[2016-11-17] MEDS: Pravastatin Sodium 20 MG TAB PO SCH (20:45)
[2016-11-18] MEDS: Mometasone/Formoterol 60 PUFF AER INH SCH ×2 (06:01→19:16)
[2016-11-18] MEDS: Cefdinir 300 MG CAP PO SCH ×2 (08:23→20:30)
[2016-11-18] MEDS: Multivit, Therapeutic 1 TAB PO SCH (08:23)
[2016-11-18] MEDS: Sotalol HCl 80 MG TAB PO SCH ×2 (08:23→20:32)
[2016-11-18] MEDS: Docusate 100 MG CAP PO SCH (08:23)
[2016-11-18] MEDS: Aspirin 81 mg Enteric Coated Tablet PO SCH (08:23)
[2016-11-18] MEDS: Saccharomyces boulardii 250 MG CAP PO SCH (08:24)
[2016-11-18] MEDS: predniSONE 20 MG TAB PO SCH (08:24)
[2016-11-18] MEDS: guaiFENesin ER 600 MG TAB PO SCH ×2 (08:24→20:31)
[2016-11-18] MEDS: Furosemide 20 MG TAB PO SCH (08:24)
[2016-11-18] MEDS: Nystatin 500,000 UNITS/5 ML UDCUP SSW SCH ×4 (08:29→20:31)
[2016-11-18] MEDS: Senokot S 8.6-50 MG TAB PO SCH (08:29)
[2016-11-18] MEDS: Guaifenesin DM 100-10/5 ML UDCUP PO PRN (19:21)
[2016-11-18] MEDS: Mirtazapine 30 MG Soltab PO SCH (20:31)
[2016-11-18] MEDS: Melatonin 3 MG TAB PO SCH (20:31)
[2016-11-18] MEDS: Pravastatin Sodium 20 MG TAB PO SCH (20:32)
[2016-11-19] MEDS: Mometasone/Formoterol 60 PUFF AER INH SCH ×2 (06:14→19:08)
[2016-11-19] MEDS: Nystatin 500,000 UNITS/5 ML UDCUP SSW SCH ×4 (08:43→21:02)
[2016-11-19] MEDS: Senokot S 8.6-50 MG TAB PO SCH (08:44)
[2016-11-19] MEDS: Sotalol HCl 80 MG TAB PO SCH ×2 (08:44→21:01)
[2016-11-19] MEDS: Aspirin 81 mg Enteric Coated Tablet PO SCH (08:44)
[2016-11-19] MEDS: guaiFENesin ER 600 MG TAB PO SCH ×2 (08:44→21:02)
[2016-11-19] MEDS: Docusate 100 MG CAP PO SCH (08:44)
[2016-11-19] MEDS: Saccharomyces boulardii 250 MG CAP PO SCH (08:44)
[2016-11-19] MEDS: Multivit, Therapeutic 1 TAB PO SCH (08:44)
[2016-11-19] MEDS: Furosemide 20 MG TAB PO SCH (08:45)
[2016-11-19] MEDS: predniSONE 20 MG TAB PO SCH (08:45)
[2016-11-19] MEDS: Cefdinir 300 MG CAP PO SCH (08:45)
[2016-11-19] MEDS: Fluconazole 100 MG TAB PO SCH (11:03)
--- NOTE | 2016-11-19 15:41 | PRG ---
DATE OF SERVICE: 11/19/2016 SUBJECTIVE: The patient said he is eating good. His mouth feels better, but throat is still sore. He has been doing very well with his therapy. His O2 saturation has done well with his exercise. He is walking up to 200 feet with O2 at 2 liters. O2 will drop to 88. He does not complain of exce ssive shortness of breath with the exercise. He is transferring independently. OBJECTIVE: The patient is sitting up in a chair. He appears comfortable in no distress. His temp is 97.9, pulse 72, respirations 20, O2 saturation 94%, blood pressure 132/78. Lungs have good breat h sounds. There is very minimal wheeze on expiration. No rales. Overall, the lungs sound very goo d for him. Heart, regular rate. Extremities, no edema. ASSESSMENT: 1. Generalized weakness and deconditioning, followed two hospitalization first from 08/31/2016 to 09/06/2016 and the second from 09/17/2016 until 09/24/2016, both for acute exacerbations of his COPD with respiratory failure and atrial fibrillation. A. Marked improvement, ambulating up to 200 feet and transferring independently as of 7. 2. Recent hospitalizations from 09/17/2016 until 09/24/2016 for: A. Acute exacerbation of chronic obstructive pulmonary disease with respiratory failure with atelectasis of the right lower lobe from severe tracheobronchitis requiring bronchoscopy. B. Recent cardioversion from atrial fibrillation to normal sinus rhythm on 09/03/2016 and remai ns in sinus rhythm. C. Replacement of biventricular ICD pacemaker on 09/23/2016. D. Bronchoscopy on 09/20/2016 for right lower lobe atelectasis with removal of extensive pus co mpletely occluding the right lower lobe with no endobronchial lesion and culture growing Swapna. 3. Coronary artery disease. A. Status post stent placement, right coronary artery in 2002. B. Status post aortic single vessel aortic valve bypass with aortic valve replacement in 2009. C. Stable as of 11/19/2016. 4. Aortic stenosis. A. Status post aortic valve replacement with a bovina bioprosthetic valve in 2009. 5. Nonischemic cardiomyopathy. A. Required initial biventricular ICD in 2005, generator replaced 2010 and again generator repl aced on 09/23/2016. B. Echocardiogram on 09/01/2016 showed an LV ejection fraction of 50-55%, normal functioning ao rtic valve prosthesis, bioprosthetic. C. Mild diastolic congestive heart failure, clinically resolved as of 10/04/2016. Improved as of 11/15/16. D. No evidence of acute congestive heart failure as of 11/19/2016. 6. Severe chronic obstructive pulmonary disease complicated by chronic hypoxemia requiring suppleme ntal O2. A. Complicated by some increased cough, sputum production and shortness of breath from a mild a cute exacerbation of his chronic obstructive pulmonary disease as of 10/13/2016. 1. Resolved as of 10/25/2016. B. Complicated by chronic linear streaking or opacification right middle lung, that I suspect represents either scarring and/or atelectasis as of 10/13/2016. C. Mild acute exacerbation as of 11/12/2016. Resolved as of 11/19/2016. 7. Hypertension. 8. Hyperlipidemia. 9. Obstructive sleep apnea for which he uses a CPAP. 10. Constipation. A. Controlled as of 11/10/2016. 11. Depression and anxiety. A. Controlled as of 11/10/2016. 12. Atrial fibrillation, paroxysmal. A. Status post cardioversion on 09/03/2016. B. Remains in sinus rhythm as of 09/24/2016. C. Anticoagulants being held due to right abdominal rectus muscle hematoma. 13. Oral candidiasis. A. Resolved as of 10/04/2016. 14. Insomnia. A. Controlled as of 10/11/2016. 15. Anorexia. A. Resolved as of 10/25/2016. 16. Dysphagia. A. Improved and tolerating regular diet as of 11/19/2016. 17. Oral candidiasis as of 11/17/2016. Mouth is better, but having some soreness in the throat as of 11/19/2016. PLAN: Will stop the cefdinir since this may be perpetuating some of the soreness in the throat from the probable candidal infection. He has completed now a 7 day course which will be enough and his acute exacerbation of COPD is resolved. He is back on his regular dose of prednisone 10 mg a day. We will add Diflucan for 3 days orally. I visited with the patient about discharge. Will tentative ly looked toward next week. This will give he and his opportunity to make arrangements in the home and then we will look for discharge on 11/24/2016 or 11/26/2016.
[2016-11-19] MEDS: Pravastatin Sodium 20 MG TAB PO SCH (21:01)
[2016-11-19] MEDS: Mirtazapine 30 MG Soltab PO SCH (21:02)
[2016-11-19] MEDS: Melatonin 3 MG TAB PO SCH (21:02)
[2016-11-20] MEDS: Mometasone/Formoterol 60 PUFF AER INH SCH ×2 (05:43→18:09)
[2016-11-20] MEDS: Docusate 100 MG CAP PO SCH (08:56)
[2016-11-20] MEDS: guaiFENesin ER 600 MG TAB PO SCH ×2 (08:56→20:35)
[2016-11-20] MEDS: Multivit, Therapeutic 1 TAB PO SCH (08:56)
[2016-11-20] MEDS: Aspirin 81 mg Enteric Coated Tablet PO SCH (08:56)
[2016-11-20] MEDS: predniSONE 20 MG TAB PO SCH (08:57)
[2016-11-20] MEDS: Sotalol HCl 80 MG TAB PO SCH ×2 (08:57→20:37)
[2016-11-20] MEDS: Saccharomyces boulardii 250 MG CAP PO SCH (08:57)
[2016-11-20] MEDS: Senokot S 8.6-50 MG TAB PO SCH (08:57)
[2016-11-20] MEDS: Fluconazole 100 MG TAB PO SCH (08:58)
[2016-11-20] MEDS: Furosemide 20 MG TAB PO SCH (08:58)
[2016-11-20] MEDS: Nystatin 500,000 UNITS/5 ML UDCUP SSW SCH ×4 (09:01→20:36)
[2016-11-20] MEDS: Melatonin 3 MG TAB PO SCH (20:36)
[2016-11-20] MEDS: Mirtazapine 30 MG Soltab PO SCH (20:36)
[2016-11-20] MEDS: Pravastatin Sodium 20 MG TAB PO SCH (20:36)
[2016-11-21] MEDS: Mometasone/Formoterol 60 PUFF AER INH SCH (06:08)
[2016-11-21] MEDS: guaiFENesin ER 600 MG TAB PO SCH (08:38)
[2016-11-21] MEDS: predniSONE 20 MG TAB PO SCH (08:38)
[2016-11-21] MEDS: Nystatin 500,000 UNITS/5 ML UDCUP SSW SCH ×2 (08:38→12:11)
[2016-11-21] MEDS: Aspirin 81 mg Enteric Coated Tablet PO SCH (08:39)
[2016-11-21] MEDS: Furosemide 20 MG TAB PO SCH (08:39)
[2016-11-21] MEDS: Sotalol HCl 80 MG TAB PO SCH (08:39)
[2016-11-21] MEDS: Senokot S 8.6-50 MG TAB PO SCH (08:40)
[2016-11-21] MEDS: Docusate 100 MG CAP PO SCH (08:41)
[2016-11-21] MEDS: Saccharomyces boulardii 250 MG CAP PO SCH (08:41)
[2016-11-21] MEDS: Multivit, Therapeutic 1 TAB PO SCH (08:41)
[2016-11-21] MEDS: Fluconazole 100 MG TAB PO SCH (08:41)
[2016-11-22] MEDS: Nystatin 500,000 UNITS/5 ML UDCUP SSW SCH ×4 (09:05→20:54)
[2016-11-22] MEDS: Furosemide 20 MG TAB PO SCH (09:05)
[2016-11-22] MEDS: Saccharomyces boulardii 250 MG CAP PO SCH (09:05)
[2016-11-22] MEDS: Senokot S 8.6-50 MG TAB PO SCH (09:05)
[2016-11-22] MEDS: predniSONE 20 MG TAB PO SCH (09:06)
[2016-11-22] MEDS: Aspirin 81 mg Enteric Coated Tablet PO SCH (09:06)
[2016-11-22] MEDS: Docusate 100 MG CAP PO SCH (09:06)
[2016-11-22] MEDS: guaiFENesin ER 600 MG TAB PO SCH ×2 (09:06→20:51)
[2016-11-22] MEDS: Multivit, Therapeutic 1 TAB PO SCH (09:06)
[2016-11-22] MEDS: Sotalol HCl 80 MG TAB PO SCH ×2 (09:07→20:52)
[2016-11-22 10:25] LABS: ALT (SGPT) 25 U/L (0-55); AST (SGOT) 25 U/L (5-34); Albumin 3.4 g/dL (3.4-4.8); Alkaline Phosphatase 51 U/L (40-150); Anion Gap 17 mmol/L (10-20); BUN (Urea Nitrogen) 23 mg/dL (8.4-25.7); Bilirubin, Total Less than 0.3 mg/dL (0.2-1.2); Calc. Creatinine Clearance 81 mL/min (70-130); Calcium 9.8 mg/dL (7.8-10.44); Carbon Dioxide 35 mmol/L (23-31); Chloride 93 mmol/L (98-107); Estimated GFR-MDRD Greater than 90; Globulin 2.9 g/dL (2.4-3.5); Glucose 110 mg/dL (83-110); Protein, Total 6.3 g/dL (5.8-8.1); Sodium 140 mmol/L (136-145)
--- NOTE | 2016-11-22 14:20 | PRG ---
DATE OF SERVICE: 11/22/2016 SUBJECTIVE: The patient said he had a good night. The patient said he has been doing good. His br eathing is doing good. The patient said his mouth is feeling good and his throat is not hurting. OBJECTIVE: The patient is lying in bed and appears alert and in no distress. His temp is 97.6, pul se 68, respirations 20, O2 saturation 97%, blood pressure 139/76. Lungs are clear except for some m ild coarse expiratory breath sounds. There are no rales. Heart: Regular rate. Extremities, no ed dina. ASSESSMENT: 1. Generalized weakness and deconditioning, followed two hospitalization first from 08/31/2016 to 09/06/2016 and the second from 09/17/2016 until 09/24/2016, both for acute exacerbations of his COPD with respiratory failure and atrial fibrillation. A. Marked improvement, ambulating up to 200 feet and transferring independently as of 7. 2. Recent hospitalizations from 09/17/2016 until 09/24/2016 for: A. Acute exacerbation of chronic obstructive pulmonary disease with respiratory failure with atelectasis of the right lower lobe from severe tracheobronchitis requiring bronchoscopy. B. Recent cardioversion from atrial fibrillation to normal sinus rhythm on 09/03/2016 and remai ns in sinus rhythm. C. Replacement of biventricular ICD pacemaker on 09/23/2016. D. Bronchoscopy on 09/20/2016 for right lower lobe atelectasis with removal of extensive pus co mpletely occluding the right lower lobe with no endobronchial lesion and culture growing Swapna. 3. Coronary artery disease. A. Status post stent placement, right coronary artery in 2002. B. Status post aortic single vessel aortic valve bypass with aortic valve replacement in 2009. C. Stable as of 11/22/2016. 4. Aortic stenosis. A. Status post aortic valve replacement with a bovina bioprosthetic valve in 2009. 5. Nonischemic cardiomyopathy. A. Required initial biventricular ICD in 2005, generator replaced 2010 and again generator repl aced on 09/23/2016. B. Echocardiogram on 09/01/2016 showed an LV ejection fraction of 50-55%, normal functioning ao rtic valve prosthesis, bioprosthetic. C. Mild diastolic congestive heart failure, clinically resolved as of 10/04/2016. Improved as of 11/15/16. D. No evidence of acute congestive heart failure as of 11/22/2016. 6. Severe chronic obstructive pulmonary disease complicated by chronic hypoxemia requiring suppleme ntal O2. A. Complicated by some increased cough, sputum production and shortness of breath from a mild a cute exacerbation of his chronic obstructive pulmonary disease as of 10/13/2016. 1. Resolved as of 10/25/2016. B. Complicated by chronic linear streaking or opacification right middle lung, that I suspect represents either scarring and/or atelectasis as of 10/13/2016. C. Mild acute exacerbation as of 11/12/2016. Resolved as of 11/19/2016. 7. Hypertension. 8. Hyperlipidemia. 9. Obstructive sleep apnea for which he uses a CPAP. 10. Constipation. A. Controlled as of 11/10/2016. 11. Depression and anxiety. A. Controlled as of 11/10/2016. 12. Atrial fibrillation, paroxysmal. A. Status post cardioversion on 09/03/2016. B. Remains in sinus rhythm as of 09/24/2016. C. Anticoagulants being held due to right abdominal rectus muscle hematoma. 13. Oral candidiasis. A. Resolved as of 10/04/2016. 14. Insomnia. A. Controlled as of 10/11/2016. 15. Anorexia. A. Resolved as of 10/25/2016. 16. Dysphagia. A. Essentially resolved and tolerating a regular diet as of 11/22/2016. 17. Oral candidiasis as of 11/17/2016. Mouth is better, but having some soreness in the throat as o f 11/19/2016. A. Resolved as of 11/22/2016. PLAN: Continue physical therapy. Complete the 10-day course of Mycostatin. Family tentatively pre paring for the patient discharged on Tuesday11/26/2016.
[2016-11-22] MEDS: Mometasone/Formoterol 60 PUFF AER INH SCH (18:15)
[2016-11-22 19:37] VITALS: BMI 23.1
[2016-11-22] MEDS: Pravastatin Sodium 20 MG TAB PO SCH ×2 (20:50→20:51)
[2016-11-22] MEDS: Melatonin 3 MG TAB PO SCH (20:51)
[2016-11-22] MEDS: Mirtazapine 30 MG Soltab PO SCH (20:52)
[2016-11-22] MEDS: Milk Of Magnesia 30 ML UDCUP PO PRN (21:21)
[2016-11-23] MEDS: Mometasone/Formoterol 60 PUFF AER INH SCH ×4 (05:28→18:05)
[2016-11-23 05:38] LABS: #Basophils 0.1 thou/uL (0.0-0.2); #Eosinphils 0.1 thou/uL (0.0-0.7); #Lymphocytes 1.7 thou/uL (1.20-3.40); #Neutrophils 7.1 thou/uL (1.40-6.50); %Basophils 0.6 % (0.0-1.0); %Eosinophils 1.3 % (0.0-10.0); %Lymphocytes 17.2 % (21.0-51.0); %Monocytes 9.6 % (0.0-10.0); %Neutrophils 71.4 % (42.0-75.0); Hemoglobin 10.8 g/dL (14.0-18.0); Mean Corpuscular HGB CONC 32.3 g/dL (32.0-36.0); Mean Corpuscular Hemoglobin 32.7 pg (27.0-31.0); Mean Corpuscular Volume 101.3 fl (80.0-94.0); Mean Platelet Volume 6.5 fL (7.4-10.4); Platelet Count 218 thou/uL (130-400); RBC Distribution Width 16.7 % (11.5-14.5); White Blood Cell (WBC) Count 9.9 thou/uL (4.8-10.8)
[2016-11-23] MEDS: guaiFENesin ER 600 MG TAB PO SCH ×2 (09:02→20:20)
[2016-11-23] MEDS: Senokot S 8.6-50 MG TAB PO SCH (09:03)
[2016-11-23] MEDS: Multivit, Therapeutic 1 TAB PO SCH (09:03)
[2016-11-23] MEDS: Aspirin 81 mg Enteric Coated Tablet PO SCH (09:03)
[2016-11-23] MEDS: Saccharomyces boulardii 250 MG CAP PO SCH (09:03)
[2016-11-23] MEDS: Sotalol HCl 80 MG TAB PO SCH ×2 (09:03→20:21)
[2016-11-23] MEDS: predniSONE 20 MG TAB PO SCH (09:04)
[2016-11-23] MEDS: Furosemide 20 MG TAB PO SCH (09:05)
[2016-11-23] MEDS: Nystatin 500,000 UNITS/5 ML UDCUP SSW SCH ×5 (09:05→20:20)
[2016-11-23] MEDS: Docusate 100 MG CAP PO SCH (09:05)
[2016-11-23] MEDS: Acetaminophen 325 MG TAB PO PRN (11:48)
[2016-11-23] MEDS: Mirtazapine 30 MG Soltab PO SCH (20:20)
[2016-11-23] MEDS: Melatonin 3 MG TAB PO SCH (20:20)
[2016-11-23] MEDS: Pravastatin Sodium 20 MG TAB PO SCH (20:20)
[2016-11-24] MEDS: Mometasone/Formoterol 60 PUFF AER INH SCH ×2 (06:17→18:14)
[2016-11-24] MEDS ORDERED: Bisacodyl 5 MG TAB PO PRN (08:14)
[2016-11-24] MEDS: Nystatin 500,000 UNITS/5 ML UDCUP SSW SCH ×4 (08:41→20:18)
[2016-11-24] MEDS: Sotalol HCl 80 MG TAB PO SCH ×2 (08:41→20:17)
[2016-11-24] MEDS: predniSONE 20 MG TAB PO SCH (08:42)
[2016-11-24] MEDS: Multivit, Therapeutic 1 TAB PO SCH (08:42)
[2016-11-24] MEDS: Docusate 100 MG CAP PO SCH (08:42)
[2016-11-24] MEDS: Furosemide 20 MG TAB PO SCH (08:42)
[2016-11-24] MEDS: guaiFENesin ER 600 MG TAB PO SCH ×2 (08:43→20:18)
[2016-11-24] MEDS: Saccharomyces boulardii 250 MG CAP PO SCH (08:43)
[2016-11-24] MEDS: Aspirin 81 mg Enteric Coated Tablet PO SCH (08:43)
[2016-11-24] MEDS: Senokot S 8.6-50 MG TAB PO SCH ×2 (08:45→20:18)
--- NOTE | 2016-11-24 11:24 | PRG ---
DATE OF SERVICE: 11/24/2016 SUBJECTIVE: The patient said that he is having trouble with constipation again. He had previously been on Senokot S, but had reduced this in the evening and now he said he has gotten constipated aga in. The patient is doing well with his therapy. Occupational therapist said he has done very well with his self-care. OBJECTIVE: The patient is lying in bed, alert, and appears comfortable in no distress. His vital s igns shows temperature is 97.9, pulse 74, respirations 20, O2 sat 96% on 2 liters. Lungs are clear. Heart, regular rate. ASSESSMENT: 1. Generalized weakness and deconditioning, followed two hospitalization first from 08/31/2016 to 09/06/2016 and the second from 09/17/2016 until 09/24/2016, both for acute exacerbations of his COPD with respiratory failure and atrial fibrillation. A. Continued improvement as of 11/24/2016. 2. Recent hospitalizations from 09/17/2016 until 09/24/2016 for: A. Acute exacerbation of chronic obstructive pulmonary disease with respiratory failure with atelectasis of the right lower lobe from severe tracheobronchitis requiring bronchoscopy. B. Recent cardioversion from atrial fibrillation to normal sinus rhythm on 09/03/2016 and remai ns in sinus rhythm. C. Replacement of biventricular ICD pacemaker on 09/23/2016. D. Bronchoscopy on 09/20/2016 for right lower lobe atelectasis with removal of extensive pus co mpletely occluding the right lower lobe with no endobronchial lesion and culture growing Swapna. 3. Coronary artery disease. A. Status post stent placement, right coronary artery in 2002. B. Status post aortic single vessel aortic valve bypass with aortic valve replacement in 2009. C. Stable as of 11/24/2016. 4. Aortic stenosis. A. Status post aortic valve replacement with a bovina bioprosthetic valve in 2009. 5. Nonischemic cardiomyopathy. A. Required initial biventricular ICD in 2005, generator replaced 2010 and again generator repl aced on 09/23/2016. B. Echocardiogram on 09/01/2016 showed an LV ejection fraction of 50-55%, normal functioning ao rtic valve prosthesis, bioprosthetic. C. Mild diastolic congestive heart failure, clinically resolved as of 10/04/2016. Improved as of 11/15/16. D. No evidence of acute congestive heart failure as of 11/24/2016. 6. Severe chronic obstructive pulmonary disease complicated by chronic hypoxemia requiring suppleme ntal O2. A. Complicated by some increased cough, sputum production and shortness of breath from a mild a cute exacerbation of his chronic obstructive pulmonary disease as of 10/13/2016. 1. Resolved as of 10/25/2016. B. Complicated by chronic linear streaking or opacification right middle lung, that I suspect represents either scarring and/or atelectasis as of 10/13/2016. C. Mild acute exacerbation as of 11/12/2016. Resolved as of 11/19/2016. D. Stable as of 11/24/2016. 7. Hypertension. 8. Hyperlipidemia. 9. Obstructive sleep apnea for which he uses a CPAP. 10. Constipation. A. The patient is again having some trouble with constipation. 11. Depression and anxiety. A. Controlled as of 11/10/2016. 12. Atrial fibrillation, paroxysmal. A. Status post cardioversion on 09/03/2016. B. Remains in sinus rhythm as of 09/24/2016. C. Anticoagulants being held due to right abdominal rectus muscle hematoma. 13. Oral candidiasis. A. Resolved as of 10/04/2016. 14. Insomnia. A. Controlled as of 10/11/2016. 15. Anorexia. A. Resolved as of 10/25/2016. 16. Dysphagia. A. Essentially resolved and tolerating a regular diet as of 11/22/2016. 17. Oral candidiasis as of 11/17/2016. Mouth is better, but having some soreness in the throat as o f 11/19/2016. A. Resolved as of 11/22/2016. PLAN: We will increase the Senokot S to 2 b.i.d. We will change Dulcolax suppository to tablets as needed. We will stop the Milk of Magnesia since he says this does not help. I spoke with him about anticipation of discharge on Tuesday11/26/2016.
[2016-11-24] MEDS: Pravastatin Sodium 20 MG TAB PO SCH (20:17)
[2016-11-24] MEDS: Melatonin 3 MG TAB PO SCH (20:17)
[2016-11-24] MEDS: Mirtazapine 30 MG Soltab PO SCH (20:18)
[2016-11-25] MEDS: Mometasone/Formoterol 60 PUFF AER INH SCH ×2 (06:16→18:57)
[2016-11-25] MEDS: Senokot S 8.6-50 MG TAB PO SCH ×2 (08:48→20:03)
[2016-11-25] MEDS: Saccharomyces boulardii 250 MG CAP PO SCH (08:48)
[2016-11-25] MEDS: guaiFENesin ER 600 MG TAB PO SCH ×2 (08:51→20:02)
[2016-11-25] MEDS: Multivit, Therapeutic 1 TAB PO SCH (08:51)
[2016-11-25] MEDS: Sotalol HCl 80 MG TAB PO SCH ×2 (08:52→20:01)
[2016-11-25] MEDS: predniSONE 20 MG TAB PO SCH (08:52)
[2016-11-25] MEDS: Furosemide 20 MG TAB PO SCH (08:52)
[2016-11-25] MEDS: Docusate 100 MG CAP PO SCH (08:52)
[2016-11-25] MEDS: Aspirin 81 mg Enteric Coated Tablet PO SCH (08:53)
[2016-11-25] MEDS: Nystatin 500,000 UNITS/5 ML UDCUP SSW SCH ×4 (08:53→20:02)
[2016-11-25] MEDS: Mirtazapine 30 MG Soltab PO SCH (20:01)
[2016-11-25] MEDS: Pravastatin Sodium 20 MG TAB PO SCH (20:02)
[2016-11-25] MEDS: Melatonin 3 MG TAB PO SCH (20:02)
[2016-11-26] MEDS: Mometasone/Formoterol 60 PUFF AER INH SCH (05:43)
[2016-11-26] MEDS: Furosemide 20 MG TAB PO SCH (08:27)
[2016-11-26] MEDS: Senokot S 8.6-50 MG TAB PO SCH (08:27)
[2016-11-26] MEDS: Docusate 100 MG CAP PO SCH (08:27)
[2016-11-26] MEDS: guaiFENesin ER 600 MG TAB PO SCH (08:27)
[2016-11-26] MEDS: predniSONE 20 MG TAB PO SCH (08:28)
[2016-11-26] MEDS: Multivit, Therapeutic 1 TAB PO SCH (08:28)
[2016-11-26] MEDS: Aspirin 81 mg Enteric Coated Tablet PO SCH (08:28)
[2016-11-26] MEDS: Sotalol HCl 80 MG TAB PO SCH (08:29)
[2016-11-26] MEDS: Saccharomyces boulardii 250 MG CAP PO SCH (08:29)
[2016-11-26] MEDS: Nystatin 500,000 UNITS/5 ML UDCUP SSW SCH (08:31)
[2016-11-26 08:37] VITALS: TEMP 97.6
[2016-11-26 10:43] VITALS: BP 121/71
--- NOTE | 2016-11-26 12:20 | DIS ---
FINAL DIAGNOSES: 1. Generalized weakness and deconditioning, followed two hospitalization first from 08/31/2016 to 09/06/2016 and the second from 09/17/2016 until 09/24/2016, both for acute exacerbations of his COPD with respiratory failure and atrial fibrillation. A. Continued improvement where he is walking 50-200 feet with a rolling walker and transferring with just standby assistance as of 11/26/2016. 2. Recent hospitalizations from 09/17/2016 until 09/24/2016 for: A. Acute exacerbation of chronic obstructive pulmonary disease with respiratory failure with atelectasis of the right lower lobe from severe tracheobronchitis requiring bronchoscopy. B. Recent cardioversion from atrial fibrillation to normal sinus rhythm on 09/03/2016 and remai ns in sinus rhythm. C. Replacement of biventricular ICD pacemaker on 09/23/2016. D. Bronchoscopy on 09/20/2016 for right lower lobe atelectasis with removal of extensive pus co mpletely occluding the right lower lobe with no endobronchial lesion and culture growing Swapna. 3. Coronary artery disease. A. Status post stent placement, right coronary artery in 2002. B. Status post aortic single vessel aortic valve bypass with aortic valve replacement in 2009. C. Stable as of 11/26/2016. 4. Aortic stenosis. A. Status post aortic valve replacement with a bovina bioprosthetic valve in 2009. 5. Nonischemic cardiomyopathy. A. Required initial biventricular ICD in 2005, generator replaced 2010 and again generator repl aced on 09/23/2016. B. Echocardiogram on 09/01/2016 showed an LV ejection fraction of 50-55%, normal functioning ao rtic valve prosthesis, bioprosthetic. C. Mild diastolic congestive heart failure, clinically resolved as of 10/04/2016. Improved as of 11/15/16. D. No evidence of acute congestive heart failure as of 11/26/2016. 6. Severe chronic obstructive pulmonary disease complicated by chronic hypoxemia requiring suppleme ntal O2. A. Complicated by some increased cough, sputum production and shortness of breath from a mild a cute exacerbation of his chronic obstructive pulmonary disease as of 10/13/2016. 1. Resolved as of 10/25/2016. B. Complicated by chronic linear streaking or opacification right middle lung, that I suspect represents either scarring and/or atelectasis as of 10/13/2016. C. Mild acute exacerbation as of 11/12/2016. Resolved as of 11/19/2016. D. Stable with O2 sat of 95% on 2 liters by nasal cannula as of 11/26/2016. 7. Hypertension. 8. Hyperlipidemia. 9. Obstructive sleep apnea for which he uses a CPAP. 10. Constipation. A. Controlled with Senokot S tablets. 11. Depression and anxiety. A. Controlled as of 11/26/2016. 12. Atrial fibrillation, paroxysmal. A. Status post cardioversion on 09/03/2016. B. Remains in sinus rhythm as of . C. Anticoagulants being held due to right abdominal rectus muscle hematoma. 13. Oral candidiasis. A. Resolved as of 10/04/2016. 14. Insomnia. A. Controlled as of 10/11/2016. 15. Anorexia. A. Resolved as of 10/25/2016. 16. Dysphagia. A. Essentially resolved and tolerating a regular diet as of 11/22/2016. SUMMARY: The patient is a 76-year-old white male who has a history of severe COPD with chronic hypo xic respiratory failure requiring supplemental O2. As a result of this, his functional capabilities are severely diminished. He also has coronary artery disease for which he has undergone a single v essel bypass in 2009 and had a stent placed prior to that in 2002. He has severe aortic stenosis fo r which he underwent a bioprosthetic valve replacement in 2009. He has been left with a nonischemic cardiomyopathy and has a biventricular pacemaker/defibrillator that was implanted 02/23/2011 with a generator replacement on 09/23/2016. He also has a history of atrial fibrillation, paroxysmal, and hypertension and hyperlipidemia. The patient had been hospitalized at [facility] from 10/31/2015 to 09/06/2016 and then again from 09/17/2016 until 09/24/2016, both episodes for acute exa cerbation of his COPD with respiratory failure and episodes of atrial fibrillation. He had develope d a rectus abdominal muscle hematoma from his anticoagulant Lovenox and his Coumadin has been stoppe d. His acute exacerbations were managed with steroids, IV antibiotics, and frequent nebulization tr eatments. During the last admission, he developed extensive atelectasis of the right middle lobe an d underwent a bronchoscopy with removal of extensive pus that was completely occluding the right low er lobe. There were no endobronchial lesions. The culture grew a yeast that is Swapna. He was tr eated for extensive tracheobronchitis and atelectasis in the right lower lobe during this last hospi talization. He also had an episode of rapid atrial fibrillation for which he underwent a cardiovers ion. His last echocardiogram on 09/01/2016 showed ejection fraction of 50-55% with normal aortic va lve prosthesis functioning. The patient was left very weak and level of care exceeded what could be provided at home. The patient was transferred to [facility] on 09/24/2016 d ue to the extreme weakness and deconditioning. HOSPITAL COURSE: The patient was in the snf facility here at [facility] for an ex tended period of time. During this period Physical Therapy and Occupational Therapy worked with him in an effort to try to help improve his general functional capabilities. Initially, the patient wa s essentially bed confined and gradually with strengthening he was able to tolerate periods of sitti ng up in bed and then gradually was able to begin walking in the room and then in the hallways. Ear ly during the admission he had difficulty with much exertion due to drop in his O2 saturations even with the supplemental O2. Gradually the patient's conditioning improved and by the time of his disc harge, he was walking at times up to 200 feet with supplemental oxygen on and without significant de saturation. He would walk with a walker with wheels. He was able to transfer usually independently , but he had just standby assistance. Occupational therapist worked with him to where he was able t o feed himself, was able to shower himself with just standby assistance. Early during his admission , he had some trouble with swallowing. He had been seen several times by speech therapist and with diet modification using a mechanical soft diet and with coaching sitting upright, eating slowing and slow bites, he did very well. Often times he would get in too much of a hurry and get into trouble . Gradually this improved and he was able to progress back to a regular diet. During the hospitali zation, he had 2 episodes of again acute exacerbations of his COPD requiring antibiotics, Omnicef fo r a 10-day course and prednisone 40 mg a day and then tapered back to his base of 10 mg a day which he is on chronically. Upon his admission and later through the hospitalization, he developed an ora l candidiasis that was managed with Mycostatin swish and swallow and with Diflucan. The patient's o verall condition was one of gradual improvement. The patient did exhibit earlier during his hospita lization on the x-ray, an area of streaking across right middle lobe that was stable, that probably represented either some scarring or possible atelectasis. The patient's condition slowly improved t o where it is felt that the patient could be managed at home. His will be primary caregiver an d home health will assist and also help with in home physical therapy. The patient's functional cap abilities are limited due to his advanced COPD complicated by chronic hypoxemia. During the hospita lization, he remained in a sinus rhythm. His Coumadin had been held due to the hematoma and this starkey s not been restarted. During the hospitalization, he had trouble with constipation, it was found th at what seemed to work best for him was Senokot-S 2 tablets twice a day. By 11/26/2016 his conditio n was stable, his O2 sat was 95% on 2 liters. He had good lung sounds and just some mild wheeze pelon t were chronic on expiration. His weight was up to 152. His admission weight was 150. He had drop ped down some during the hospitalization to 142, but has regained his basal weight. The patient did have some problems with depression and anorexia and anxiety. This has marked improved with the add ition of the mirtazapine. The patient was discharged on 11/26/2016. We will arrange for patient to be seen in followup in my office and also arrange for him to see his making department preparer in follow up. DISPOSITION: DIET: Regular diet. No added salt. ACTIVITIES: Ambulate with the use of a walker with wheels. ACTIVITIES: Within his tolerance. The patient will need to use his O2 at 2 liters continuous. We will arrange for physical therapy in home through home health. PRESENT MEDICATIONS: Acetaminophen 325 mg 2 every 4 hours as needed, Maalox 30 mL every 4 hours as needed, DuoNeb by nebulizer q.i.d. and every 4 hours as needed, albuterol inhaler 2 puffs every 4 ho urs as needed, aspirin 81 mg daily, Dulcolax tablets 5 mg daily p.r.n., Colace 100 mg daily, furosem juan 20 mg daily, Mucinex 1200 mg b.i.d., melatonin 3 mg at bedtime, mirtazapine 30 mg at bedtime, Du mandie 200/5 two inhalations b.i.d., multiple vitamin Theragran-M 1 daily, pantoprazole 40 mg daily, p ravastatin 40 mg daily, Senokot-S 2 b.i.d., sotalol 80 mg b.i.d. FOLLOW UP: The patient will need to be seen in my office in 2 weeks. The patient also will need to follow up with his making department preparer, Dr. Ng and with his pulmonary doctor, Dr. Vicente. I will see jeanine sheffield in followup in 2 weeks. CODE STATUS: Full code.
== END 2016-11-26 01:45 | disposition home health service (06) | DRG 191 ==
LOC: MADMS 13:19
PROVIDERS: ADMIT Family Medicine; ATTEND Family Medicine
DX: J44.1 Chronic obstructive pulmonary disease with (acute) exacerbation (principal); I42.9 Cardiomyopathy, unspecified; J96.11 Chronic respiratory failure with hypoxia; B37.0 Candidal stomatitis; I50.32 Chronic diastolic (congestive) heart failure; Z99.81 Dependence on supplemental oxygen; I11.0 Hypertensive heart disease with heart failure; J98.11 Atelectasis; J44.0 Chronic obstructive pulmonary disease with (acute) lower respiratory infection; J20.9 Acute bronchitis, unspecified; G47.33 Obstructive sleep apnea (adult) (pediatric); Z95.810 Presence of automatic (implantable) cardiac defibrillator; M79.81 Nontraumatic hematoma of soft tissue; T45.515D Adverse effect of anticoagulants, subsequent encounter; I25.10 Atherosclerotic heart disease of native coronary artery without angina pectoris; Z95.5 Presence of coronary angioplasty implant and graft; Z95.1 Presence of aortocoronary bypass graft; Z95.3 Presence of xenogenic heart valve; E78.5 Hyperlipidemia, unspecified; K59.00 Constipation, unspecified; F32.9 Major depressive disorder, single episode, unspecified; F41.9 Anxiety disorder, unspecified; I48.0 Paroxysmal atrial fibrillation; G47.00 Insomnia, unspecified; R63.0 Anorexia; Z68.20 Body mass index [BMI] 20.0-20.9, adult; R13.10 Dysphagia, unspecified
CPT/HCPCS: 36415; 71010; 80048; 80053; 81001; 85025; 94640; 94664; A4216; G8978-GP-CJ; G8979-GP-CI; G8996-GN-CJ; G8997-GN-CJ; G8998-GN-CJ; J7506; J7620

== ENCOUNTER 2017-04-01 10:36 | Emergency (ER) | payer MEDICARE, BC ==
[~2017-04-01 10:36] MED LIST: Calcium Chloride 1 GM/10 ML Abboject SYRINGE ONE; EPINEPHrine 1 MG/10 ML Abboject SYRINGE ONE; Lidocaine 2% PF 100 mg/5 ml Syringe ONE; Sodium Bicarb 50 MEQ/50 ML Abboject 8.4% SYRINGE ONE
[2017-04-01] MEDS ORDERED: Sodium Chloride 0.9% 100 ML BAG ONE (10:49)
[2017-04-01] MEDS ORDERED: Sodium Chloride 0.9% 1,000 ML BAG ONE (10:49)
[2017-04-01] MEDS ORDERED: Lidocaine 2% PF 100 mg/5 ml Syringe ONE (11:10)
[2017-04-01 11:36] LABS: #Basophils 0.1 thou/uL (0.0-0.2); #Eosinphils 0.1 thou/uL (0.0-0.7); #Monocytes 0.4 thou/uL (0.11-0.59); %Basophils 1.1 % (0.0-1.0); %Eosinophils 0.5 % (0.0-10.0); %Lymphocytes 41.4 % (21.0-51.0); %Monocytes 2.9 % (0.0-10.0); %Neutrophils 54.1 % (42.0-75.0); Hemoglobin 11.2 g/dL (14.0-18.0); MDiff Complete? YES; Manual Diff?? NO; Mean Corpuscular Hemoglobin 30.8 pg (27.0-31.0); Mean Corpuscular Volume 102.6 fl (80.0-94.0); Platelet Count 140 thou/uL (130-400); RBC Distribution Width 15.6 % (11.5-14.5); Red Blood Cell (RBC) Count 3.65 mill/uL (4.70-6.10)
[2017-04-01 11:44] LABS: CKMB 2.2 ng/mL (0-6.6); Troponin I 0.123 ng/mL (< 0.028)
[2017-04-01 11:46] LABS: ALT (SGPT) 24 U/L (8-55); AST (SGOT) 30 U/L (5-34); Albumin 2.3 g/dL (3.4-4.8); Alkaline Phosphatase 63 U/L (40-150); Anion Gap 26 mmol/L (10-20); BUN (Urea Nitrogen) 20 mg/dL (8.4-25.7); Bilirubin, Total 0.4 mg/dL (0.2-1.2); CK (CPK) 52 U/L (30-200); Calc. Creatinine Clearance 0 mL/min (70-130); Calcium 9.6 mg/dL (7.8-10.44); Carbon Dioxide 29 mmol/L (23-31); Chloride 93 mmol/L (98-107); Estimated GFR-MDRD Greater than 90; Globulin 2.1 g/dL (2.4-3.5); Glucose 159 mg/dL (83-110); Lipase 10 U/L (8-78); Potassium 4.9 mmol/L (3.5-5.1); Protein, Total 4.4 g/dL (5.8-8.1); Sodium 143 mmol/L (136-145)
== END 2017-04-01 11:25 | disposition expired ==
LOC: MADERS 10:36
DX: I46.9 Cardiac arrest, cause unspecified (principal); I11.0 Hypertensive heart disease with heart failure; I50.9 Heart failure, unspecified; J44.9 Chronic obstructive pulmonary disease, unspecified; F41.9 Anxiety disorder, unspecified; F31.9 Bipolar disorder, unspecified; F17.290 Nicotine dependence, other tobacco product, uncomplicated
CPT/HCPCS: 36415; 80053; 82550; 82553; 83690; 84484; 85025; 99291; A4216; J0171; J0282; J2001; J7050